=== PATIENT | male | born 1980 | race Caucasian/White ===

== ENCOUNTER 2022-01-26 17:06 | Outpatient (CLI) | payer OTHER, SELFPAY ==
--- OUTSIDE RECORDS SUMMARY | 2022-01-26 07:35 | XMS_ITS | Encounter Summary ---
:1980 Author Organization [facility] Address [address] [place] [address] Care Team Providers Name Role Phone Unavailable Primary Care Provider Unavailable Encounter Details Date Type Department Care Team Description 09/23/2020 [facility] Samantha Cortez Injury Of AND CLINICS Yefri Espinoza Unspecified Body [address] [place] [address] [facility] [place] [address] [place], [place] Encounter (Primary [phone] [id number] Dx) Social History Tobacco Use Types Packs/Day Years Used Date Smoking Tobacco: Never Smokeless Tobacco: Never Alcohol Use Standard Drinks/Week Comments No 0 (1 standard drink = 0.6 oz pure alcoho l) 2-3 mugs coffee daily Alcohol Habits Answer Date Recorded How often do you have a drink containing alcohol? Monthly or less 06/17/2020 How many drinks containing alcohol do you have on 1 or 2 06/17/2020 a typical day when you are drinking? How often do you have six or more drinks on one Never 05/04/2019 occasion? Comment: 2-3 mugs coffee daily 11/26/2017 Social Isolation Answer Date Recorded In a typical week, how many times do you talk on Twice a wee k 06/17/2020 the phone with family, friends, or neighbors? How often do you get together with friends or Never 06/17/2020 relatives? How often do you attend presybeterian or caodaism Never 05/04/2019 services? Do you belong to any clubs or organizations such No 06/17/2020 as presybeterian groups, unions, fraternal or athletic groups, or school groups? How often do you attend meetings of the clubs or 1 to 4 time s per year 06/17/2020 organizations you belong to? Are you now , , , 05/04/2019 , never or living with a partner? Physical Activity Answer Date Recorded On average, how many days per week do you engage in moderate to 3 days 06/17/2020 strenuous exercise (like walking fast, running, jogging, dancing, swimming, biking, or other activities that cause a light or heavy sweat)? On average, how many minutes do you engage in exercise at th is 60 min 06/17/2020 level? Stress Answer Date Recorded Do you feel stress - tense, restless, nervous, or To some ex tent 06/17/2020 anxious, or unable to sleep at night because your mind is troubled all the time - these days? Financial Resource Strain Answer Date Recorded How hard is it for you to pay for the very basics like Not v porter hard 06/17/2020 food, housing, medical care, and heating? Food Insecurity Answer Date Recorded Within the past 12 months, you worried that your food would Never true 05/04/2019 run out before you got money to buy more. Within the past 12 months, the food you bought just didn't N ever true 05/04/2019 last and you didn't have money to get more. Transportation Needs Answer Date Recorded In the past 12 months, has lack of transportation kept you f rom No 05/04/2019 medical appointments or from getting medications? In the past 12 months, has lack of transportation kept you f rom No 05/04/2019 meetings, work, or getting things needed for daily living? Education Answer Date Recorded What is the highest level of school Bachelor's degree (e.g., BA, AB, 05/04/2019 you have completed or the highest BS) degree you have received? 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
--- OUTSIDE RECORDS SUMMARY | 2022-01-26 07:35 | XMS_ITS | Encounter Summary ---
:1980 Author Organization [facility] Address [address] [place] [address] Care Team Providers Name Role Phone Unavailable Primary Care Provider Unavailable Reason for Visit MRI/CAT/PET Scan (Routine) - Closed Specialty Diagnoses / Procedures Referred By Contact Refer red To Contact Radiology Diagnoses Pain Low Back Unspecified Holli Belle P.A.-C., [facility] Procedures MR Lumbar Spine without and with IV Contrast MR Lumbar Spine without IV Contrast AL MRI LUMB SPINE WO CNTRST HC MRI LUMB SPINE WO CNTRST AL MRI LUMB SPINE WO/W CNTRST HC MRI LUMB SPINE WO/W CNTRST AL MRI LUMB SPINE WO/W CNTRST M.S. [address] [place] [phone] Referral ID Status Reason Start Date Expiration Date Visits Requ ested Visits Authorized [id number] Closed 02/28/2018 02/28/2019 1 1 Encounter Details Date Type Department Care Team Description 03/11/2018 Hospital Encounter Department of Radiology, Chidi Belle i, Pain Low Back el Uriarte P.A.-C., M.S. [place], [place] [address] [place] [address] [place] [phone] Social History Tobacco Use Types Packs/Day Years [...] 06/17/2020 relatives? How often do you attend hindu or gnosticism Never 05/04/2019 services? Do you belong to any clubs or organizations such No 06/17/2020 as hindu groups, unions, fraternal or athletic groups, or [...] or getting things needed for daily living? Sex Assigned at Date Recorded Not on file documented as of this encounter Medications at Time of Discharge Medication Sig Dispensed Refills Start Date End Date fenofibrate (LOFIBRA) 160 Take 160 mg by 0 2017 mg tablet mouth every morning. acetaminophen (TYLENOL) Take 1,000 mg by 0 05/08/2019 500 mg tablet mouth every 8 (eight) hours. ibuprofen (ADVIL,MOTRIN) Take 600 mg by 0 03/21/2020 200 mg capsule mouth every 8 (eight) hours as needed for pain (as needed). lisinopril Take 10 mg by mouth 0 11/02/201705/08 (PRINIVIL,ZESTRIL) 10 mg at bedtime. tablet omega-3 acid ethyl esters Take 2 g by mouth 0 05/08/2019 (LOVAZA) 1 gram capsule every morning. 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 documented in this encounter Results MR Lumbar Spine without and with IV Contrast (03/11/2018 1:26 PM CDT) Anatomical Region Laterality Modality Lumbar Spine, Neuroradiology RST LOS, Neuroradiology N/A Magnetic Resonance [facility], [facility] Specimen (Source) Anatomical Collection Method Collection Time Re ceived Time Location / / Volume Laterality 03/11/2018 1:52 PM CDT Impressions 03/11/2018 2:06 PM CDT IMPRESSION: Recurrent L4-5 disc herniation. See below. Narrative 03/11/2018 2:06 PM CDT EXAM: MR LUMBAR SPINE WITHOUT AND WITH IV CONTRAST FINDINGS: MRI lumbar spine without and w ith intravenous gadolinium 03/11/2018. Indication right lower extremity pain, h istory right L4-5 hemilaminectomy, discectomy, and foraminotomy 11/29/2017. Comparison 07/07/2017. The conus appears intact. L1-2: Normal. L2-3: A left lateral to far lateral disc herniation is not definitely changed. This results in mild left foraminal narr owing. L3-4: A central disc protrusion is not d efinitely changed. This minimally contacts the traversing L4 nerve roots. The neural foramina are patent. L4-5: There is a new large right postero lateral extrusion extending superiorly and inferiorly from the disc space. The bilobed rounded configuration suggests the possibility of sequestration. There is extension to the medial right neural foramen. There is effacement of the righ t ventral thecal sac. The traversing right L5 nerve root is not well visualiz ed at the level of the lateral recess. Mixed Modic type I and type II endplate change is again present. L5-S1: A central to left posterolateral protrusion is not definitely changed. There is minimal contact of the traversi ng left S1 nerve root. Minimal left foraminal narrowing. Procedure Note Michelet Agosto M.D. - 03/11/2018 EXAM: MR LUMBAR SPINE WITHOUT AND WITH I V CONTRAST FINDINGS: MRI lumbar spine without and w ith intravenous gadolinium 03/11/2018. Indication right lower extremity pain, h istory right L4-5 hemilaminectomy, discectomy, and foraminotomy 11/29/2017. Comparison 07/07/2017. The conus appears intact. L1-2: Normal. L2-3: A left lateral to far lateral disc herniation is not definitely changed. This results in mild left foraminal narr owing. L3-4: A central disc protrusion is not d efinitely changed. This minimally contacts the traversing L4 nerve roots. The neural foramina are patent. L4-5: There is a new large right postero lateral extrusion extending superiorly and inferiorly from the disc space. The bilobed rounded configuration suggests the possibility of sequestration. There is extension to the medial right neural foramen. There is effacement of the righ t ventral thecal sac. The traversing right L5 nerve root is not well visualiz ed at the level of the lateral recess. Mixed Modic type I and type II endplate change is again present. L5-S1: A central to left posterolateral protrusion is not definitely changed. There is minimal contact of the traversi ng left S1 nerve root. Minimal left foraminal narrowing. IMPRESSION: Recurrent L4-5 disc herniati on. See below. Holli Belle P.A.-C., M.S. IMG MRI PROCEDURES documented in this encounter Visit Diagnoses Diagnosis Pain Low Back Unspecified documented in this encounter Administered Medications Inactive Administered Medications - up to 3 most recent administrations Medication Order MAR Action Action Date Dose Rate Site gadobutrol injection 0.5-15 mL Given 03/11/2018 1:19 PM CDT 12 m L (GADAVIST) 0.5-15 mL, intravenous, Once in imaging, contrast, Starting on Wed03/11/18 at 1230, For 1 dose, Imaging Protocol Orders, Dose per Radiant Medication Guidelines documented in this encounter
--- OUTSIDE RECORDS SUMMARY | 2022-01-26 07:35 | XMS_ITS | Encounter Summary ---
:1980 Author Organization [facility] Address [address] [place] [address] Care Team Providers Name Role Phone Unavailable Primary Care Provider Unavailable Reason for Visit Appointment Request (Routine) - Closed Specialty Diagnoses / Procedures Referred By Contact Refer red To Contact Neurological Surgery Diagnoses Pain Low Back Unspecified Referral ID Status Reason Start Date Expiration Date Visits Requ ested Visits Authorized [id number] Closed 02/14/2020 02/13/2021 1 1 Encounter Details Date Type Department Care Team Description 03/26/2020 Comprehensive Visit Department of Blanche Marie Ba (Primary Neurologic Surgery Arlet Griffin APRN, Dx) in [facility] [address] [facility] [address] [place] [phone] Social History Tobacco Use Types Packs/Day Years [...] 06/17/2020 relatives? How often do you attend orthodox or rastafarian Never 05/04/2019 services? Do you belong to any clubs or organizations such No 06/17/2020 as orthodox groups, unions, fraternal or athletic groups, or [...] on file documented as of this encounter Consult Notes Arlet Marie APRN, C.N.P. - 03/26/2020 12:00 PM CST SUBJECTIVE Chief Complaint: Left buttock pain History of Present Illness: Mr. Parisi is a pleasant 39-year-old known to Neurosurgery from a prior lumbar diskectomy in 2018. Prior to that surgery he had been struggling with right leg symptoms, which resolved following surgery.In March of 2018, he had recurrent right leg symptoms, he had recurrent right leg symptoms and anMRI scan demonstrated a large disc reherniation. He chose to continue with conservative management and his symptoms did resolve. He has had some difficulties off and on, however a couple of months ago he had the onset of severe left buttock pain. This did not radiate down the leg. He was given oral steroids for 10 days which significantly improved his pain. He continues to struggle with some left buttock region pain, along with some right-sided pain at times. He has no radiating leg pain. He has no bowel or bladder symptoms. He has no new weakness in his legs. Review of Systems: The following systems were negative: GI, OBJECTIVE Physical Exam: Neuro: He has 5/5 strength in his bilateral upper and lower extremities. He has a negative straight leg raise. He does not have any tenderness to palpation of his spine or SI joints. He is able to stand on his heels and toes without difficulty. ASSESSMENT / PLAN #1 Left buttock pain Given his pain has been improving, we discussed continued conservative management at this point. If his pain recurs, we could trial oral steroids or alternatively consider facet injections if this continues to be primarily buttock region pain. He could certainly utilize NSAID's as needed. He can contin ue with the Pilates to work on his core strength. He could also trial massage, acupuncture, or chiropractic treatment for his low back if he wishes. He is welcome to call me at any point and we can make further recommendations as needed. I personally spent over half of a total 20 minutes face to face with the patient in counseling and discussion and/or coordination of care as described above. 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
--- OUTSIDE RECORDS SUMMARY | 2022-01-26 07:35 | XMS_ITS | Encounter Summary ---
:1980 Author Organization [facility] Address [address] [place] [address] Care Team Providers Name Role Phone Unavailable Primary Care Provider Unavailable Encounter Details Date Type Department Care Team Description 05/08/2019 Hospital Encounter Department of Malcolm Velasquez Hypereugenio ipidemia; Radiology, Lane Humphreys M.D. Hypertriglyceridemia Building, in [address] [place] [phone] [place] [address] [place], [place] (Work) [phone] Social History Tobacco Use Types Packs/Day Years [...] 06/17/2020 relatives? How often do you attend jehovah's witness or orthodox Never 05/04/2019 services? Do you belong to any clubs or organizations such No 06/17/2020 as jehovah's witness groups, unions, fraternal or athletic groups, or [...] Sig Dispensed Refills Start Date End Date amLODIPine (NORVASC) 5 mg Take 5 mg by mouth 3 tablet daily. fenofibrate (LOFIBRA) 160 Take 160 mg by mouth 0 10/02/2017 mg tablet every morning. metFORMIN XR Take 1 tablet by 0 02/09/2019 (GLUCOPHAGE-XR) 500 mg 24 mouth daily. hr tablet ibuprofen (ADVIL,MOTRIN) Take 600 mg by mouth 0 03/21/2020 200 mg capsule every 8 (eight) hours as needed for pain (as needed). 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 documented in this encounter Results DX Chest AP or PA and Lateral 2 Views (05/08/2019 11:03 AM LOCAL DELIVERY DRIVER) Anatomical Region Laterality Modality Chest, Thoracic RST LOS, Thoracic ARZ LOS, Thoracic N/A Digital Radiography FLA LOS Specimen (Source) Anatomical Collection Method Collection Time Re ceived Time Location / / Volume Laterality 05/08/2019 1:14 PM LOCAL DELIVERY DRIVER Impressions 05/08/2019 1:44 PM LOCAL DELIVERY DRIVER No priors available for comparison. Nega tive chest. Narrative 05/08/2019 1:44 PM LOCAL DELIVERY DRIVER EXAM: ??DX CHEST AP OR PA AND LATERAL 2 VIEWS Procedure Note Jacquie Martínez M.D. - 05/08/2019Format ting of this note might be different from the original. EXAM: DX CHEST AP OR PA AND LATERAL 2 EWS IMPRESSION: No priors available for comparison. Nega tive chest. Malcolm [facility]URJA[facility] documented in this encounter Visit Diagnoses Diagnosis Hyperlipidemia Hypertriglyceridemia documented in this encounter
--- OUTSIDE RECORDS SUMMARY | 2022-01-26 07:35 | XMS_ITS | Encounter Summary ---
:1980 Author Organization [facility] Address [address] [place] [address] Care Team Providers Name Role Phone Unavailable Primary Care Provider Unavailable Reason for Referral Outpatient (Routine) - Closed Specialty Diagnoses / Procedures Referred By Contact Refer red To Contact Diagnoses Pain Low Back Unspecified Myofascial Pain Syndrome Pain Knee Right Pain Shoulder Right Sandie Patel APRN, CNS, [facility] Procedures [facility] Massage Therapy D.N.P., M.S.N. [address] [place] [phone] Referral ID Status Reason Start Date Expiration Date Visits Requ ested Visits Authorized [id number] Closed 06/20/2020 06/20/2021 1 1 utpatient (Routine) - Closed Specialty Diagnoses / Procedures Referred By Contact Refer red To Contact Diagnoses Pain Low Back Unspecified Myofascial Pain Syndrome Pain Knee Right Pain Shoulder Right Sandie Patel APRN, CNS, [facility] Procedures [facility] Acupuncture D.N.P., M.S.N. [address] [place] [phone] Referral ID Status Reason Start Date Expiration Date Visits Requ ested Visits Authorized [id number] Closed 06/20/2020 06/20/2021 1 1 TION CONSULTANT Reason for Visit Outpatient (Routine) - Closed Specialty Diagnoses / Procedures Referred By Contact Refer red To Contact Pain Medicine Diagnoses Pain Low Back Unspecified Arlet Marie APRN, [place] C.N.P. [address] [place], [place] [phone] Referral ID Status Reason Start Date Expiration Date Visits V isits Requested Authorized [id number] Closed Specialty 06/04/2020 06/04/2021 1 1 Services Required Encounter Details Date Type Department Care Team Description 06/20/2020 Comprehensive Visit Division of Pain Sandie Patel ascial Pain Syndrome (Primary Dx); Medicine in [place], DIRECTOR MONEY, NARCOTICS AND VICE DETECTIVE, Pain Low Back; [place], [place] D.N.P., M.S.N. Pain Knee Right; [address] [facility] Pain Shoulder Right; [place], [place] Lumbar Disc D isorder; [id number] Pain Neck [phone] Social History Tobacco Use Types Packs/Day Years [...] 06/17/2020 relatives? How often do you attend samaritan or yazidi Never 05/04/2019 services? Do you belong to any clubs or organizations such No 06/17/2020 as samaritan groups, unions, fraternal or athletic groups, or [...] on file documented as of this encounter Last Filed Vital Signs Vital Sign Reading Time Taken Comments Blood Pressure 157/94 06/20/2020 2:25 PM SOLUTION CONSULTANT Pulse 97 06/20/2020 2:25 PM SOLUTION CONSULTANT Temperature - - Respiratory Rate - - Oxygen Saturation - - Inhaled Oxygen Concentration - - Weight 123 kg (271 lb 2.7 oz) 06/20/2020 2:25 PM SOLUTION CONSULTANT Height 199.5 cm (6' 6.54) 06/20/2020 2:25 PM SOLUTION CONSULTANT Body Mass Index 30.9 06/20/2020 2:25 PM SOLUTION CONSULTANT documented in this encounter Consult Notes Sandie Patel APRN, INDY, D.N.P., M.S.N. - 06/20/2020 2:30 PM CST CHIEF COMPLAINT / REASON FOR VISIT: Left low back and buttock pain Right knee pain Right shoulder pain Neck pain HISTORY OF PRESENT ILLNESS Mr. Parisi is a 39 y.o. male that has a past medical history of Hyperlipidemia, Hypertension NOS, Obstructive Sleep Apnea Adult, and Other Injury Of Unspecified Body Region (1993). He is presenting withmultiple areas of discomfort including: Right knee, right shoulder, neck and left low back and buttock pain. He is accompanied to this appointment by his He has been struggling with right leg symptoms and subsequently underwent a discectomy in 2018. In March of 2018, he had recurrent right leg symptoms, he had recurrent right leg symptoms and an MRI scan demonstrated a large disc reherniation. He continued with conservative management and his symptoms improved and eventually resolved. He was last seen in clinic by Arlet Marie APRN on 03/26/2020.I would refer the reader to her note for additional information. As mentioned above, he has many areas of discomfort and are as follows: His right knee pain started in 2004, his right shoulder pain started in 2009, his low back pain started in 2016, and is neck/shoulder pain started in 2019. He cannotrecall any specific event that caused his discomfort. However, he states that his pain is only goingto ???get worse ???. His overall pain comes and goes varies in the level of severity. His current pain score at this appointment is 2/10 but can be as high as 7/10. MANAGEMENT Current Medications: Ibuprofen Previous Medication Trials: Medrol Dosepak Previous Injections: Epidural steroid injections x2 for lumbar radiculopathy Right knee injection Physical Therapy: No formal physical therapy however participates in Pilates and perform stretching exercises. Ice and heat as needed REVIEW OF SYSTEMS: Tejas Parisi's history was reviewed including allergies, current medications, review of systems, family history, medical and surgical history, social history, and problem list. OBJECTIVE PHYSICAL EXAM GENERAL: Alert, oriented, and answering questions appropriately. SKIN: No gross rashes or lesions present. HEAD: Normocephalic and atraumatic. EYES: Sclera anicteric. LUNGS: Normal respiratory excursions. SPINE: Full range of motion cervical thoracic and lumbar spine. Negative facet loading. No pain identified in the SI PSIS areas. MUSCULOSKELETAL: SLR was negative. Hip exam demonstrated no pain identified with abduction are ad duction evaluation NEURO: Strength was grossly preserved all extremities. Reflexes were within normal limits Sensation was intact to light touch and pinprick. GAIT: Tandem gait intact able to walk on heels and toes. DIAGNOSTICS MRI lumbar spine 03/11/2018 Recurrent L4-5 disc herniation ASSESSMENT / PLAN #1 Low back pain #2 Lumbar radiculopathy #3 Right knee pain #4 Right shoulder pain #5 Neck pain # Chronic pain syndrome # Myofascial pain Mr. Garrido is a 39 y.o. male that has a past medical history of Hyperlipidemia, Hypertension NOS, Obstructive Sleep Apnea Adult, and Other Injury Of Unspecified Body Region (1993). He is presenting with multiple areas of discomfort. Findings on evaluation are consistent with chronic pain syndrome. RECOMMENDATIONS We discussed treatment options which include but not limited to: Medication management, injections, therapy, and neuromodulation. 1. In regards to medication, he does not want to begin any prescription medication at this time. We did discuss utilizing ibuprofen alternating with Tylenol to help with this pain flare. In addition, we discussed topical agents such as icy Hot, Biofreeze, Voltaren gel. It appears that he will begin Voltaren gel on his areas of discomfort. If the Voltaren gel does not prove beneficial, we also discussed a compounding agent. 2. A regards to therapy, he does not wish to participate in physical therapy at this time. We did discuss myofascial release which may help with his shoulder/neck discomfort. He will investigate massage and myofascial release closer to home. I did provide a prescription for massage therapy. We discussed aqua therapy. He does swim and will entertain this intervention in the future. In addition, we diddiscuss acupuncture. He is interested in this intervention. I provided a prescription to be completed closer to home. 3. If the above interventions to not provide significant relief, we also discussed the possibility of scrambler therapy. We discussed that the treatments are usually 10 consecutive this is days for 90 minutes sessions. Is not uncommon that the insurance does not always cover this treatment. I quoted acost 300 dollars per session for a total of 3000 dollars. 4. In regards to his right knee discomfort. In addition to physical therapy and injections, we did discuss a possible genicular block as a pathway to genicular ablation. At this time, his knee pain does not appear to be the main focus of this appointment. 5. We briefly discussed the role of trigger point injections for the myofascial discomfort if myofascial release and acupuncture massage do not work. 6. We talked about the role of epidural steroid injection if his low back and radicular pain becomesaggravated. Again, at this time, we will not entertain this intervention at this time. 7. Further discussed the role of peripheral nerve stimulation and neuromodulation we briefly discussed this role in this treatment planned. However, his pain does not appear to require this intervention at this time. Mr. Parisi agrees. 8. Lastly, we discussed the role of cognitive behavioral therapy. We discussed a wellness consult aswell as a multidisciplinary approach to pain management such as [facility]. This would provide as structural program with daily personal eyes physical therapy and application of cognitive behavioral therapies to address deconditioning and pain management strategies. FOLLOW-UP: As needed In our practice, we have a team model of care and any subsequent visits may be with one of my colleagues which include FRANSICO TOWNSEND, or attending physician. Patient education: The patient was ready to learn and had no apparent learning barriers. Their learning preferences includes listening. The diagnosis and treatment plans were explained and the patient expressed understanding of the content. 60 minutes were provided in this [id number] consultation with over 50% of the time devoted to patient education and coordination of care. This patient was seen under the supervision of Dr. Gifford. Sandie Patel APRN, NARCOTICS AND VICE DETECTIVE, D.N.P., M.S.N. DIAGNOSES Answers for HPI/ROS submitted by the patient on 06/17/2020 Fatigue: Yes No eye issues: Yes No ENT issues: Yes No heart issues: Yes No respiratory issues: Yes No GI issues: Yes Muscle pain/stiffness: Yes Pain or stiffness in the joints: Yes Joint swelling: Yes Back pain/stiffness: Yes No skin issues: Yes Headache: Yes Numbness or shooting pain in hands, arms, legs or feet: Yes Little interest or pleasure in doing things: Yes Feeling down, depressed, or hopeless: Yes Feeling nervous, anxious or on edge: Yes No blood/lymph issues: Yes No urinary/reproductive issues: Yes TION CONSULTANT documented in this encounter Plan of Treatment Scheduled Orders Name Type Priority Associated Diagnoses Order S chedule [facility] Acupuncture Procedures Routine Pain Low Back Expected: 06/20/2020 Myofascial Pain Syndrome (Approximate), Pain Knee Right Expires: 06/20/2023 Pain Shoulder Right [facility] Massage Therapy Procedures Routine Pain Low Zenon k Expected: 06/20/2020 Myofascial Pain Syndrome (Approximate), Pain Knee Right Expires: 06/20/2023 Pain Shoulder Right Scheduled Procedures Name Priority Associated Diagnoses Date/Time DECOMPRESSION SPINE - POSTERIOR LUMBAR Lumbar Di sc Disorder documented as of this encounter Visit Diagnoses Diagnosis Myofascial Pain Syndrome - Primary Pain Low Back Unspecified Pain Knee Right Pain Shoulder Right Lumbar Disc Disorder Pain Neck documented in this encounter
--- OUTSIDE RECORDS SUMMARY | 2022-01-26 07:35 | XMS_ITS | Encounter Summary ---
:1980 Author Organization [facility] Address [address] [place] [address] Care Team Providers Name Role Phone Unavailable Primary Care Provider Unavailable Encounter Details Date Type Department Care Team Description 02/10/2019 [facility]ef[facility] Espinoza (Primary Dx) CLINICS [address] [place] [address] [place] [address] [phone] Social History Tobacco Use Types Packs/Day Years [...] 06/17/2020 relatives? How often do you attend nondenominational or pentecostalism Never 05/04/2019 services? Do you belong to any clubs or organizations such No 06/17/2020 as nondenominational groups, unions, fraternal or athletic groups, or [...] as of this encounter Visit Diagnoses Diagnosis Hypertriglyceridemia - Primary documented in this encounter
--- OUTSIDE RECORDS SUMMARY | 2022-01-26 07:35 | XMS_ITS | Encounter Summary ---
:1980 Author Organization [facility] Address [address] [place] [address] Care Team Providers Name Role Phone Unavailable Primary Care Provider Unavailable Reason for Visit Outpatient (Routine) - Closed Specialty Diagnoses / Procedures Referred By Contact Refer red To Contact Neurological Surgery Holli Belle P.A.-C., M.S. [address] [place] [phone] Referral ID Status Reason Start Date Expiration Date Visits Requ ested Visits Authorized [id number] Closed 02/28/2018 02/28/2019 1 1 Encounter Details Date Type Department Care Team Description 03/11/2018 Office Visit Department of Evaristo Smith, Radicuhitesh davis Neurologic Surgery in [place]af[place] Lumbos acral (Primary [place], [place] Dx) [address] [place] [phone] Social History Tobacco Use Types Packs/Day Years [...] 06/17/2020 relatives? How often do you attend evangelical or voodoo Never 05/04/2019 services? Do you belong to any clubs or organizations such No 06/17/2020 as evangelical groups, unions, fraternal or athletic groups, or [...] Sign Reading Time Taken Comments Blood Pressure - - Pulse - - Temperature - - Respiratory Rate - - Oxygen Saturation - - Inhaled Oxygen Concentration - - Weight 120 kg (264 lb 5.3 oz) 03/11/2018 3:42 PM CDT Height 195 cm (6' 4.77) 03/11/2018 3:42 PM CDT Body Mass Index 31.53 03/11/2018 3:42 PM CDT documented in this encounter Progress Notes Evaristo Smith M.D. - 03/11/2018 3:30 PM CDT CHIEF COMPLAINT/REASON FOR VISIT Recurrent right leg pain. HISTORY OF PRESENT ILLNESS Mr. Parisi is a 37-year-old gentleman who I originally saw on 11/19/2017 for a right L5 radiculopathy that had failed nonoperative management. On 11/29/2017 he underwent a right L4-5 hemilaminectomy and microdiskectomy with myself and Dr. Briscoe. He had an uncomplicated hospital stay and he was discharged on 11/30/2017. I last saw him on 01/20/2018, at which time he was doing well and he had returned to work. He had wanted to start physical therapy, which he did start. On 02/28/2018, he had reoccurrenceof his right leg pain. It is not as severe as his pain that he had prior to surgery. At that time hewas having to use a gait aid and it was much worse. His current pain occurs mainly with activity and transitioning from sitting to standing. He is continuing to work. It does get worse with walking. It is exactly the same as his preoperative pain last time. OBJECTIVE PHYSICAL EXAMINATION Neurologic Exam: I could find no weakness. He had good strength in his bilateral lower extremities. He is able to walk on both his heels and toes without difficulty. DIAGNOSTICS I reviewed an MRI from today, March 11, 2018, which shows a very large recurrent L4-5 disk herniation ASSESSMENT / PLAN I discussed the findings of the MRI of Mr. Parisi and his significant other. He certainly has a largedisk reherniation, but given that his symptoms are minimum, I think he could proceed with an injection and nonoperative management again versus repeat surgery.Given the size of the herniation, I worry that it will not absorb. Overall, he would favor proceeding with surgery. I told him I would discuss the case with Dr. Briscoe to see if we should proceed with an injection first. We will work to figure this out within the next few days and proceed from there. ADDENDUM: Discussed the case further with Dr. Briscoe and he thinks proceeding with surgery is the best course of action given the size of the disk herniation. #1 Status post right L4-5 hemilaminectomy #2 Recurrent L4-5 disk herniation #3 L5 radiculopathy CONTROL SPECIALIST documented in this encounter Plan of Treatment Scheduled Procedures Name Priority Associated Diagnoses Date/Time DECOMPRESSION SPINE - POSTERIOR LUMBAR Lumbar Di sc Disorder documented as of this encounter Visit Diagnoses Diagnosis Radiculopathy Lumbosacral - Primary documented in this encounter
--- OUTSIDE RECORDS SUMMARY | 2022-01-26 07:35 | XMS_ITS | Encounter Summary ---
:1980 Author Organization [facility] Address [address] [place] [address] Care Team Providers Name Role Phone Unavailable Primary Care Provider Unavailable Encounter Details Date Type Department Care Team Description 02/09/2020 Clinical Communication Department of Spine Sergio singleton in [facility] [address] [place] [address] Social History Tobacco Use Types Packs/Day Years [...] 06/17/2020 relatives? How often do you attend confucianism or bahai Never 05/04/2019 services? Do you belong to any clubs or organizations such No 06/17/2020 as confucianism groups, unions, fraternal or athletic groups, or [...] documented as of this encounter Visit Diagnoses Not on filedocumented in this encounter
--- OUTSIDE RECORDS SUMMARY | 2022-01-26 07:35 | XMS_ITS | Encounter Summary ---
:1980 Author Organization [facility] Address [address] [place] [address] Care Team Providers Name Role Phone Unavailable Primary Care Provider Unavailable Encounter Details Date Type Department Care Team Description 09/25/2020 Orders Only Department of Neurologic Tim Matthews R.N. Surgery in [place], [facility] [address] [place], [place] [address] [facility] [phone] [place] [phone] Social History Tobacco Use Types Packs/Day Years [...] 06/17/2020 relatives? How often do you attend restorationism or hinduism Never 05/04/2019 services? Do you belong to any clubs or organizations such No 06/17/2020 as restorationism groups, unions, fraternal or athletic groups, or [...]
--- OUTSIDE RECORDS SUMMARY | 2022-01-26 07:35 | XMS_ITS | Encounter Summary ---
:1980 Author Organization [facility] Address [address] [place] [address] Care Team Providers Name Role Phone Unavailable Primary Care Provider Unavailable Reason for Referral Physical Therapy (Routine) - Closed Specialty Diagnoses / Procedures Referred By Contact Refer red To Contact Physical Therapy Diagnoses Lumbar Disc Disorder Evaristo Smith M.D. 200 [place] [address] Referral ID Status Reason Start Date Expiration Visits Visits Date Requested Authorized [id number] Closed Patient 01/20/2018 01/20/2019 1 1 Preference Reason for Visit Outpatient (Routine) - Closed Specialty Diagnoses / Procedures Referred By Contact Refer red To Contact Neurological Surgery Holli Belle P.A.-C., M.S. [address] [place] [phone] Referral ID Status Reason Start Date Expiration Date Visits Requ ested Visits Authorized [id number] Closed 11/30/2017 11/30/2018 1 1 Encounter Details Date Type Department Care Team Description 01/20/2018 Office Visit Department of Evaristo Smith, Lumbar Di sc Disorder Neurologic Surgery in [place] (Prima ry Dx) [place], [place] [address] [place] [phone] Social History Tobacco Use Types Packs/Day Years [...] 06/17/2020 relatives? How often do you attend yarsani or church Never 05/04/2019 services? Do you belong to any clubs or organizations such No 06/17/2020 as yarsani groups, unions, fraternal or athletic groups, or [...] on file documented as of this encounter Progress Notes Evaristo Smith M.D. - 01/20/2018 3:30 PM CDT CHIEF COMPLAINT/REASON FOR VISIT Followup of microdiskectomy. HISTORY OF PRESENT ILLNESS Mr. Parisi is a 37-year-old gentleman, who presented on 11/19/2017, in clinic with right leg pain consistent with a L5 radiculopathy for which she had failed nonoperative management. On 11/29/2017, he proceeded to the OR for a right L4-5 hemilaminectomy and microdiskectomy with myself and Dr. Briscoe. He comes for followup today. In the interim, he has been doing well. He has returned to work, which was a week after surgery. He has some occasional twinges of pain down his right leg and some occasional twinges of pain in the muscles around his incision, but overall is doing very well. He continues to have some numbness in the area of his big toe. ASSESSMENT / PLAN Mr. Parisi is doing well after his microdiskectomy. His right leg pain is gone. His incision is well healed. I provided a script for outpatient physical therapy and discussed weightlifting increase of 5pounds over the next 6 or so weeks until he is around 50 pounds, then he can begin activity as tolerated. I discussed that he needs no further followup but is welcome to contact me if any questions or other issues arise in the future. #1 Follow up after right L4-5 microdiskectomy documented in this encounter Plan of Treatment Scheduled Procedures Name Priority Associated Diagnoses Date/Time DECOMPRESSION SPINE - POSTERIOR LUMBAR Lumbar Di sc Disorder documented as of this encounter Visit Diagnoses Diagnosis Lumbar Disc Disorder - Primary documented in this encounter
--- OUTSIDE RECORDS SUMMARY | 2022-01-26 07:35 | XMS_ITS | Encounter Summary ---
:1980 Author Organization [facility] Address [address] [place] [address] Care Team Providers Name Role Phone Unavailable Primary Care Provider Unavailable Reason for Referral Outpatient (Routine) - Closed Specialty Diagnoses / Procedures Referred By Contact Refer red To Contact Neurological Surgery Holli Belle P.A.-C., M.S. [address] [place] [phone] Referral ID Status Reason Start Date Expiration Date Visits Requ ested Visits Authorized [id number] Closed 02/28/2018 02/28/2019 1 1 Encounter Details Date Type Department Care Team Description 02/28/2018 Orders Only Department of Neurologic Holli Belle P ain Low Back Surgery in [place], PMonica, M .S. [address] [place] [phone] (Wo rk) Social History Tobacco Use Types Packs/Day Years [...] 06/17/2020 relatives? How often do you attend restorationist or christianity Never 05/04/2019 services? Do you belong to any clubs or organizations such No 06/17/2020 as restorationist groups, unions, fraternal or athletic groups, or [...] - POSTERIOR LUMBAR Lumbar Di sc Disorder Scheduled Referrals Name Type Priority Associated Order Schedule Diagnoses 1 week - Neurological Outpatient Referral Routine Expected: Surgery office visit 018 (clinic) (Approximate), Expires: 02/28/2021 documented as of this encounter Visit Diagnoses Diagnosis Pain Low Back Unspecified documented in this encounter
--- OUTSIDE RECORDS SUMMARY | 2022-01-26 07:35 | XMS_ITS | Encounter Summary ---
:1980 Author Organization [facility] Address [address] [place] [address] Care Team Providers Name Role Phone Unavailable Primary Care Provider Unavailable Encounter Details Date Type Department Care Team Description 05/08/2019 Hospital Encounter Department of Malcolm Velasquezl ipidemia; Laboratory Medicine Yefri Humphreys Hypertriglyceridemia and Pathology, [address] [place] [address] in [facility] [address] [place] [phone] [place] [address] (Work) [place], [place] [phone] (Fax) [phone] Social History Tobacco Use Types Packs/Day Years [...] 06/17/2020 relatives? How often do you attend scientologist or restorationist Never 05/04/2019 services? Do you belong to any clubs or organizations such No 06/17/2020 as scientologist groups, unions, fraternal or athletic groups, or [...] Procedure Name Priority Date/Time Associated Comments Diagnosis PR-HEART CERAMIDE, P Routine 05/08/2019 9:23 Hyperlipide sarika Results for this AM [employer] Hypertriglyceridem procedure are in ia the results section. LIPID PANEL, S Routine 05/08/2019 9:23 Hyperlipidemia Results for this AM [employer] Hypertriglyceridem procedure are in ia the results section. THYROID FUNCTION Routine 05/08/2019 9:23 Hyperlipidemia Results for this CASCADE, S AM [employer] Hypertriglyceridem procedure are in ia the results section. CBC WITH DIFFERENTIAL, B Routine 05/08/2019 9:23 Hyperli pidemia Results for this AM [employer] Hypertriglyceridem procedure are in ia the results section. ALANINE AMINOTRANSFERASE Routine 05/08/2019 9:23 Hyperli pidemia Results for this (ALT), S/P AM [employer] Hypertriglyceridem procedure are in ia the results section. ASPARTATE Routine 05/08/2019 9:23 Hyperlipidemia Results for this AMINOTRANSFERASE (AST), AM [employer] Hypertriglyceride m procedure are in S/P ia the results section. SODIUM, S/P Routine 05/08/2019 9:23 Hyperlipidemia Results for this AM [employer] Hypertriglyceridem procedure are in ia the results section. POTASSIUM, S/P Routine 05/08/2019 9:23 Hyperlipidemia Results for this AM [employer] Hypertriglyceridem procedure are in ia the results section. GLUCOSE, FASTING, S/P Routine 05/08/2019 9:23 Hyperlipid emia Results for this AM [employer] Hypertriglyceridem procedure are in ia the results section. CREATININE WITH EGFR, Routine 05/08/2019 9:23 Hyperlipid emia Results for this S/P AM [employer] Hypertriglyceridem procedure are in ia the results section. documented in this encounter Results Sodium (05/08/2019 9:23 AM [employer]) P athologist Signature Sodium, S 139 135 - 145 05/08/2019 DTL mmol/L 10:32 AM [employer] Specimen Anatomical Collection Method Collection Time Receive d Time (Source) Location / / Volume Laterality Blood (Blood, 05/08/2019 9:23 AM 05/08/20 19 9:46 Venous) [facility] AM [employer] Malcolm Velasquez M.D. LAB BLOOD ADD-ON Performing Organization Address City/State/ZIP Code Phon e Number [facility] - [address] [place], [place] [address] [facility] [place] [address] [facility] [address] (ABNORMAL) PR-Heart Ceramide, Plasma (05/08/2019 9:23 AM [employer]) P athologist Signature PR-Heart 6 05/09/2019 DTL Ceramide Risk 3:26 PM [employer] [facility] Score Comment: Moderate Risk. Relative cardiovascular r isk is 1.5x baseline risk. ----REFERENCE VALUE---- 0-2 Lower Risk 3-6 Moderate Risk 7-9 Increased Risk 10-12 Higher Risk Ceramide (16:0) 0.39 (H) 0.19 - 0.36 mcmol/L 05/09/2019 3:2 6 PM [employer] DTL Ceramide (18:0) 0.16 (H) 0.05 - 0.14 mcmol/L 05/09/2019 3:2 6 PM [employer] [facility] DTL Ceramide (24:1) 1.25 0.65 - 1.65 mcmol/L 05/09/2019 3:2 6 PM [employer] [facility] DTL Ceramide (16:0)/(24:0) 0.07 <0.11 05/09/2019 3:26 P M [employer] [facility] DTL ratio Ceramide (18:0)/(24:0) 0.03 <0.05 05/09/2019 3:26 P M [employer] [facility] DTL ratio Ceramide (24:1)/(24:0) 0.22 <0.45 05/09/2019 3:26 P M [employer] [facility] DTL ratio Comment: ----ADDITIONAL INFORMATION---- Liquid Chromatography-Tandem Mass Spectr ometry (LC-MS/MS) This test was developed and its performa nce characteristics determined by [facility] in a manner consistent with CLIA requirements. This test has not been cleared or approved by the [place] d and Drug Administration. Specimen Anatomical Collection Method Collection Time Receive d Time (Source) Location / / Volume Laterality Blood (Blood, 05/08/2019 9:23 AM 05/08/20 19 Venous) [facility] [facility] 10:39 AM [employer] Malcolm Velasquez M.D. LAB BLOOD NON ADD-ON Performing Organization Address City/State/ZIP Code Phon e Number [facility] - [address] [place], [place] [address] [facility] [place] [address] [facility] [address] [facility] CBC with Differential (05/08/2019 9:23 AM [employer]) P athologist Signature Hemoglobin 14.3 13.2 - 05/08/2019 DTL 16.6 g/dL 10:14 AM [employer] Hematocrit 40.7 38.3 - 05/08/2019 DTL 48.6 % 10:14 AM [employer] Erythrocytes 4.60 4.35 - 05/08/2019 DTL 5.65 10:14 AM [employer] x10(12)/L MCV 88.5 78.2 - 05/08/2019 DTL 97.9 fL 10:14 AM [employer] RBC Distrib Width 12.2 11.8 - 05/08/2019 DTL 14.5 % 10:14 AM [employer] Platelet Count 267 135 - 317 05/08/2019 DTL x10(9)/L 10:14 AM [employer] Leukocytes 4.9 3.4 - 9.6 05/08/2019 DTL x10(9)/L 10:14 AM [employer] Neutrophils 2.64 1.56 - 05/08/2019 DTL 6.45 10:14 AM [employer] [facility] x10(9)/L Lymphocytes 1.62 0.95 - 05/08/2019 DTL 3.07 10:14 AM [employer] [facility] x10(9)/L Monocytes 0.38 0.26 - 05/08/2019 DTL 0.81 10:14 AM [employer] x10(9)/L Eosinophils 0.25 0.03 - 05/08/2019 DTL 0.48 10:14 AM [employer] x10(9)/L Basophils 0.05 0.01 - 05/08/2019 DTL 0.08 10:14 AM [employer] [facility] x10(9)/L Specimen Anatomical Collection Method Collection Time Receive d Time (Source) Location / / Volume Laterality Blood (Blood, 05/08/2019 9:23 AM 05/08/20 19 9:45 Venous) [employer] AM [employer] Malcolm Velasquez M.D. LAB BLOOD ADD-ON Performing Organization Address City/State/ZIP Code Phon e Number [facility] - [address] [place], [place] [address] [place] [address] Potassium (05/08/2019 9:23 AM [employer]) athologist Signature Potassium, S 4.6 3.6 - 5.2 05/08/2019 DTL mmol/L 10:32 AM [employer] Specimen Anatomical Collection Method Collection Time Receive d Time (Source) Location / / Volume Laterality Blood (Blood, 05/08/2019 9:23 AM 05/08/20 19 9:46 Venous) [employer] AM [employer] Malcolm Velasquez M.D. LAB BLOOD ADD-ON Performing Organization Address City/State/ZIP Code Phon e Number [facility] - 200 [place], [place] [address] [place] [id number] Thyroid Function [place] (05/08/2019 9:23 AM [employer]) athologist Signature TSH, Sensitive 0.9 0.3 - 4.2 05/08/2019 DTL mIU/L 10:32 AM [employer] Specimen Anatomical Collection Method Collection Time Receive d Time (Source) Location / / Volume Laterality Blood (Blood, 05/08/2019 9:23 AM 05/08/20 19 9:46 Venous) [employer] AM [employer] Malcolm Velasquez M.D. LAB BLOOD ADD-ON Performing Organization Address City/State/ZIP Code Phon e Number [facility] - 200 [place], [place] [address] [place] [address] Creatinine with Estimated GFR (05/08/2019 9:23 AM [employer]) athologist Signature Creatinine 0.90 0.74 - 05/08/2019 DTL 1.35 mg/dL 10:32 AM [employer] [facility] eGFR-Non >90 >=60 05/08/2019 DTL Black/ mL/min/BSA 10:33 AM [employer] [place] Comment: ----ADDITIONAL INFORMATION---- Estimated GFR calculated using the 2009 CKD_EPI creatinine equation. eGFR-Black/ >90 >=60 mL/min/BSA 2018 10:33 AM [employer] DT Comment: ----ADDITIONAL INFORMATION---- Estimated GFR calculated using the 2009 CKD_EPI creatinine equation. Specimen Anatomical Collection Method Collection Time Receive d Time (Source) Location / / Volume Laterality Blood (Blood, 05/08/2019 9:23 AM 05/08/20 9:46 Venous) [employer] AM [employer] Malcolm Velasquez M.D. LAB BLOOD ADD-ON Performing Organization Address City/State/ZIP Code Phon e Number [facility] - [address] [place] [address] [facility] [address] (ABNORMAL) ALT (Alanine Aminotransferase) (05/08/2019 9:23 AM [employer]) [facility] Method Time Signature Alanine 57 (H) 7 - 55 05/08/2019 DTL Aminotransferase U/L 10:32 AM [employer] (ALT), S Specimen Anatomical Collection Method Collection Time Receive d Time (Source) Location / / Volume Laterality Blood (Blood, 05/08/2019 9:23 AM 05/08/20 19 9:46 Venous) [employer] AM [employer] Malcolm Velasquez M.D. LAB BLOOD ADD-ON Performing Organization Address City/State/ZIP Code Phon e Number [facility] - [address] AST (Aspartate Aminotransferase) (05/08/2019 9:23 AM [employer]) [facility] Method Time Signature Aspartate 28 8 - 48 05/08/2019 DTL Aminotransferase U/L 10:32 AM [employer] (AST), S Specimen Anatomical Collection Method Collection Time Receive d Time (Source) Location / / Volume Laterality Blood (Blood, 05/08/2019 9:23 AM 05/08/20 19 9:46 Venous) [employer] AM [employer] Malcolm Velasquez M.D. LAB BLOOD ADD-ON Performing Organization Address City/State/ZIP Code Phon e Number [facility] - [address] [place] [phone] [place] [address] [facility] [address] (ABNORMAL) Glucose, Fasting (05/08/2019 9:23 AM [employer]) P athologist Signature Glucose, P 129 (H) 70 - 100 05/08/2019 DTL mg/dL 10:29 AM [employer] Last Intake 14 hr 05/08/2019 DTL 9:46 AM [employer] Specimen Anatomical Collection Method Collection Time Receive d Time (Source) Location / / Volume Laterality Blood (Blood, 05/08/2019 9:23 AM 05/08/20 9:46 Venous) [employer] AM [employer] Malcolm Velasquez M.D. LAB BLOOD NON ADD-ON Performing Organization Address City/State/ZIP Code Phon e Number [facility] - [address] [place], [place] [address] [facility] [place] [address] [facility] [address] (ABNORMAL) Lipid Panel (05/08/2019 9:23 AM [employer]) athologist Signature Cholesterol, 221 (H) mg/dL 05/08/2019 DTL Total 10:32 AM [employer] [facility] Comment: ----REFERENCE VALUE---- Desirable: < 200 Borderline high: 200 - 239 High: > or = 240 Triglycerides 448 (H) mg/dL 05/08/2019 10:32 AM [employer] DT L Comment: ----REFERENCE VALUE---- Normal: <150 Borderline high: 150-199 High: 200-499 Very high: > or =500 Cholesterol, HDL, S 36 (L) >=40 mg/dL 05/08/2019 10:32 AM [employer] [facility] DTL Calculated LDL CANCELED mg/dL 05/08/2019 10:32 AM [employer] D TL Comment: Triglyceride >400 mg/dL. Calculated LDL cholesterol is not valid. Non-HDL cholesterol may be used f or cardiovascular disease risk assessment when triglycerid es are >400 mg/dL. Result canceled by the ancillary. Cholesterol, Non-HDL, Calculated 185 (H) mg/dL 019 10:32 AM [employer] DTL Comment: ----REFERENCE VALUE---- Desirable: <130 Above Desirable: 130-159 Borderline high: 160-189 High: 190-219 Very high: > or =220 Specimen Anatomical Collection Method Collection Time Receive d Time (Source) Location / / Volume Laterality Blood (Blood, 05/08/2019 9:23 AM 05/08/20 19 9:46 Venous) [employer] AM [employer] Malcolm Velasquez M.D. LAB BLOOD ADD-ON Performing Organization Address City/State/ZIP Code Phon e Number [facility] - [address] [place], [place] [address] [place] [address] [facility] [address] documented in this encounter Visit Diagnoses Diagnosis Hyperlipidemia Hypertriglyceridemia documented in this encounter
--- OUTSIDE RECORDS SUMMARY | 2022-01-26 07:35 | XMS_ITS | Encounter Summary ---
:1980 Author Organization [facility] Address [address] [place] [address] Care Team Providers Name Role Phone Unavailable Primary Care Provider Unavailable Encounter Details Date Type Department Care Team Description 03/28/2018 Orders Only Department of Domingan, Tim Chinchilla, Lumbar Dis c Disorder Neurologic Surgery in R.N. (Primary Dx) [place], [place] [address] [facility] [address] [place] [phone] Social History Tobacco Use Types Packs/Day Years [...] 06/17/2020 relatives? How often do you attend zoroastrian or mormonism Never 05/04/2019 services? Do you belong to any clubs or organizations such No 06/17/2020 as zoroastrian groups, unions, fraternal or athletic groups, or [...]
--- OUTSIDE RECORDS SUMMARY | 2022-01-26 07:35 | XMS_ITS | Encounter Summary ---
:1980 Author Organization [facility] Address [address] [place] [address] Care Team Providers Name Role Phone Unavailable Primary Care Provider Unavailable Reason for Visit Reason Onset Date Comments Miscellaneous note needed 03/30/2018 Encounter Details Date Type Department Care Team Description 03/30/2018 Clinical Department of Kyle Briscoe note Communication Neurologic Surgery Shawna Brooks., Ph.D . needed in [place], [facility] [address] [place], [place] [address] [place] [id number] [place], [place] [phone] (Work) [phone] Social History Tobacco Use Types Packs/Day Years [...] 06/17/2020 relatives? How often do you attend islam or mandaeism Never 05/04/2019 services? Do you belong to any clubs or organizations such No 06/17/2020 as islam groups, unions, fraternal or athletic groups, or [...] on file documented as of this encounter Miscellaneous Notes Telephone Encounter - Kristine Mcclain - 04/04/2018 8:29 AM CST Called [facility] to let them know. AL TRANSPORTATION MANAGER Telephone Encounter - Evaristo Smith M.D. - 04/03/2018 9:40 PM CST Note is the chart. AL TRANSPORTATION MANAGER Telephone Encounter - Sherine Carter P.A.-C. - 04/01/2018 11:01 AM GLOBAL TRANSPORTATION MANAGER Are you able to do this letter discussing the surgical plan for surgery 04/11/18? AL TRANSPORTATION MANAGER Telephone Encounter - Chiara Betancourt R.N. - 03/30/2018 10:00 AM CST Kadie, This is a chief patient (Dr. Smith). Could you please forward this to Dr. Smith to take care of? Thanks AL TRANSPORTATION MANAGER Telephone Encounter - Kristine Mcclain - 03/30/2018 9:[address] Briscoe: Received a call from [facility]. They are asking if you can put a Miscellaneous note in patient chart stating what the surgical plan will be for 04/11/18 and why the patient is needing tohave surgery. They already submitted to insurance company but need this piece. Thanks. AL TRANSPORTATION MANAGER documented in this encounter Plan of Treatment Scheduled Procedures Name Priority Associated Diagnoses Date/Time DECOMPRESSION SPINE - POSTERIOR LUMBAR Lumbar Di sc Disorder documented as of this encounter Visit Diagnoses Not on filedocumented in this encounter
--- OUTSIDE RECORDS SUMMARY | 2022-01-26 07:35 | XMS_ITS | Encounter Summary ---
:1980 Author Organization [facility] Address [address] [place] [address] Care Team Providers Name Role Phone Unavailable Primary Care Provider Unavailable Reason for Referral Outpatient (Routine) - Closed Specialty Diagnoses / Procedures Referred By Contact Refer red To Contact Diagnoses Hyperlipidemia Hypertriglyceridemia Malcolm Velasquez M.D. [facility] Procedures Exercise ECG [address] [place], [place] [address] Referral ID Status Reason Start Date Expiration Date Visits Requ ested Visits Authorized [id number] Closed 04/04/2019 04/03/2020 1 1 UCTION MAINTENANCE MECHANIC Outpatient (Routine) - Closed Specialty Diagnoses / Procedures Referred By Contact Refer red To Contact Diagnoses Hyperlipidemia Hypertriglyceridemia Malcolm Velasquez M.D. [facility] Procedures ECG 12 Lead [address] [place] [address] Referral ID Status Reason Start Date Expiration Date Visits Requ ested Visits Authorized [id number] Closed 04/04/2019 04/03/2020 1 1 UCTION MAINTENANCE MECHANIC Reason for Visit Reason Onset Date Comments Pre-visit Testing Orders 04/04/2019 Encounter Details Date Type Department Care Team Description 04/04/2019 Clinical Department of Ron Pre-visit Test ing Communication Cardiovascular Malcolm Humphreys, Orders Medicine in Yefri Gomez [place] [address] [place] [phone] Social History Tobacco Use Types Packs/Day Years [...] 06/17/2020 relatives? How often do you attend pentecostal or jewish Never 05/04/2019 services? Do you belong to any clubs or organizations such No 06/17/2020 as pentecostal groups, unions, fraternal or athletic groups, or [...] sc Disorder documented as of this encounter Results DX Chest AP or PA and Lateral 2 Views (05/08/2019 11:03 AM PRODUCTION MAINTENANCE MECHANIC) Anatomical Region Laterality Modality Chest, Thoracic RST LOS, Thoracic ARZ LOS, Thoracic N/A Digital Radiography FLA LOS Specimen (Source) Anatomical Collection Method Collection Time Re ceived Time Location / / Volume Laterality 05/08/2019 1:14 PM PRODUCTION MAINTENANCE MECHANIC Impressions 05/08/2019 1:44 PM PRODUCTION MAINTENANCE MECHANIC No priors available for comparison. Nega tive chest. Narrative 05/08/2019 1:44 PM PRODUCTION MAINTENANCE MECHANIC EXAM: ??DX CHEST AP OR PA AND LATERAL 2 VIEWS Procedure Note Jacquie Martínez M.D. - 05/08/2019Format ting of this note might be different from the original. EXAM: DX CHEST AP OR PA AND LATERAL 2 EWS IMPRESSION: No priors available for comparison. Nega tive chest. Malcolm Velasquez M.D. IMG DIAGNOSTIC IMAGING PROCE DURES EXERCISE ECG (05/08/2019 10:35 AM PRODUCTION MAINTENANCE MECHANIC) Specimen (Source) Anatomical Collection Method Collection Time Re ceived Time Location / / Volume Laterality 05/08/2019 9:47 AM PRODUCTION MAINTENANCE MECHANIC Narrative MC CV MERGE - 05/08/2019 3:36 PM PRODUCTION MAINTENANCE MECHANIC This result has an attachment that is no t available. See PDF For Result Procedure Note Malcolm Velasquez M.D. - 05/08/2019Forma tting of this note might be different from the original. See PDF For Result Malcolm Velasquez M.D. CV STRESS PROCEDURES Performing Organization Address City/State/ZIP Code Phon e Number MC CV MERGE MC CV MERGE NA ECG 12 Lead (05/08/2019 9:40 AM PRODUCTION MAINTENANCE MECHANIC) P athologist Signature Ventricular Rate 78 BPM MUSE ECG/Min SC Interval 144 ms MUSE QRSD Interval 112 ms MUSE QT Interval 380 ms MUSE QTC Interval 433 ms MUSE P Spring 32 degrees MUSE R Spring 67 degrees MUSE T Wave [place] 28 degrees MUSE Specimen Anatomical Collection Method Collection Time Receive d Time (Source) Location / / Volume Laterality 05/08/2019 9:40 AM 9 9:47 PRODUCTION MAINTENANCE MECHANIC AM PRODUCTION MAINTENANCE MECHANIC Impressions MUSE - 05/08/2019 9:47 AM PRODUCTION MAINTENANCE MECHANIC Normal sinus rhythm Non-specific intra-ventricular conductio n delay No previous ECGs available Reviewed by KERI Hoff Narrative This result has an attachment that is no t available. Procedure Note Sly Johnson M.D. - 05/08/2019Format ting of this note might be different from the original. IMPRESSION: Normal sinus rhythm Non-specific intra-ventricular conductio n delay No previous ECGs available Reviewed by KERI Hoff Malcolm Velasquez M.D. ECG ORDERABLES Performing Organization Address City/State/ZIP Code Phon e Number MUSE MUSE NA Sodium (05/08/2019 9:23 AM PRODUCTION MAINTENANCE MECHANIC) athologist Signature Sodium, S 139 135 - 145 05/08/2019 DTL mmol/L 10:32 AM PRODUCTION MAINTENANCE MECHANIC Specimen Anatomical Collection Method Collection Time Receive d Time (Source) Location / / Volume Laterality Blood (Blood, 05/08/2019 9:23 AM 05/08/20 19 9:46 Venous) PRODUCTION MAINTENANCE MECHANIC AM PRODUCTION MAINTENANCE MECHANIC Malcolm Velasquez M.D. LAB BLOOD ADD-ON Performing Organization Address City/State/ZIP Code Phon e Number [facility] - [address] [place], [place] [address] [facility] [place] [address] [facility] [address] (ABNORMAL) DC-Heart Ceramide, Plasma (05/08/2019 9:23 AM PRODUCTION MAINTENANCE MECHANIC) athologist Signature DC-Heart 6 05/09/2019 DTL Ceramide Risk 3:26 PM PRODUCTION MAINTENANCE MECHANIC Score Comment: Moderate Risk. Relative cardiovascular r isk is 1.5x baseline risk. ----REFERENCE VALUE---- 0-2 Lower Risk 3-6 Moderate Risk 7-9 Increased Risk 10-12 Higher Risk Ceramide (16:0) 0.39 (H) 0.19 - 0.36 mcmol/L 05/09/2019 3:2 6 PM PRODUCTION MAINTENANCE MECHANIC DTL Ceramide (18:0) 0.16 (H) 0.05 - 0.14 mcmol/L 05/09/2019 3:2 6 PM PRODUCTION MAINTENANCE MECHANIC DTL Ceramide (24:1) 1.25 0.65 - 1.65 mcmol/L 05/09/2019 3:2 6 PM PRODUCTION MAINTENANCE MECHANIC DTL Ceramide (16:0)/(24:0) 0.07 <0.11 05/09/2019 3:26 P M PRODUCTION MAINTENANCE MECHANIC DTL ratio Ceramide (18:0)/(24:0) 0.03 <0.05 05/09/2019 3:26 P M PRODUCTION MAINTENANCE MECHANIC DTL ratio Ceramide (24:1)/(24:0) 0.22 <0.45 05/09/2019 3:26 P M PRODUCTION MAINTENANCE MECHANIC DTL ratio Comment: ----ADDITIONAL INFORMATION---- Liquid Chromatography-Tandem Mass Spectr ometry (LC-MS/MS) This test was developed and its performa nce characteristics determined by [facility] in a manner consistent with CLIA requirements. This test has not been cleared or approved by the [place] d and Drug Administration. Specimen Anatomical Collection Method Collection Time Receive d Time (Source) Location / / Volume Laterality Blood (Blood, 05/08/2019 9:23 AM 05/08/20 19 Venous) PRODUCTION MAINTENANCE MECHANIC 10:39 AM PRODUCTION MAINTENANCE MECHANIC Malcolm Velasquez M.D. LAB BLOOD NON ADD-ON Performing Organization Address City/State/ZIP Code Phon e Number [facility] - [address] [place], [place] [address] [facility] [place] [address] [facility] [address] CBC with Differential (05/08/2019 9:23 AM PRODUCTION MAINTENANCE MECHANIC) P athologist Signature Hemoglobin 14.3 13.2 - 05/08/2019 DTL 16.6 g/dL 10:14 AM PRODUCTION MAINTENANCE MECHANIC Hematocrit 40.7 38.3 - 05/08/2019 DTL 48.6 % 10:14 AM PRODUCTION MAINTENANCE MECHANIC Erythrocytes 4.60 4.35 - 05/08/2019 DTL 5.65 10:14 AM PRODUCTION MAINTENANCE MECHANIC x10(12)/L MCV 88.5 78.2 - 05/08/2019 DTL 97.9 fL 10:14 AM PRODUCTION MAINTENANCE MECHANIC RBC Distrib Width 12.2 11.8 - 05/08/2019 DTL 14.5 % 10:14 AM PRODUCTION MAINTENANCE MECHANIC Platelet Count 267 135 - 317 05/08/2019 DTL x10(9)/L 10:14 AM PRODUCTION MAINTENANCE MECHANIC Leukocytes 4.9 3.4 - 9.6 05/08/2019 DTL x10(9)/L 10:14 AM PRODUCTION MAINTENANCE MECHANIC Neutrophils 2.64 1.56 - 05/08/2019 DTL 6.45 10:14 AM PRODUCTION MAINTENANCE MECHANIC x10(9)/L Lymphocytes 1.62 0.95 - 05/08/2019 DTL 3.07 10:14 AM PRODUCTION MAINTENANCE MECHANIC x10(9)/L Monocytes 0.38 0.26 - 05/08/2019 DTL 0.81 10:14 AM PRODUCTION MAINTENANCE MECHANIC x10(9)/L Eosinophils 0.25 0.03 - 05/08/2019 DTL 0.48 10:14 AM PRODUCTION MAINTENANCE MECHANIC x10(9)/L Basophils 0.05 0.01 - 05/08/2019 DTL 0.08 10:14 AM PRODUCTION MAINTENANCE MECHANIC x10(9)/L Specimen Anatomical Collection Method Collection Time Receive d Time (Source) Location / / Volume Laterality Blood (Blood, 05/08/2019 9:23 AM 05/08/20 19 9:45 Venous) PRODUCTION MAINTENANCE MECHANIC AM PRODUCTION MAINTENANCE MECHANIC Malcolm Velasquez M.D. LAB BLOOD ADD-ON Performing Organization Address City/State/ZIP Code Phon e Number [facility] - [address] [place], [place] [address] [facility] [place] [address] [facility] [address] Potassium (05/08/2019 9:23 AM PRODUCTION MAINTENANCE MECHANIC) P athologist Signature Potassium, S 4.6 3.6 - 5.2 05/08/2019 DTL mmol/L 10:32 AM PRODUCTION MAINTENANCE MECHANIC Specimen Anatomical Collection Method Collection Time Receive d Time (Source) Location / / Volume Laterality Blood (Blood, 05/08/2019 9:23 AM 05/08/20 19 9:46 Venous) PRODUCTION MAINTENANCE MECHANIC AM PRODUCTION MAINTENANCE MECHANIC Malcolm Velasquez M.D. LAB BLOOD ADD-ON Performing Organization Address City/State/ZIP Code Phon e Number [facility] - [address] Thyroid Function [place] (05/08/2019 9:23 AM PRODUCTION MAINTENANCE MECHANIC) athologist Signature TSH, Sensitive 0.9 0.3 - 4.2 05/08/2019 DTL mIU/L 10:32 AM PRODUCTION MAINTENANCE MECHANIC Specimen Anatomical Collection Method Collection Time Receive d Time (Source) Location / / Volume Laterality Blood (Blood, 05/08/2019 9:23 AM 05/08/20 19 9:46 Venous) PRODUCTION MAINTENANCE MECHANIC AM PRODUCTION MAINTENANCE MECHANIC Malcolm Velasquez M.D. LAB BLOOD ADD-ON Performing Organization Address City/[facility] Phon e Number [facility] - [id number] [place] [address] Creatinine with Estimated GFR (05/08/2019 9:23 AM PRODUCTION MAINTENANCE MECHANIC) athologist Signature Creatinine 0.90 0.74 - 05/08/2019 DTL 1.35 mg/dL 10:32 AM PRODUCTION MAINTENANCE MECHANIC eGFR-Non >90 >=60 05/08/2019 DTL Black/ mL/min/BSA 10:33 AM PRODUCTION MAINTENANCE MECHANIC Portuguese Comment: ----ADDITIONAL INFORMATION---- Estimated GFR calculated using the 2009 CKD_EPI creatinine equation. eGFR-Black/ >90 >=60 mL/min/BSA 2018 10:33 AM PRODUCTION MAINTENANCE MECHANIC DTL Comment: ----ADDITIONAL INFORMATION---- Estimated GFR calculated using the 2009 CKD_EPI creatinine equation. Specimen Anatomical Collection Method Collection Time Receive d Time (Source) Location / / Volume Laterality Blood (Blood, 05/08/2019 9:23 AM 05/08/20 19 9:46 Venous) PRODUCTION MAINTENANCE MECHANIC AM PRODUCTION MAINTENANCE MECHANIC Malcolm Velasquez M.D. LAB BLOOD ADD-ON Performing Organization Address City/[facility]/ZIP [facility] Phon e Number [facility] [id number] [place] [address] (ABNORMAL) ALT (Alanine Aminotransferase) (05/08/2019 9:23 AM PRODUCTION MAINTENANCE MECHANIC) [facility] Method Time Signature Alanine 57 (H) 7 - 55 05/08/2019 DTL Aminotransferase U/L 10:32 AM PRODUCTION MAINTENANCE MECHANIC (ALT), S Specimen Anatomical Collection Method Collection Time Receive d Time (Source) Location / / Volume Laterality Blood (Blood, 05/08/2019 9:23 AM 05/08/20 19 9:46 Venous) PRODUCTION MAINTENANCE MECHANIC AM PRODUCTION MAINTENANCE MECHANIC Malcolm Velasquez M.D. LAB BLOOD ADD-ON Performing Organization Address City/State/ZIP Code Phon e Number [facility] - [address] [place] [address] [facility] [place] [address] [facility] [address] AST (Aspartate Aminotransferase) (05/08/2019 9:23 AM PRODUCTION MAINTENANCE MECHANIC) [facility] Method Time Signature Aspartate 28 8 - 48 05/08/2019 DTL Aminotransferase U/L 10:32 AM PRODUCTION MAINTENANCE MECHANIC (AST), S Specimen Anatomical Collection Method Collection Time Receive d Time (Source) Location / / Volume Laterality Blood (Blood, 05/08/2019 9:23 AM 05/08/20 19 9:46 Venous) PRODUCTION MAINTENANCE MECHANIC AM PRODUCTION MAINTENANCE MECHANIC Malcolm Velasquez M.D. LAB BLOOD ADD-ON Performing Organization Address City/State/ZIP Code Phon e Number [facility] - [address] [place] [address] [facility] [place] [address] [facility] [address] (ABNORMAL) Glucose, Fasting (05/08/2019 9:23 AM PRODUCTION MAINTENANCE MECHANIC) P athologist Signature Glucose, P 129 (H) 70 - 100 05/08/2019 DTL mg/dL 10:29 AM PRODUCTION MAINTENANCE MECHANIC Last Intake 14 hr 05/08/2019 DTL 9:46 AM PRODUCTION MAINTENANCE MECHANIC Specimen Anatomical Collection Method Collection Time Receive d Time (Source) Location / / Volume Laterality Blood (Blood, 05/08/2019 9:23 AM 05/08/20 19 9:46 Venous) PRODUCTION MAINTENANCE MECHANIC AM PRODUCTION MAINTENANCE MECHANIC Malcolm Velasquez M.D. LAB BLOOD NON ADD-ON Performing Organization Address City/State/ZIP Code Phon e Number [facility] - [address] [place] [address] [facility] [place] [address] [facility] [address] (ABNORMAL) Lipid Panel (05/08/2019 9:23 AM PRODUCTION MAINTENANCE MECHANIC) P athologist Signature Cholesterol, 221 (H) mg/dL 05/08/2019 DTL Total 10:32 AM PRODUCTION MAINTENANCE MECHANIC Comment: ----REFERENCE VALUE---- Desirable: < 200 Borderline high: 200 - 239 High: > or = 240 Triglycerides 448 (H) mg/dL 05/08/2019 10:32 AM PRODUCTION MAINTENANCE MECHANIC DT L Comment: ----REFERENCE VALUE---- Normal: <150 Borderline high: 150-199 High: 200-499 Very high: > or =500 Cholesterol, HDL, S 36 (L) >=40 mg/dL 05/08/2019 10:32 AM PRODUCTION MAINTENANCE MECHANIC DTL Calculated LDL CANCELED mg/dL 05/08/2019 10:32 AM PRODUCTION MAINTENANCE MECHANIC D TL Comment: Triglyceride >400 mg/dL. Calculated LDL cholesterol is not valid. Non-HDL cholesterol may be used f or cardiovascular disease risk assessment when triglycerid es are >400 mg/dL. Result canceled by the ancillary. Cholesterol, Non-HDL, Calculated 185 (H) mg/dL 019 10:32 AM PRODUCTION MAINTENANCE MECHANIC DTL Comment: ----REFERENCE VALUE---- Desirable: <130 Above Desirable: 130-159 Borderline high: 160-189 High: 190-219 Very high: > or =220 Specimen Anatomical Collection Method Collection Time Receive d Time (Source) Location / / Volume Laterality Blood (Blood, 05/08/2019 9:23 AM 05/08/20 19 9:46 Venous) PRODUCTION MAINTENANCE MECHANIC AM PRODUCTION MAINTENANCE MECHANIC Malcolm Velasquez M.D. LAB BLOOD ADD-ON Performing Organization Address City/State/ZIP Code Phon e Number [facility] - [address] [place], [place] [address] [facility] [place] [address] [facility] [address] documented in this encounter Visit Diagnoses Diagnosis Hyperlipidemia - Primary Hypertriglyceridemia Hyperlipidemia Hypertriglyceridemia Hyperlipidemia Hypertriglyceridemia documented in this encounter
--- OUTSIDE RECORDS SUMMARY | 2022-01-26 07:35 | XMS_ITS | Encounter Summary ---
:1980 Author Organization [facility] Address [address] [place] [address] Care Team Providers Name Role Phone Unavailable Primary Care Provider Unavailable Encounter Details Date Type Department Care Team Description 02/09/2019 [facility] Yefri Espinoza (Primary Dx) CLINICS [address] [place] [address] [place] [address] [phone] Social History Tobacco Use Types Packs/Day Years [...] 06/17/2020 relatives? How often do you attend jewish or nondenominational Never 05/04/2019 services? Do you belong to any clubs or organizations such No 06/17/2020 as jewish groups, unions, fraternal or athletic groups, or [...]
--- OUTSIDE RECORDS SUMMARY | 2022-01-26 07:35 | XMS_ITS | Encounter Summary ---
:1980 Author Organization [facility] Address [address] [place] [address] Care Team Providers Name Role Phone Unavailable Primary Care Provider Unavailable Reason for Visit Reason Comments Communication Encounter Details Date Type Department Care Team Description 03/19/2020 Clinical Communication Department of Arlet Marie ommunication Neurologic Surgery in [place], [place], [facility] [place], [place] [address] [facility] [address] [place] [phone] Social History Tobacco Use Types Packs/Day Years [...] 06/17/2020 relatives? How often do you attend taoist or orthodox Never 05/04/2019 services? Do you belong to any clubs or organizations such No 06/17/2020 as taoist groups, unions, fraternal or athletic groups, or [...]
--- OUTSIDE RECORDS SUMMARY | 2022-01-26 07:35 | XMS_ITS | Encounter Summary ---
:1980 Author Organization [facility] Address [address] [place] [address] Care Team Providers Name Role Phone Unavailable Primary Care Provider Unavailable Reason for Referral Outpatient (Routine) - Closed Specialty Diagnoses / Procedures Referred By Contact Refer red To Contact Diagnoses Hyperlipidemia Hypertriglyceridemia Malcolm Velasquez M.D. [facility] Procedures Exercise ECG [address] [place] [address] Referral ID Status Reason Start Date Expiration Date Visits Requ ested Visits Authorized [id number] Closed 04/04/2019 04/03/2020 1 1 OMER PROFESSIONAL Reason for Visit Outpatient (Routine) - Closed Specialty Diagnoses / Procedures Referred By Contact Refer red To Contact Diagnoses Hyperlipidemia Hypertriglyceridemia Malcolm Velasquez M.D. [facility] Procedures Exercise ECG [address] [place] [address] Referral ID Status Reason Start Date Expiration Date Visits Requ ested Visits Authorized [id number] Closed 04/04/2019 04/03/2020 1 1 Encounter Details Date Type Department Care Team Description 05/08/2019 Hospital Department of Malcolm Velasquez Hyperlipidem ia; Encounter Cardiovascular Yefri Humphreys Hypertriglyceridemia Diseases in [place], [address] [place], [place] [address] [facility] [address] [place], [place] [phone] (Work) [phone] Social History Tobacco Use Types Packs/Day Years [...] 06/17/2020 relatives? How often do you attend yazdanism or scientology Never 05/04/2019 services? Do you belong to any clubs or organizations such No 06/17/2020 as yazdanism groups, unions, fraternal or athletic groups, or [...] encounter Procedures Procedure Name Priority Date/Time Associated Diagnosis Comme nts EXERCISE ECG Routine 05/08/2019 10:35 AM Hyperlipidem ia Results for this CUSTOMER PROFESSIONAL Hypertriglyceridemia procedu re are in the results section . documented in this encounter Results EXERCISE ECG (05/08/2019 10:35 AM CUSTOMER PROFESSIONAL) Specimen (Source) Anatomical Collection Method Collection Time Re ceived Time Location / / Volume Laterality 05/08/2019 9:47 AM CUSTOMER PROFESSIONAL Narrative [facility] CV MERGE - 05/08/2019 3:36 PM CUSTOMER PROFESSIONAL This result has an attachment that is no t available. See PDF For Result Procedure Note Malcolm Velasquez M.D. - 05/08/2019Forma tting of this note might be different from the original. See PDF For Result Malcolm Velasquez M.D. CV STRESS PROCEDURES Performing Organization Address City/State/ZIP Code Phon e Number MC CV MERGE MC CV MERGE NA documented in this encounter Visit Diagnoses Diagnosis Hyperlipidemia Hypertriglyceridemia documented in this encounter
--- OUTSIDE RECORDS SUMMARY | 2022-01-26 07:35 | XMS_ITS | Encounter Summary ---
:1980 Author Organization [facility] Address [address] [place] [address] Care Team Providers Name Role Phone Unavailable Primary Care Provider Unavailable Reason for Visit Reason Comments Back Pain Encounter Details Date Type Department Care Team Description 02/28/2018 Documentation Department of Neurologic Holli Belle, Back Pain Surgery in [facility].[place], .[place] [address] [facility] [address] [place] [phone] (Wo rk) Social History Tobacco Use Types [...] 06/17/2020 relatives? How often do you attend baptist or druze Never 05/04/2019 services? Do you belong to any clubs or organizations such No 06/17/2020 as baptist groups, unions, fraternal or athletic groups, or [...] documented as of this encounter Progress Notes Holli Belle P.A.-C., M.S. - 02/28/2018 11:00 AM CDT The patient called in today, he is three months status post hemilaminectomy and diskectomy right L4-5. He was doing well postoperatively and so doctor Luis at six weeks. The patient has been going tophysical therapy to help with postoperative mobilization and strengthening. For the past week he hashad some progressive worsening of right lower extremity pain to the point where it feels similar to when he had prior to surgery. The differences that the pain does not hurt his back it is persistent colicky pain in his right gluteal and calf. He does not have any right lower extremity weakness. He uses Tylenol as needed. He states that walking exacerbates the pain and sitting and lying down helps. I discussed with patient that he can initiate using ibuprofen for pain control. I also offered a Medrol Dosepak which he declined at this time. He will hold of on physical therapy to see if this helps with this pain. Due to the worsening nature of his right lower extremity pain, similar to when he had preoperatively, we will order an MRI of the lumbar spine and future follow-up with doctor Smith. Should the patient's pain improved in the interim, he will cancel this appointment. documented in this encounter Plan of Treatment Scheduled Procedures Name Priority Associated Diagnoses Date/Time DECOMPRESSION SPINE - POSTERIOR LUMBAR Lumbar Di sc Disorder documented as of this encounter Visit Diagnoses Not on filedocumented in this encounter
--- OUTSIDE RECORDS SUMMARY | 2022-01-26 07:35 | XMS_ITS | Encounter Summary ---
:1980 Author Organization [facility] Address [address] [place] [address] Care Team Providers Name Role Phone Unavailable Primary Care Provider Unavailable Reason for Visit Appointment Request (Routine) - Closed Specialty Diagnoses / Procedures Referred By Contact Refer red To Contact Cardiovascular Disease Referral ID Status Reason Start Date Expiration Date Visits Requ ested Visits Authorized [id number] Closed 04/04/2019 04/03/2020 1 1 Encounter Details Date Type Department Care Team Description 05/08/2019 Comprehensive Visit Department of Vishal Velasquez Fasting Glucose (Primary Dx); Cardiovascular Malcolm Humphreys, Family Histor y Coronary Artery Disease; Medicine in [place], [place] Hyperlipidemia; [place] [address] [facility] [[email or web address]] Hypertension Essential Primary [address] [place] [phone] Social History Tobacco Use Types Packs/Day Years [...] How often do you attend evangelical or bahai Never 05/04/2019 services? Do you [...] Sign Reading Time Taken Comments Blood Pressure 127/83 05/08/2019 12:51 PM LEAD MANUFACTURING TECHNICIAN single Pulse 106 05/08/2019 12:51 PM LEAD MANUFACTURING TECHNICIAN Temperature - - Respiratory Rate - - Oxygen Saturation - - Inhaled Oxygen Concentration - - Weight 122 kg (269 lb 6.4 oz) 05/08/2019 12:51 PM LEAD MANUFACTURING TECHNICIAN Height 195.2 cm (6' 4.85) 05/08/2019 12:51 PM LEAD MANUFACTURING TECHNICIAN Body Mass Index 32.07 05/08/2019 12:51 PM LEAD MANUFACTURING TECHNICIAN documented in this encounter Progress Notes Olivia Severino M.D., M.P.H. - 05/08/2019 1:00 PM CST SUBJECTIVE Referring Provider: Dr. Cortez Mr. Tejas Parisi is a very pleasant 38 y.o. male who is seen today at [facility] for hypertriglyceridemia. Patient's past medical history includes TOM, HTN, HLD, Impaired fasting glucose, and lumbar disc disorder. Cardiovascular risk profile: DM/Impaired fasting glucose- yes, most recently was 129, no previous values to trend HTN- yes, currently managed with amlodipine 5 mg daily HLD- yes, he reports his triglycerides have been as high as 1800. TOM- yes, wears CPAP at night Family history- Father's side has significant cardiac history. Father had double bypass and valve replacement (unknown valve) in his 50s. Elevated TGs, HTN. PGF of LA in his 50s. PGM had a stroke and at age 87. Paternal uncle had a stroke in his 70s. Paternal aunt had a stroke at an unknown age. Social history- Low risk, does not use tobacco, drinks 2-3 drinks every 2-3 weeks, uses no recreational drugs Diet- eats a carbohydrate heavy diet, limited fruits and vegetables Exercise- Does Pilates once per week, and uses the treadmill once per week. Obesity- yes, BMI 32 HISTORY OF PRESENT ILLNESS Mr. Parisi is a 38 year old man who has consistently elevated triglycerides and significant family history of cardiac events. He feels well today. Denies chest pain, dyspnea, syncope, myalgias. He does report that he felt his heart skip a beat or two approximately two and a half weeks ago. This self resolved, and he has not had any symptoms since. He did not have chest pain, or feel lightheaded at the time. Regarding his diet, he is a self reported carb lover. His breakfast varies, and may include eggs, sausage, cereal, or yogurt. Lunch is usually a breaded chicken with rice, sandwich, or quesadilla. Dinner has recently consisted of instant pot recipes such as chicken and brown rice. He likes to snack on popcorn or veggie straws. Sometimes he will eat raw carrots or broccoli, or an apple. He does not consume many sweets. For exercise, he has recently gotten back into mountain biking, but is less able to do this over thewinter. He has a history of back problems, so is working on gaining core strength before returning to any sort of weight routine. He does pilates and uses a treadmill each once per week. He recently joined a fitness club, and is interested in increasing his physical activity. Regarding his family history, his father's side of the family has significant cardiac factors. His father had a double bypass, and a valve replacement (unsure which valve) in his 50s. He also has elevated triglycerides and HTN. Paternal grandfather had an LA in his 50s and . Paternal grandmother had a stroke at 87 and . Paternal uncle had a stroke in his 70s. Paternal aunt had a stroke at unknown age. His mother has been well, and was adopted, so family history is unknown on the maternal side. He uses NSAIDs only approximately once per month. He has never used tobacco products. Every 2-3 weeks he has 2-3 drinks at a time. No other alcohol use. No recreational drug use.#1 Family History Coronary Artery Disease #2 Impaired Fasting Glucose Patient's work up on this visit is significant for significantly elevated triglycerides. Stress testshowed no ischemia, however FAC was low at </= 70%. CXR was unremarkable. REVIEW OF SYSTEMS A comprehensive review of systems was completed; pertinent abnormalities are included in the Historyof Present Illness. Otherwise all systems negative. PAST MEDICAL, SURGICAL, SOCIAL, AND FAMILY HISTORY The following portions of the patient's history were reviewed and updated as appropriate: allergies,current medications, family history, medical history, social history, surgical history and problem list. OBJECTIVE BP 127/83 (BP Location: Left arm, Patient Position: Sitting, Cuff Size: Large) Comment: single Pulse 106 Ht 195.2 cm Wt 122 kg BMI 32.07 kg/m?? PHYSICAL EXAMINATION General: Oriented, alert. Well groomed. Psychiatric: Normal mood and affect. Oriented to person, place, and time. Eyes: No periorbital xanthelasma. Clear sclerae. ENT: No oral mucosal cyanosis or pallor. Heart: Regular rate and rhythm. No murmurs. Vessels: No bruits. Lungs: Normal to auscultation and percussion. Musculoskeletal: No clubbing or cyanosis of the digits. Extremities: No edema Skin: No stasis dermatitis or ulceration of the lower extremities. DIAGNOSTICS I have personally reviewed the patient's current laboratory, imaging, and other diagnostic studies and discussed these in detail with the patient. # Family History Coronary Artery Disease # Hyperlipidemia # Hypertriglyceridemia Has significant family history for increased cardiac risk factors as discussed above. We discussed that his hypertriglyceridemia puts him at increased risk for pancreatitis and cardiac events. He is already on fenofibrate, which is an appropriate choice for his elevated triglycerides. Also discussed restarting his fish oil supplement. Would aim for 2,000-4,000 mg daily. - Goal triglyceride range is less than 250, ideal would be less than 150 - Discussed the importance of lifestyle changes. Following a mediterranean diet, increasing physicalactivity to 45 min 6 times weekly would have significant impact on lowering his triglycerides - Plan to recheck lipids in 6 weeks time as he makes the above changes - When TGs lower, can calculated LDL. May likely have to initiate a statin. He reports he did not tolerate simvastatin in the past, and simvastatin has high side effect profile, so would consider different statin based on ASCVD risk. - To better assess current risk, would consider coronary calcium CT at age 39. Information was provided to Mr. Parisi about where he can get this scan. - Would avoid diuretics and beta blockers in the future as these can increase triglycerides - Given family history, will check lipoprotein a # Impaired Fasting Glucose He has multiple impaired fasting glucose values. Currently taking a low dose of metformin. Could consider increasing his metformin as this will help with his HLD as well as impaired fasting glucose. Will also add on A1c today. Most recent A1c was 5.4 a couple months ago at his home clinic. # Hypertension Recommended that he regularly check his blood pressures at home. His goal range is less than 130/80.He is currently on amlodipine 5 mg daily. He reports he has been on lisinopril in the past, but he has a habitual cough, so there was concern that the cough was caused by lisinopril. However, even after stopping lisinopril, his cough has persisted, and he reports it has been present since his childhood. Given his impaired fasting glucose, would consider switching amlodipine back to TONEY/ARB therapy. We recommended follow up in 6 weeks time with repeat lipid panel. ASCVD risk was not calculated as LDL was not able to be measured in the context of elevated triglycerides. [place] risk of LA in the next 10 years is 2.6%. Detailed diet and exercise counseling was provided. Case was discussed with Dr. Velasquez It was a great pleasure seeing Mr. Tejas Parisi today. Olivia Severino MD, MPH Resident PGY1 Pager [phone] Answers for HPI/ROS submitted by the patient on 05/04/2019 No general issues: Yes No eye issues: Yes Difficulty hearing: Yes Sinus congestion: Yes Rapid or fluttering heart beats: Yes No respiratory issues: Yes No GI issues: Yes Muscle pain/stiffness: Yes Pain or stiffness in the joints: Yes Back pain/stiffness: Yes No skin issues: Yes No neurologic issues: Yes No mental health issues: Yes No blood/lymph issues: Yes No urinary/reproductive issues: Yes MANUFACTURING TECHNICIAN documented in this encounter Consult Notes Malcolm Velasquez M.D. - 05/08/2019 1:00 PM CST REFERRAL SOURCE Alexis Cortez ?? CHIEF COMPLAINT / REASON FOR VISIT Hypertriglyceridemia ?? HISTORY OF PRESENT ILLNESS Assisted by: Olivia Severino I have reviewed and confirmed the evaluation of the patient by . I agree with her documentedassessment and plan. Mr. Parisi is a 38-year-old gentleman referred to us for the following: #1 Hypertriglyceridemia History of hypertriglyceridemia with levels as high as 1800 in the past. Has been on fenofibrate thepast 10 years. Triglycerides remain elevated, in the 400- 500 range. Has room for improvement in dietary and physical activity habits. Has central obesity. Has tried simvastatin and ni. acin in the pastbut stopped because of ???burning sensation???. #2 Impaired fasting glucose On metformin 500 mg daily. Room for improvement in dietary habits, exercise habits, and waistline reduction efforts. Last hemoglobin A1c was 5.4% in February through primary care provider's office. #3 Hypertension On amlodipine therapy. Does not check blood pressure on a regular basis but plans to start doing so.Was previously on lisinopril but this was stopped because of cough. His cough did not improve after stopping lisinopril however. #4 Central obesity #5 Family history of early-onset coronary artery disease Father underwent CABG surgery and had valve replacement in his 50s. He also had high triglycerides. His paternal grandfather had a myocardial infarction and in his 50s. The following portions of the patient's history were reviewed and updated as appropriate: allergies,current medications, family history, medical history, social history, surgical history, problem list, labs, diagnostics tests. I also reviewed pertinent clinical notes in the electronic health record. REVIEW OF SYSTEMS A comprehensive review of systems was completed; pertinent abnormalities are included in the Historyof Present Illness. LIFESTYLE ASSESSMENT Dietary habits: adherence to Mediterranean dietary pattern is moderate Physical activity: adherence to physical activity recommendations is moderate Tobacco exposure: None Alcohol intake: 2-3 drinks, every 2-3 weeks. MEDICATIONS Current Medications: ??? amLODIPine (NORVASC) 5 mg tablet, Take 5 mg by mouth daily. ??? fenofibrate (LOFIBRA) 160 mg tablet, Take 160 mg by mouth every morning. ??? ibuprofen (ADVIL,MOTRIN) 200 mg capsule, Take 600 mg by mouth every 8 (eight) hours as needed for pain (as needed). ??? metFORMIN XR (GLUCOPHAGE-XR) 500 mg 24 hr tablet, Take 1 tablet by mouth daily. VITALS Blood Pressure: 127/83 Height: 195.2 cm Weight: 122 kg BMI (Calculated): 32.1 kg/m?? PHYSICAL EXAMINATION General: No acute distress, alert, responsive. Gait: Normal. Psychiatric: Normal mood and affect. Oriented to person, place, and time. Eyes: No xanthelasma or conjunctivitis. Vessels: No carotid bruits. Normal pedal pulses. Heart: Regular rate and rhythm. Normal first and second heart sounds. No murmurs, gallops, or rubs. Jugular venous pressure and pulsation normal. Lungs: Normal respiratory effort and air movement. Clear to auscultation. Abdomen: No hepatosplenomegaly. No abdominal tenderness, no masses. Extremities: No clubbing or cyanosis. No lower extremity edema. Skin: No stasis dermatitis or ulceration. Atherosclerotic Cardiovascular Disease Risk The patient's 10-year risk of a cardiovascular event is estimated to be: The ASCVD Risk score (Van Hornyevgeniy STARR Jr., et al., 2013) failed to calculate for the following reasons: The 2013 ASCVD risk score is only valid for ages 40 to 79 DIAGNOSTIC REVIEW All labs and diagnostic studies were reviewed. Exercise ECG is negative for ischemia but exercise capacity is about 70% of predicted. Low heart rate recovery also noted. Elevated baseline blood pressure, with normal blood pressure response during exercise. Hemoglobin A1c is 5.3%. ALT is mildly elevated at 57, with normal less than 55. ?? ASSESSMENT / PLAN #1 Family History Coronary Artery Disease #2 Impaired Fasting Glucose #3 Hyperlipidemia #4 Hypertension Essential Primary Mr. Parisi has elevated risk for pancreatitis and for cardiovascular disease. He has significant dyslipidemia, impaired fasting glucose, hypertension, and family history of coronary artery disease. He has moderate central obesity. There's room for improvement in dietary and physical activity habits. To help further assess and manage cardiovascular risk, we recommend the followin. Work on improvements in dietary and physical activity habits that we discussed. 2. Work on waistline reduction to help with efforts to improve triglyceride, blood pressure, and blood sugar control. 3. Add fish oil, 1165-9351 mg of omega-3 fatty acid daily. 4. Recheck lipids and liver enzymes in 6 weeks through primary care provider's office. If triglycerides are still above 250, consider starting slow-release niacin 1000 mg daily (with food, in the evening, and with aspirin 81 mg daily, 1 hour prior to the niacin). 5. Once triglycerides are under control, at least below 250, but ideally less than 150, initiate statin therapy to help achieve an LDL that is ideally less than 70, in view of his impaired fasting glucose and elevated cardiovascular risk. 6. We'll check lipoprotein a level today. Could also check a coronary artery calcification scan in the [facility], to help with decision making regarding lipid-lowering drug therapy. If tests are abnormal, would aim toward an LDL less than 70. If tests are normal, would work toward an LDL less than 100 (in view of his elevated cardiovascular risk). 7. Check blood pressure at home 2 or 3 days a week, in the morning and evening, and track weekly average. If consistently above 130/80, patient should follow-up with primary care provider to discuss next steps. We had a discussion, questions were answered. PATIENT EDUCATION Ready to learn, no apparent learning barriers were identified; learning preferences include listening. Explained diagnosis and treatment plan; patient expressed understanding of the content. Malcolm Velasquez M.D. 05/08/2019 MANUFACTURING TECHNICIAN documented in this encounter Plan of Treatment Scheduled Procedures Name Priority Associated Diagnoses Date/Time DECOMPRESSION SPINE - POSTERIOR LUMBAR Lumbar Di sc Disorder documented as of this encounter Procedures Procedure Name Priority Date/Time Associated Comments Diagnosis LIPOPROTEIN (A), S/P Routine 05/08/2019 9:20 AM Family History Results for this LEAD MANUFACTURING TECHNICIAN Coronary Artery procedure ar e in Disease the results section. HEMOGLOBIN A1C, B Routine 05/08/2019 9:20 AM Resu lts for this LEAD MANUFACTURING TECHNICIAN procedure are i n the results section. documented in this encounter Results Hemoglobin A1c (05/08/2019 9:20 AM LEAD MANUFACTURING TECHNICIAN) athologist Signature Hemoglobin A1c, 5.3 4.0 - 5.6 05/08/2019 DTL B % 2:34 PM LEAD MANUFACTURING TECHNICIAN Specimen Anatomical Collection Method Collection Time Receive d Time (Source) Location / / Volume Laterality Blood 05/08/2019 9:20 AM 9 2:22 LEAD MANUFACTURING TECHNICIAN PM LEAD MANUFACTURING TECHNICIAN Malcolm Velasquez M.D. LAB BLOOD ADD-ON Performing Organization Address City/State/ZIP Code Phon e Number [facility] - [address] [place], [place] [address] [facility] [place] [address] [facility] [address] Lipoprotein (a) (05/08/2019 9:20 AM LEAD MANUFACTURING TECHNICIAN) athologist Signature Lipoprotein(a), <6 <=30 mg/dL 05/08/2019 DTL S 2:57 PM LEAD MANUFACTURING TECHNICIAN Specimen Anatomical Collection Method Collection Time Receive d Time (Source) Location / / Volume Laterality Blood (Blood, 05/08/2019 9:20 AM 05/08/20 19 2:40 Venous) LEAD MANUFACTURING TECHNICIAN PM LEAD MANUFACTURING TECHNICIAN Malcolm Velasquez M.D. LAB BLOOD ADD-ON Performing Organization Address City/State/[facility] Code Phon e Number [facility] - [address] [place], [place] [address] [facility] [place] [address] [facility] [address] documented in this encounter Visit Diagnoses Diagnosis Impaired Fasting Glucose - Primary Family History Coronary Artery Disease Hyperlipidemia Hypertension Essential Primary documented in this encounter
--- OUTSIDE RECORDS SUMMARY | 2022-01-26 07:35 | XMS_ITS | Encounter Summary ---
:1980 Author Organization [facility] Address [address] [place] [address] Care Team Providers Name Role Phone Unavailable Primary Care Provider Unavailable Reason for Referral Outpatient (Routine) - Closed Specialty Diagnoses / Procedures Referred By Contact Refer red To Contact Neurological Surgery Holli Belle P.A.-C., M.S. [address] [place] [address] Referral ID Status Reason Start Date Expiration Date Visits Requ ested Visits Authorized [id number] Closed 11/30/2017 11/30/2018 1 1 Encounter Details Date Type Department Care Team Description 11/30/2017 Orders Only Department of Neurologic Holli Belle, Surgery in [place], [place], M .S. [place] [address] [facility] [address] [place] [phone] (Wo rk) Social History Tobacco Use Types [...] 06/17/2020 relatives? How often do you attend protestant or rastafari Never 05/04/2019 services? Do you belong to any clubs or organizations such No 06/17/2020 as protestant groups, unions, fraternal or athletic groups, or [...] minutes do you engage in exercise at is 60 min 06/17/2020 level? Stress Answer [...] Surgery office visit 018 (clinic) (Approximate), Expires: 11/30/2020 documented as of this encounter Visit Diagnoses Not on filedocumented in this encounter
--- OUTSIDE RECORDS SUMMARY | 2022-01-26 07:35 | XMS_ITS | Encounter Summary ---
:1980 Author Organization [facility] Address [address] [place] [address] Care Team Providers Name Role Phone Unavailable Primary Care Provider Unavailable Encounter Details Date Type Department Care Team Description 04/03/2018 Documentation Department of Neurologic Evaristo Smith M.D. Surgery in [place], [place] [address] [place] [phone] Social History Tobacco Use Types Packs/Day Years [...] 06/17/2020 relatives? How often do you attend buddhism or baptist Never 05/04/2019 services? Do you belong to any clubs or organizations such No 06/17/2020 as buddhism groups, unions, fraternal or athletic groups, or [...] encounter Progress Notes Evaristo Smith M.D. - 04/03/2018 9:35 PM CST Mr. Parisi has had a large disk reherniation causing his right leg pain to reoccur. Given the size ofthis herniation as well as it occurred during physical therapy, I am worried that continuing with non-operative management would only make it worse and that it is such a large herniation, it will not diminish in size. Given this, a repeat exploration of the right L4-5 disk space has been recommended and scheduled. E CUTTER AND SWAGER documented in this encounter Plan of Treatment Scheduled Procedures Name Priority Associated Diagnoses Date/Time DECOMPRESSION SPINE - POSTERIOR LUMBAR Lumbar Di sc Disorder documented as of this encounter Visit Diagnoses Not on filedocumented in this encounter
--- OUTSIDE RECORDS SUMMARY | 2022-01-26 07:35 | XMS_ITS | Clinical Summary ---
:1980 Author Organization [facility] Address [address] [place] [address] Care Team Providers Name Role Phone Unavailable Primary Care Provider Unavailable Source Comments Patient records contain information from all sites at [facility]. For routine questions regarding patient records, call [phone] during business hours, M-F 8:00 AM - 5:00 PM Central Time. Record requests for emergency care only can be directed to [phone] at any time.[facility] Allergies Active Allergy Reactions Severity Noted Date Comments Pollen Extracts Cough 03/21/2020 Congestion Medications Medication Sig Dispensed Refills Start Date End Date Status fenofibrate (LOFIBRA) Take 160 mg by 0 10/02/2017 Active 160 mg tablet mouth every morning. amLODIPine (NORVASC) 5 Take 5 mg by 3 03/24/2019 Active mg tablet mouth daily. metFORMIN XR Take 1 tablet by 0 02/09/2019 Active (GLUCOPHAGE-XR) 500 mg mouth daily. 24 hr tablet docosahexaenoic acid/epa Take 3 capsules 0 Active (FISH OIL ORAL) by mouth daily. Take three 1,280 mg capsules daily. Active Problems Problem Noted Date Impaired Fasting Glucose 05/08/2019 Family History Coronary Artery Disease 05/08/2019 Lumbar Disc Disorder 11/23/2017 Overview: Added automatically from request for sean oswaldy [id number] Hyperlipidemia 11/19/2017 Obstructive Sleep Apnea Adult Hypertension NOS Family History Medical History Relation Name Comments Coronary artery disease Father Saúl Parisi double b ypass due to defect Diabetes Father Saúl Parisi Heart disease Father Saúl Parisi Hyperlipidemia Father Saúl Parisi Hypertension Father Saúl Parisi Stroke Father's Brother Everardo Parisi Stroke Father's Sister Krista Burns Other Mother Blanca Parisi Seizure disorder due to basil ganglia on corpus colosum Seizures Mother Blanca Parisi Coronary artery disease Paternal Grandfather Joe Parisi Hea rt attack Heart disease Paternal Grandfather Joe Parisi Stroke Paternal Grandmother Kailee Parisi Relation Name Status Comments Father Saúl Parisi Father's Brother Everardo Parisi Father's Sister Krista Burns Mother Blanca Parisi Paternal Grandfather Joe Parisi Paternal Grandmother Kailee Parisi Social History Tobacco Use Types Packs/Day Years [...] 06/17/2020 relatives? How often do you attend anabaptism or jain Never 05/04/2019 services? Do you belong to any clubs or organizations such No 06/17/2020 as anabaptism groups, unions, fraternal or athletic groups, or [...] to pay for the very basics like Brad buenrostro hard 06/17/2020 food, housing, medical care, and [...] Assigned at Date Recorded Not on file Last Filed Vital Signs Vital Sign Reading Time Taken Comments Blood Pressure 157/94 06/20/2020 2:25 PM [employer] Pulse 97 06/20/2020 2:25 PM [employer] Temperature 37.2 ??C (98.96 ??F) 11/30/2017 9:00 AM CDT Respiratory Rate 14 11/30/2017 9:00 AM CDT Oxygen Saturation 97% 11/30/2017 9:00 AM CDT Inhaled Oxygen Concentration - - Weight 123 kg (271 lb 2.7 oz) 06/20/2020 2:25 PM [employer] Height 199.5 cm (6' 6.54) 06/20/2020 2:25 PM [employer] Body Mass Index 30.9 06/20/2020 2:25 PM [employer] Plan of Treatment Scheduled Procedures Name Priority Associated Diagnoses Date/Time DECOMPRESSION SPINE - POSTERIOR LUMBAR Lumbar Di sc Disorder Health Maintenance Due Date Last Done Comments Hepatitis B Vaccines (1 of 1980 3 - 3-dose series) Hepatitis C Screening 1980 Fasting Glucose for 05/08/2020 05/08/2019, 05/08/2019 Diabetes Screening Lipid (Cholesterol) 05/08/2020 05/08/2019 Screening Office Visit for Blood 09/17/2020 06/20/2020 Pressure Check / Re-check COVID-19 Vaccine (3 - 10/21/2020 08/26/2020, 08/03/2020 Booster for Pfizer series) Depression Screening 05/10/2021 (Annual PHQ-2) Influenza Vaccine (#1) 2022 05/08/2016, 03/17/2007, 03/17/2007 DTaP,Tdap,and Td Vaccines 01/10/2029 01/10/2019, 02/23/2008 , (8 - Td or Tdap) 03/23/1996, Additional history exists Pneumococcal vaccine (0-64 Aged Out No lo nger eligible years) based on patient 's age to complete this topic Insurance Payer Benefit Plan / Subscriber ID Effective Dates Phone Addre ss Type Group BLUE CROSS [place] [id number] 2019-Maritza [phone] [address] [address] PPO BLUE SHIELD t 9 [place] [id number] Advance Directives For more information, please contact: [phone] Latest Code Status on File Code Status Date Activated Date Inactivated Comments Full Code 11/29/2017 2:17 PM 11/30/2017 12:01 PM Full Code: Not Discussed Due to: Patient not available
--- OUTSIDE RECORDS SUMMARY | 2022-01-26 07:35 | XMS_ITS | Clinical Summary ---
:1980 Author Organization [facility] [place] [address] Care Team Providers Name Role Phone Alexis Cortez MD Primary Care Provider [phone] Allergies Active Allergy Reactions Severity Noted Date Comments Unlisted Allergen (Include Detail Runny Nose 021 Smoke from campfires In Comments) Pollen Extracts Cough 03/21/2020 Congestion Medications Medication Sig Dispensed Refills Start Date End Date Status amLODIPine (NORVASC) Take 5 mg by mouth 0 03/24/2019 Active 5 mg tablet once daily. fenofibrate 160 mg Take 160 mg by mouth 0 08/22/2020 Active tablet once daily with a meal. metFORMIN Take 1 Tablet by 0 02/09/2019 Ac tive (GLUCOPHAGE XR) 500 mouth once daily. mg Extended-Release tablet acetaminophen Take 1 Tablet (500 0 10/19/2020 Active (TYLENOL EXTRA mg) by mouth every 4 STRGTH) 500 mg hours if needed (For tablet mild pain.). Max acetaminophen dose: 4000mg in 24 hrs. glucosamine 500 mg Take 1 Capsule (500 0 10/19/2020 Active capsule mg) by mouth. May resume in 1 week Active Problems Not on file Immunizations Name Administration Dates Next Due COVID-19 vaccine ([employer] 08/26/2020, 08/03/2020 30mcg/0.3mL) PF, MDV DTP 01/15/1982, 07/23/1980, 04/09/1980, 1980 Influenza, IIV3 (Age >=3 years) 03/17/2007 Influenza, IIV4 05/08/2016 MMR 12/28/1991, 01/28/1981 Oral Polio Vaccine 01/15/1982, 04/09/1980, 1979 Td (Age >=7 Years) 03/23/1996, 09/14/1991 Tdap 01/10/2019, 02/23/2008 Family History Medical History Relation Name Comments Diabetes Father Hyperlipidemia Father Hypertension Father Seizures Mother Relation Name Status Comments Father Mother Social History Tobacco Use Types Packs/Day Years Used Date Never Smoker Smokeless Tobacco: Never Used Alcohol Use Standard Drinks/Week Comments Yes 0 (1 standard drink = 0.6 oz pure alcoho l) occasionaly Alcohol Habits Answer Date Recorded How often do you have a drink containing alcohol? Never 10/10/2020 How many drinks containing alcohol do you have on a typical Not asked day when you are drinking? How often do you have six or more drinks on one occasion? No t asked Comment: occasionaly 10/10/2020 Sex Assigned at Date Recorded Not on file Obstetrics History Last Filed Vital Signs Vital Sign Reading Time Taken Comments Blood Pressure 142/99 10/19/2020 8:12 AM CDT Pulse 88 10/19/2020 8:12 AM CDT Temperature 36.7 ??C (98 ??F) 10/19/2020 8:12 AM CDT Respiratory Rate 16 10/19/2020 8:12 AM CDT Oxygen Saturation 100% 10/19/2020 8:12 AM CDT Inhaled Oxygen - - Concentration Weight 120.2 kg (265 lb) 11/26/2020 9:26 AM Pt. reporte d TB CDT 11-26-20 Height 195.6 cm (6' 5) 11/26/2020 9:26 AM Pt. reported TB CDT 11-26-20 Body Mass Index 31.42 11/26/2020 9:26 AM CDT Plan of Treatment Health Maintenance Due Date Last Done Comments Depression screening for age 12+ 1991 Hepatitis C screening for age 0510/07/1997 18-79 Lipids for age 35-44 10/07/2014 COVID-19 vaccine series (3 - 01/26/2021 08/26/2020, 021 Booster for Pfizer series) BMI (ht and wt on same day) for 11/26/2021 11/26/2020, 0607/2020 age 18+ Influenza for age 9-49 01/08/2022 05/08/2016, 03/17/2007 Tetanus booster 01/10/2029 01/10/2019, 02/23/2008, 03/23/1996, Additional history exists Tdap Completed 01/10/2019, 02/23/2008 Results Not on filefrom Last 3 Months Insurance Payer Benefit Plan / Subscriber ID Effective Dates Phone Addre ss Type Group BLUE CROSS BLUE CROSS OF [id number] 2020-Present [address] [address] [place] [address] Advance Directives Latest Code Status on File Code Status Date Activated Date Inactivated Comments Full Code 10/18/2020 10:40 AM 10/19/2020 12:30 PM Code Status Discussion: Per Existing Order Care Teams Public Information Director Relationship Specialty Start Date End Date Alexis Cortez MD PCP - General Family Practice 10/04/20 [address] [place] [address]
--- OUTSIDE RECORDS SUMMARY | 2022-01-26 07:35 | XMS_ITS | Encounter Summary ---
:1980 Author Organization [facility] Address [address] [place] [id number] Care Team Providers Name Role Phone Unavailable Primary Care Provider Unavailable Reason for Referral Outpatient (Routine) - Closed Specialty Diagnoses / Procedures Referred By Contact Refer red To Contact Pain Medicine Diagnoses Pain Low Back Unspecified Arlet Marie APRN, [facility] [address] [place] [phone] Referral ID Status Reason Start Date Expiration Date Visits V isits Requested Authorized [id number] Closed Specialty 06/04/2020 06/04/2021 1 1 Services Required [facility] Encounter Details Date Type Department Care Team Description 06/04/2020 Orders Only Department of Emmie Hanna, Pain Low B ack (Primary Neurologic Surgery in R.N. Dx) [place], [place] [address] [facility] [address] [place] [id number] [phone] Social History Tobacco Use Types Packs/Day Years [...] 06/17/2020 relatives? How often do you attend adventist or yazidism Never 05/04/2019 services? Do you belong to any clubs or organizations such No 06/17/2020 as adventist groups, unions, fraternal or athletic groups, or [...] Disorder Scheduled Referrals Name Type Priority Associated Diagnoses Order S chedule Pain Medicine - Outpatient Referral Routine Pain Low Back Expe cted: General consult 06/04/2020 (clinic) (Approximate), Expires: 06/04/2023 documented as of this encounter Visit Diagnoses Diagnosis Pain Low Back Unspecified - Primary documented in this encounter
--- OUTSIDE RECORDS SUMMARY | 2022-01-26 07:35 | XMS_ITS | Encounter Summary ---
:1980 Author Organization [facility] Address [address] [place] [address] Care Team Providers Name Role Phone Unavailable Primary Care Provider Unavailable Reason for Visit Auth/Cert Specialty Diagnoses / Procedures Referred By Contact Refer red To Contact Diagnoses Lumbar Disc Disorder unknown Procedures IN LMNOTOMY W DCMPRN 1 SPACE LUMB LAMINECTOMY LUMBAR WITH DISCECTOMY Referral ID Status Reason Start Date Expiration Date Visits Requ ested Visits Authorized [id number] 1 1 Encounter Details Date Type Department Care Team Description 11/29/2017 - Hospital Encounter [facility] ElderKyle Lumbar Disc 11/30/2017 [facility] M.D., Ph.D. Disorder ([facility], [place] [address]) [place], [place] Ninth Floor [id number] [place] [address] [place], [place] (Work) [phone] Social History Tobacco Use Types Packs/Day Years [...] 06/17/2020 relatives? How often do you attend holiness or baptist Never 05/04/2019 services? Do you belong to any clubs or organizations such No 06/17/2020 as holiness groups, unions, fraternal or athletic groups, or [...] Sign Reading Time Taken Comments Blood Pressure 160/101 11/30/2017 9:00 AM CDT Pulse 104 11/30/2017 9:00 AM CDT Temperature 37.2 ??C (98.96 ??F) 11/30/2017 9:00 AM CDT Respiratory Rate 14 11/30/2017 9:00 AM CDT Oxygen Saturation 97% 11/30/2017 9:00 AM CDT Inhaled Oxygen Concentration - - Weight 114 kg (252 lb 3.3 oz) 11/29/2017 6:58 AM CDT Height 194 cm (6' 4.38) 11/29/2017 6:58 AM CDT Body Mass Index 30.4 11/29/2017 6:58 AM CDT documented in this encounter Discharge Summaries Ari Duval M.D. - 11/30/2017 9:45 AM CDT DISCHARGE SUMMARY BRIEF OVERVIEW Discharge Provider: Dr. Briscoe No primary care provider on file. Primary Care Provider Phone Number: None Primary Care Provider Fax Number: None Other Providers: Carlos Smith MD Admission Date: 11/29/2017 Discharge Date: 11/30/2017 PRINCIPAL DIAGNOSIS Lumbar Disc Disorder SECONDARY DIAGNOSES Principal Problem: Lumbar Disc Disorder Resolved Problems: * No resolved hospital problems. * Operative Procedures: Scheduled (Jamey), Completed (Comp) or Canceled (Can) Case IDs Date Procedure Surgeon Location Status [id number] 11/29/17 Right L4-5 hemilaminectomy, microdiskectomy. Kyle Briscoe M.D., Ph.D. RST ROMB OR Comp DISCHARGE DISPOSITION Home or Self Care [1] ACTIVE ISSUES REQUIRING FOLLOW UP INCISION: The patient has a surgical incision, and should monitor for signs and symptoms of infection which include, but are not limited to, redness at the site of the incision, purulent drainage from the incision, separation of the wound edges, nausea, vomiting, general malaise, fevers greater than 101.5 degrees Fahrenheit, and chills. If these occur in combination or if there is gross purulence coming from the wound, the patient should call. The surgical wound should be kept clean, and this is best accomplished by letting shower water run across it. You may shower two days after surgery. The wound should not be directly rubbed or scrubbed for a period of at least six weeks. The wound should not be immersed in water (i.e. hot tub, bath tub, swimming, etc.) for a period of at least six weeks. WOUND CLOSURE The patient's skin wound has been approximated with dissolvable subcuticular sutures which require no further care. There are Steri-Strips across the incision, and these should be allowed to fall off spontaneously. If any remain 2 weeks after surgery please remove them. ACTIVITY: You are encouraged to walk as much as possible. No heavy lifting (greater than 15 pounds), repetitive bending, stooping, kneeling, or manual labor for 6 weeks. No strenuous exercise or activity, other than walking, for 6 weeks. It is okay to ride in a car, drive a car (when off narcotics), and climb stairs. PAIN MANAGEMENT: Take your pain medications as instructed. It is best to take pain medications before your pain becomes severe. This will allow you to take less medication yet have better pain relief. For the first 2 or 3 days it may be helpful to take your pain medications on a regular schedule (e.g. every 4 to 6 hours). This will help you to keep your pain under better control. You should then begin to take fewer medications each day until you no longer need them. Do not consume more than 4000 mg or 4 gm of Tylenol or acetaminophen-containing products (Percocet, Vicodin, etc.) within a 24 hour time period to avoid damage to your liver. Do not take pain medication on an empty stomach. This may lead to nausea and vomiting. Do not drive, operate heavy machinery, ride motorcycles or ATVs, drink alcohol, or take other drugs that make you tired or sleepy while taking narcotic pain medications (Percocet, Vicodin, oxycodone, etc.). Do not participate in any dangerous activity while taking pain medications. Pain medications may decrease your ability to make safe decisions. Neurosurgery will not refill narcotic prescriptions. If you require further narcotic medication, youshould contact your primary care provider who can determine if you are experiencing a complication from your surgery. None OUTPATIENT FOLLOW UP No future appointments. TEST RESULTS PENDING AT DISCHARGE DETAILS OF HOSPITAL STAY REASON FOR ADMISSION Lumbar Disc Disorder Lumbar Disc Disorder HOSPITAL COURSE Mr. Parisi was admitted to the hospital on 11/29/17 for a right L4-5 hemilaminectomy and microdiskectomy. The intraoperative and immediate postoperative courses were uncomplicated and the patient was transferred to the PACU for a brief stay following anesthesia. The patient was then transferred to the general neurosurgical floor where he was monitored overnight. He was evaluated by physical therapy formobilization and deemed to be medically stable for discharge home when he was ambulating and voidingindependently with pain well controlled on oral medications. CONSULTS ORDERED DURING THIS ADMISSION None CONDITION AT DISCHARGE stable Discharge instructions were provided to the patient and caregiver(s). documented in this encounter Medications at Time of Discharge Medication Sig Dispensed Refills Start Date End Date fenofibrate (LOFIBRA) 160 Take 160 mg by 0 2017 mg tablet mouth every morning. acetaminophen (TYLENOL) Take 1,000 mg by 0 05/08/2019 500 mg tablet mouth every 8 (eight) hours. gabapentin (NEURONTIN) 300 1 capsule 3 (three) 0 10/26/2017 01/20/2018 mg capsule times a day. lisinopril Take 10 mg by mouth 0 11/02/201705/08 (PRINIVIL,ZESTRIL) 10 mg at bedtime. tablet omega-3 acid ethyl esters Take 2 g by mouth 0 05/08/2019 (LOVAZA) 1 gram capsule every morning. traMADol (ULTRAM) 50 mg Take 50 mg by mouth 0 03/201801/20/2018 tablet 3 (three) times a day. documented as of this encounter Progress Notes Art Candelario M.D. - 11/30/2017 9:40 AM CDT Post Anesthesia Assessment Note Patient: Tejas Parisi General Info Post-procedure day: 1 Follow-up type: inpatient general/MAC Inpatient Follow-up Cardio system: hemodynamic (HR & BP) acceptable Level of consciousness: awake Respiratory status: patent airway with spontaneous effort Pain assessment: pain adequately controlled and /or at baseline Oxygen requirement: room air Nausea/vomiting: none Overall Comments Patient seen on hospital floor, doing well. Standing outside room, preparing to discharge from hospital. Pain improved compared to preoperative status, now able to stand straight on both feet. Pain 3/10 on tramadol and gabapentin. Mild nausea post-operatively yesterday which resolved spontaneously after a nap. Remembers preoxygenation then waking up in PACU. Satisfied with anesthetic. T Evaristo Smith M.D. - 11/30/2017 7:33 AM CDT Mr. Parisi is postop day 1 from a right L4-L5 hemilaminectomy and microdiskectomy. He has been ambulating around the room, voiding spontaneously, having no trouble with p.o. intake. His preoperative right leg pain is absent and he is walking without a cane. He moves his right leg well with good strength. Mr. Parisi will discharge home today. I will plan a 6 week followup which he can keep if you wants are cancel based on how he is doing. All other cares per the service note from today. If there are questions please page [phone]. T Lala Wright M.D. - 11/30/2017 6:41 AM CDT Neurosurgery Progress Note SUBJECTIVE No acute events overnight, pt has been ambulating and voiding independently, pain is controlled to 3/10 with oral Tramadol OBJECTIVE PHYSICAL EXAM A&Ox3 Motor strength full and intact in bilateral lower extremities INCISION Clean/dry/no redness or swelling of skin edges ASSESSMENT AND PLAN Tejas Parisi is a 37 y.o. male who is POD#1 s/p R L4-5 hemilaminectomy and microdiskectomy. ?? Plan: - Pain management with PO Tramadol and Gabapentin - Blood pressure goal systolic <160 with PRN hydralazine and labetalol - Bowel regimen senna/docusate, miralax and PRN - IV Zofran and Dramamine for nausea control - Continue home meds: fenofibrate, gabapentin, lisinopril, tramadol - Katelyn-operative antibiotic prophylaxis with Ancef x3 doses - Regular adult diet - Activity as tolerated, PT consulted for mobilization today before homegoing - SCDs. Holding DVT chemoprophylaxis. - Routine floor cares - Anticipate discharge home today ?? Please page the Neurosurgery Chief A service at [phone] with any questions or concerns. Lala Wright M.D. Holli Belle P.A.-C., M.S. - 11/29/2017 5:17 PM CDT SUBJECTIVE Postoperative check, patient reports a significant improvement in his radicular component, and tingling of his right big toe. The patient is mobilizing and voiding spontaneously. VITALS Temperature: [36.4 ??C-36.9 ??C] 36.9 ??C Heart Rate: [106-134] 106 Resp Rate: [8-19] 16 Blood Pressure: (118-159)/(72-106) 138/76 SpO2: [95 %-100 %] 97 % Flow Rate (L/min): [2 L/min] 2 L/min Pulse Rate: [93-135] 103 I&O Intake/Output Summary (Last 24 hours) at 11/29/17 1718 Last data filed at 11/29/17 1600 Gross per 24 hour Intake 2300 ml Output 1100 ml Net 1200 ml PHYSICAL EXAM Neuro: Lower extremity strength and sensation is intact. WOUND Dressing in place LABS PLAN #1 Lumbar Disc Disorder 1. Neurologically intact 2. Patient is voiding spontaneously and mobilizing 3. Tylenol and oxycodone as needed for pain 4. Zofran as needed for nausea 5. Complete three more doses of IV Ancef 6. Likely DC home in the morning Lala Wright M.D. - 11/29/2017 2:07 PM CDT Neurosurgery Progress Note SUBJECTIVE Pt feeling well, slightly nauseous post-operatively. States leg feels much stronger than pre-operatively. Does note some subjective paresthesias in the right big toe. OBJECTIVE PHYSICAL EXAM A&Ox3 Motor strength full and symmetric in bilateral lower extremities (hip flexion, knee flexion, knee extension, ankle dorsiflexion, ankle plantarflexion and extensor hallices longus) Sensory exam grossly intact in bilateral lower extremities, including R big toe, although pt does not subjective paresthesias in this area INCISION Covered by dressing in the immediate post-operative period ASSESSMENT AND PLAN Tejas Parisi is a 37 y.o. male who is POD#0 s/p R L4-5 hemilaminectomy and microdiskectomy. Plan: - Pain management with IV fentanyl, PO oxycodone and PO Tylenol - Blood pressure goal systolic <160 with PRN hydralazine and labetalol - Bowel regimen senna/docusate, miralax and PRN - IV Zofran and Dramamine for nausea control - Continue home meds: fenofibrate, gabapentin, lisinopril - Katelyn-operative antibiotic prophylaxis with Ancef x3 doses - Advance diet as tolerated post-operatively. - Activity as tolerated, PT consulted for mobilization - SCDs. Holding DVT chemoprophylaxis. - Routine floor cares Please page the Neurosurgery Chief A service at [phone] with any questions or concerns. Lala Wright M.D. documented in this encounter H&P Notes Ari Duval M.D. - 11/29/2017 6:27 AM CDT INTERVAL HISTORY AND PHYSICAL PRE-PROCEDURE UPDATE H&P reviewed. The patient was examined and there are no significant changes to the H&P. Ari Duval M.D. Source Note - Evaristo Smith M.D. - 11/19/2017 1:00 PM CDT REASON FOR VISIT: Right leg pain. HISTORY OF PRESENT ILLNESS Mr. Parisi is a 37-year-old male who was seen by Ada Pandey from the Neurosurgery Service. His history is well outlined in her notes. Briefly, he has had right leg pain on and off since 2013. The pain has grown more intense since March of last year. He describes the pain as starting over his right upper gluteal region and going down his leg and occasionally to the top of his right foot. It is a burning, grating sensation. It is not positional in the sense that it occurs with standing as well as lying down. He has tried multiple therapies including injections, medication, and physical therapy. He had a right L5 transforaminal injection recently, which he says has allowed him to get more sleep and taken away the burning sensation. He still has some pain in his right hip area, which he thinks is musculoskeletal and related the fact that he has had to change his gait and is now walking with a cane secondary to the leg pain. OBJECTIVE PHYSICAL EXAMINATION Neurologic: Normal strength in his bilateral lower extremities. DIAGNOSTICS I reviewed x-rays from today, November 19, 2017. These show a slight leftward curve, though it appears that the patient may actually be leaning to his right on the x-ray. They are not global spine films. On the lateral films, he has loss of disk height at L2-3, 3-4, 4-5, and L5-S1. He has 2 MRIs from July 07, 2017, and May 04, 2014. He has multilevel disk herniations most prominent at L3- 4, 4-5,and L5-S1. There is disk herniation at 4-5, which is rightward and would certainly impinge on the traversing L5 nerve root. ASSESSMENT / PLAN I think Mr. Parisi has clinical symptoms that are consistent with L5 radiculopathy caused by L4-5 disk herniation. He has failed conservative management. He has had a good response to a recent injection. I think a right L4-5 hemilaminectomy and microdiskectomy is a reasonable option for him. I discussed the risks and benefits of this. I quoted an 80% chance that his pain would be better after surgery.I discussed the risk of CSF leak for infection of 1% to 2%. He is going to think about whether he wants to proceed with surgery or not and contact me with a definitive decision. #1 Right L5 radiculopathy #2 L4-5 disk herniation documented in this encounter Nursing Notes Lydia Inman R.N. - 11/30/2017 9:46 AM CDT Goals: DISCHARGE PLANNING ??? Patient discharge needs identified Adequate for Discharge INFECTION - ADULT ??? Absence of infection during hospitalization Adequate for Discharge KNOWLEDGE DEFICIT ??? Patient/family/caregiver demonstrates understanding of disease process, treatment plan, medications, and discharge instructions Adequate for Discharge PAIN - ADULT ??? PT VERBALIZES/DEMONSTRATES ADEQUATE COMFORT LEVEL OR BASELINE Adequate for Discharge SAFETY ADULT ??? Maintain a safe environment Adequate for Discharge SAFETY ADULT - RISK FOR FALL AND OR FALL INJURY ??? Patient remains free from fall/fall injury Adequate for Discharge SKIN/TISSUE INTEGRITY ??? Skin/Tissue integrity maintained or improved Adequate for Discharge ??? Oral and Nasal mucous membranes remain intact Adequate for Discharge Identify possible barriers to meeting goals/advancing plan of care: None Stability of the patient: Moderately Stable - Low risk of patient condition declining or worsening End of Shift Summary: Patient doing very well, discharging home today (11/30). Twin Inman R.N. Esperanza Oneal R.N. - 11/30/2017 12:50 AM CDT Goals: To demonstrate safe habits while ambulating. Identify possible barriers to meeting goals/advancing plan of care: none Stability of the patient: Moderately Stable - Low risk of patient condition declining or worsening End of Shift Summary: Patient was ambulating with stand by assistance of one with no difficulty. Pain was well managed with an average pain score of 2. The call light was used appropriately and vital sign were stable with bouts of HTN, and tachycardia. Aryan Blair R.N. - 11/29/2017 5:33 PM CDT Goals: Identify possible barriers to meeting goals/advancing plan of care: none Stability of the patient: Moderately Stable - Low risk of patient condition declining or worsening End of Shift Summary: DISCHARGE PLANNING ??? Patient discharge needs identified Progressing INFECTION - ADULT ??? Absence of infection during hospitalization Progressing KNOWLEDGE DEFICIT ??? Patient/family/caregiver demonstrates understanding of disease process, treatment plan, medications, and discharge instructions Progressing PAIN - ADULT ??? PT VERBALIZES/DEMONSTRATES ADEQUATE COMFORT LEVEL OR BASELINE Progressing SAFETY ADULT ??? Maintain a safe environment Progressing SAFETY ADULT - RISK FOR FALL AND OR FALL INJURY ??? Patient remains free from fall/fall injury Progressing SKIN/TISSUE INTEGRITY ??? Skin/Tissue integrity maintained or improved Progressing ??? Oral and Nasal mucous membranes remain intact Progressing Pt arrived up on unit at 1400. Pt was able to walk off cart and complains of minimal pain. Pt is able to manage pain at this time with tylenol. Plan is to DC tomorrow morning. Aryan Blair R.N. documented in this encounter OR Notes Op Note - Kyle Briscoe M.D., Ph.D. - 11/29/2017 8:56 AM CDT FULL OP NOTE Procedure 1. Right L4-L5 hemilaminectomy and microdiskectomy, L5 foraminotomy 2. Intraoperative microscope use Surgeon(s) and Role: * Kyle Briscoe M.D., Ph.D. - Primary * Evaristo Smith M.D. - Chief Resident - Performing * Ari Duval M.D. * Lala Wright M.D. Anesthesia Type: General Pre-Operative Diagnosis: Lumbar Disk Disorder [M51.9]. Right L5 radiculopathy Post-Operative Diagnosis: Status post right L4-5 hemilaminectomy and microdiskectomy Findings: As expected Complications: None Description of Procedure: The patient was brought to OR 703 and placed under general anesthesia with endotracheal intubation. He was turned to the prone position on a Stephan table with all pressure points carefully padded and a face pillow. A planned incision was marked out to approximate the L4-L5 disc space. After the patient was sterilely prepped and draped and an appropriate operative pause, incision was made with a scalpel and electrocautery. This was carried down to expose a spinous process on the right and a lamina was exposed in a subperiosteal fashion. A marking stitch was placed on the spinous process and a Hilario clamp was placed on the back of the lamina and a localizing x-ray was taken. This showed the clamp on the back of the L4 lamina on the right. Dr. Briscoe performed the spine pause. The operative microscope was brought to the field after self retaining retractors were placed. A right L4-L5 hemilaminectomy was done respecting the pars of L4. A portion of the superior L5 was also drilled off. The yellow ligament was removed. The shoulder of the L5 nerve root was visualized and the pedicle of L5 was palpated. The L4-L5 disc space was found in entered using a 11 blade scalpel to create a small annulotomy. Several fragments of disc were removed that were consistent with the patient's preoperative MRI. The disc space was also entered and a small amount of disc was removed using pituitary punches. The surgical goals of decompressing the right L5 nerve root as well as performing a fragmentectomy were accomplished and the wound was irrigated. A x-ray was taken with a [place] 4 in the L4-5 disc space. Hemostasis was obtained using bipolar cautery and FloSeal. The wound was closed in anatomical layers using a reabsorbable subcuticular stitch to close the skin. Patient was turned back into the supine position, extubated, taken the PACU for recovery without complication. Estimated Blood Loss 100 mL Evaristo Smith M.D. Brief Op Note - Lala Wright M.D. - 11/29/2017 8:56 AM CDT BRIEF OP NOTE R L4-5 hemilaminectomy, microdiskectomy Surgeon(s) and Role: * Kyle Briscoe M.D., Ph.D. - Primary * Evaristo Smith M.D. - Chief Resident - Performing * Ari Duval M.D. * Lala Wright M.D. Anesthesia Type: General Pre-Operative Diagnosis: Lumbar Disk Disorder [M51.9]. Brief Operative Note Details Specimens * No specimens in log * Drains * No drains in log * Estimated Blood Loss 100 mL Implants * No implants in log * Lala Wright M.D. documented in this encounter Miscellaneous Notes Hospital Course - Lala Wright M.D. - 11/29/2017 7:18 PM CDT Mr. Parisi was admitted to the hospital on 11/29/17 for a right L4-5 hemilaminectomy and microdiskectomy. The intraoperative and immediate postoperative courses were uncomplicated and the patient was transferred to the PACU for a brief stay following anesthesia. The patient was then transferred to the general neurosurgical floor where he was monitored overnight. He was evaluated by physical therapy formobilization and deemed to be medically stable for discharge home when he was ambulating and voidingindependently with pain well controlled on oral medications. documented in this encounter Plan of Treatment Scheduled Procedures Name Priority Associated Diagnoses Date/Time DECOMPRESSION SPINE - POSTERIOR LUMBAR Lumbar Di sc Disorder documented as of this encounter Procedures Procedure Name Priority Date/Time Associated Comments Diagnosis REMOTE OXIMETRY Routine 11/29/2017 1:10 MONITORING CONT. PM CDT DX SPINE 1 VIEW RAD - Routine 11/29/2017 11:24 Results for this (most inpatients AM CDT procedure a re in and all the results outpatients) section. DX SPINE 1 VIEW RAD - Routine 11/29/2017 9:15 Results for this (most inpatients AM CDT procedure a re in and all the results outpatients) section. LAMINECTOMY LUMBAR 11/29/2017 7:36 Lumbar Disc WITH DISCECTOMY AM CDT Disorder documented in this encounter Results Dx Spine 1 View (11/29/2017 11:24 AM CDT) Anatomical Region Laterality Modality Spine, Musculoskeletal RST LOS N/A Digital R adiography Specimen (Source) Anatomical Collection Method Collection Time Re ceived Time Location / / Volume Laterality 11/29/2017 11:46 AM CDT Impressions 11/29/2017 11:47 AM CDT IMPRESSION: ??Image obtained for localization purposes. Presuming 5 lumbar type vertebral bodies, the tip of the metalli c instrument projects at the L4-5 interspace. Narrative 11/29/2017 11:47 AM CDT EXAM: ??DX SPINE 1 VIEW Procedure Note Barb Field M.D. - 11/29/2017Form atting of this note might be different from the original. EXAM: DX SPINE 1 VIEW IMPRESSION: Image obtained for localizat ion purposes. Presuming 5 lumbar type vertebral bodies, the tip of the metalli c instrument projects at the L4-5 interspace. Kyle Briscoe M.D., Ph.D. G DIAGNOSTIC IMAGING IN OCEDURES Dx Spine 1 View (11/29/2017 9:15 AM CDT) Anatomical Region Laterality Modality Spine, Musculoskeletal RST LOS N/A Digital R adiography Specimen (Source) Anatomical Collection Method Collection Time Re ceived Time Location / / Volume Laterality 11/29/2017 9:18 AM CDT Impressions 11/29/2017 9:19 AM CDT IMPRESSION: ??Intraoperative image(s) obtained for localization purposes. Narrative 11/29/2017 9:19 AM CDT EXAM: ??DX SPINE 1 VIEW Procedure Note Floyd Butler M.D. - 11/29/2017F ormatting of this note might be different from the original. EXAM: DX SPINE 1 VIEW IMPRESSION: Intraoperative image(s) obta ined for localization purposes. Kyle Briscoe M.D., Ph.D. IMG DIAGNOSTIC IMAGING IN OCEDURES documented in this encounter Visit Diagnoses Diagnosis Lumbar Disc Disorder - Primary documented in this encounter Admitting Diagnoses Diagnosis Lumbar Disc Disorder documented in this encounter Administered Medications Inactive Administered Medications - up to 3 most recent administrations Medication Order MAR Action Action Date Dose Rate Site acetaminophen injection 1,000 New Bag 11/29/2017 1:18 PM 1,000 mg 400 mL/hr mg (OFIRMEV) CDT 1,000 mg, intravenous, at 400 mL/hr, Administer over 15 Minutes, Once, On Wed11/29/17 at 1315, For 1 dose, PACU (only), Oral unless RASS less than -1 or nausea/vomiting. Do not use if given in last 6 hours, Restriction Criteria (Pharmacy will review and approve if criteria met): Unable to take or tolerate medications administered via the enteral route or orally (not just NPO) ceFAZolin in dextrose (iso-os) IVPB 2 New Bag 11/30/2017 4:23 AM CDT 2 g 200 mL/hr g (ANCEF) 2 g, intravenous, at 200 mL/hr, Administer over 30 Minutes, Every 8 hours, First dose on Wed11/29/17 at 2000, For 3 doses, Start within 8 hours of last IV dose. premix, Drug Monitoring Program: Pharmacist to adjust medication order based on comorbities and indication., Indications: Prophylaxis, medical New Bag 11/29/2017 9:32 PM CDT 2 g 200 mL/hr fenofibrate nanocrystallized tablet 48 mg Given 11/30/2017 9:02 AM CDT 48 mg (TRICOR) 48 mg, oral, Daily, First dose on Wed11/30/17 at 0900, fenofibrate < 120 mg oral daily was interchanged with fenofibrate nonocrystallized gabapentin capsule 300 mg (NEURONTIN) Given 11/30/2017 9:02 AM CDT 300 mg 300 mg, oral, 3 times daily, First dose on Wed11/29/17 at 2100, Drug Monitoring Program: Pharmacist to adjust medication order based on comorbities and indication. Given 11/29/2017 10:23 PM CDT 300 mg hydrALAZINE tablet 25 mg (APRESOLINE) 25 mg, oral, Every 6 hours PRN, For SBP>160, Starting on Wed11/29/17 at 1421 labetalol tablet 50 mg (NORMODYNE) 50 mg, oral, Every 6 hours PRN, For SBP>160, hold for HR<60, Starting on Wed11/29/17 at 1421 lactated ringers Continued from OR 11/29/2017 12:30 PM 20 mL/hr 20 mL/hr 20 mL/hr, intravenous, CDT Continuous, Starting on Wed11/29/17 at 1200, PACU & Post-Op lisinopril tablet 10 mg (PRINIVIL,ZESTRI L) Given 11/29/2017 10:23 PM CDT 10 mg 10 mg, oral, Daily at bedtime, First dose on Wed11/29/17 at 2100 methocarbamol tablet 500 mg (ROBAXIN) 500 mg, oral, Every 6 hours PRN, muscle spasms, Starti ng on Wed11/29/17 at 1934 polyethylene glycol powder packet 17 g Given 11/30/2017 9:00 AM CDT 17 g (MIRALAX) 17 g, oral, Daily, First dose on Wed11/30/17 at 0900, Hold for diarrhea Avoid mixing with starch-based thickened liquids. sennosides-docusate sodium 8.6-50 mg per Given 11/30/2017 9: 02 AM CDT 2 tablets tablet 2 tablet (SENOKOT-S) 2 tablet, oral, 2 times daily, First dose on Wed11/29/17 at 2100, Hold for diarrhea. Given 11/29/2017 10:23 PM CDT 2 tablets traMADol tablet 50 mg (ULTRAM) Given 11/30/2017 6:51 AM CDT 50 mg 50 mg, oral, Every 8 hours PRN, severe pain or score 7-10 of 10, Starting on Wed11/29/17 at 1858, Drug Monitoring Program: Pharmacist to adjust medication order based on comorbities and indication. Given 11/29/2017 7:29 PM CDT 50 mg documented in this encounter Active and Recently Administered Medications Times are shown in CDT. Scheduled Medication Order 11/28/2017 11/29/2017 11/30/2017 acetaminophen injection 1,000 mg (OFIRMEV) (COMPLETED) 1318 (New Bag - Provider: Ana Stapleton R.N.) 1,000 mg, intravenous, at 400 mL/hr, Adm inister over 15 Minutes, Once, On Wed11/29/17 at 1315, For 1 dose, PACU (only), Oral unless RASS less than -1 or nausea/vomiting. Do not use if given in last 6 ho urs, Restriction Criteria (Pharmacy will review and approve if criteria met): Unable to take or tolerate medications administered via the enteral route or orally (not just NPO) ceFAZolin in dextrose (iso-os) IVPB 2 g (ANCEF) 213 (New Bag - Provider: Esperanza Oneal RMaryN.) 0423 (New Bag - Provider: Esperanza mcdonald R.NMary) 2 g, intravenous, at 200 mL/hr, Administ er over 30 Minutes, Every 8 hours, First dose on Wed11/29/17 at 2000, For 3 doses, Start within 8 hours of last IV dose. premix, Drug Monitoring Program: Pharmaci st to adjust medication order based on c omorbities and indication., Indications: Prophylaxis, medical ceFAZolin injection 2 g (ANCEF) (COMPLETED) 2681 (Given - Provider: Art Candelario M.D.)1148 (Given - Provider: Jaqueline Higgins APRN, JB) 2 g, intravenous, Once, Wed11/29/17 at 0 830, For 1 dose, Intra-Op, Preoperatively within 1 hour prior to surgical incision [place] IV push over 3 minutes. Add 5 mL NS to 1 gram vial for a final concen tration of 200 mg/mL., Drug Monitoring P rogram: Pharmacist to adjust medication order based on comorbities and indication., Indications: Prophylaxis, Surgical fenofibrate nanocrystallized tablet 48 mg (TRICOR) 901 (Given - Provider: Lydia Inman R.N.) 48 mg, oral, Daily, First dose on Wed at 0900, fenofibrate < 120 mg oral daily was interchanged with fenofibrate nonocrystallized gabapentin capsule 300 mg (NEURONTIN) (Given - Provider: Esperanza Oneal R.N.) 901 (Given - Provider: Lydia Inman R.N.) 300 mg, oral, 3 times daily, First dose on Wed11/29/17 at 2100, Drug Monitoring Program: Pharmacist to adjust medication order based on comorbities and indication. lisinopril tablet 10 mg (PRINIVIL,ZESTRIL) 2222 (Given - Provider: Esperanza Oneal R.N.) 10 mg, oral, Daily at bedtime, First dose on Wed11/29/17 at 2100 polyethylene glycol powder packet 17 g (MIRALAX) 0900 (Given - Provider: Lydia Inman R.N.) 17 g, oral, Daily, First dose on 11/08 at 0900, Hold for diarrhea Avoid mixing with starch-based thickened liquids. sennosides-docusate sodium 8.6-50 mg per tablet 2 tablet (SE NOKOT-S) 2222 (Given - Provider: Esperanza Oneal R.N.) 09 (Given - Provider: Lydia Inman R.N.) 2 tablet, oral, 2 times daily, First dos e on Wed11/29/17 at 2100, Hold for diarrhea. Continuous Medication Order 11/28/2017 11/29/2017 11/30/2017 lactated ringers (CANCELED) 1230 (Contin ued from OR - Provider: Ana Stapleton R.N. - Comment: 350 ml remains in 1000 ml bag)1345 (Continue to Inpatient Floor - Provider: Ana Stapleton R.N. - Comment: 250 ml remains in 1000 ml bag) 20 mL/hr, intravenous, Continuous, Start ing on Wed11/29/17 at 1200, PACU & Post-Op NaCl 0.9% infusion 1430 (Stopped - Provider: Kaitlyn Blair R.N.) 80 mL/hr, intravenous, at 80 mL/hr, Cont inuous, Starting Wed11/29/17 at 1430, Continue until pt PO intake greater than 500 mL/day, then d/c phenylephrine 80 mcg/mL in NaCl 0.9% 250 mL infusion 0815 (Due) 0.1-1 mcg/kg/min ? 114.4 kg Dosing weight (8.58-85.8 mL/hr), intravenous, at 8.58-85.8 mL/hr, Continuous, Starting Wed11/29/17 at 0815, Intra-Op, Premix ba mg in 250 mL, Titrate: Per Provider PRN Medication Order 11/28/2017 11/29/2017 11/30/2017 acetaminophen tablet 650 mg (TYLENOL) 650 mg, oral, Every 6 hours PRN, fever, pain, Starting Wed at 1417 bacitracin-gentamicin 50,000 unit-80 mg/ 1000 mL in NaCl 0.9% irrigation (COMPLETED) 1109 (Given - Provider: Evaristo Smith M.D.) irrigation, Once in surgery, OR use only , Starting Wed11/29/17 at 0816, For 1 dose, Intra-Op, IRRIGATION USE ONLY benzocaine-menthol 15-3.6 mg per lozenge 1 lozenge (CEPACOL) 1 lozenge, oral, As needed, sore throat, throat irritation, Starting Wed11/29/17 at 1417 bisacodyl suppository 10 mg (DULCOLAX) 10 mg, rectal, Daily PRN, constipation, No bowel movement in 3 days, Starting Wed11/29/17 at 1417, Ordered sequence of administration: polyethylene glycol, then bisacodyl until BM achieved. dimenhyDRINATE injection 50 mg (DRAMAMINE) 50 mg, intravenous, Every 6 hours PRN, n ausea, Starting Wed11/29/17 at 1417, Give IV PUSH over 2 minutes. fentaNYL injection 25 mcg (SUBLIMAZE) 25 mcg, intravenous, Every 2 hour PRN, s evere pain or score 7-10 of 10, Starting Wed11/29/17 at 1417, For breakthrough pain unrelieved 30 minutes after PRN pain medication is used. May administer IV mike n medication concurrently with PRN oral medication if pain is greater than or equal to 7 in order to provide immediate relief. gelatin absorbable 12-7 mm sponge (GELFOAM) (CANCELED) 1002 (Given - Provider: Evaristo Smith M.D.) As needed, Starting Wed11/29/17 at 1002, Intra-Op hydrALAZINE tablet 25 mg (APRESOLINE) 25 mg, oral, Every 6 hours PRN, For SBP>160, Starting on 11/08 at 1421 labetalol tablet 50 mg (NORMODYNE) 50 mg, oral, Every 6 hours PRN, For SBP> 160, hold for HR<60, Starting on Wed11/29/17 at 1421 magnesium hydroxide suspension 30 mL (MILK OF MAGNESIA) 30 mL, oral, Daily PRN, constipation, No bowel movement in three days, Starting Wed11/29/17 at 1417, Give magnesium hydroxide if no bowel movement by post- operative day 3. methocarbamol tablet 500 mg (ROBAXIN) 500 mg, oral, Every 6 hours PRN, muscle spasms, Starti ng on Wed11/29/17 at 1934 naloxone injection 0.2 mg (NARCAN) 0.2 mg, intravenous, As needed, respirat ory depression, Starting Wed11/29/17 at 1417, For respiratory rate less than 8 breaths per minute or RASS score of -3, - 4, -5. Apply oxygen to keep oxygen saturations greater than 90% and notify service. ondansetron (PF) injection 4 mg (ZOFRAN) 4 mg, intravenous, Every 6 hours PRN, na usea, vomiting, Starting Wed11/29/17 at 1417 traMADol tablet 50 mg (ULTRAM) 1928 (Giv en - Provider: Esperanza Oneal R.N.) 7729 (Given - Provider: Esperanza craven R.N.) 50 mg, oral, Every 8 hours PRN, severe p ain or score 7-10 of 10, Starting on Wed11/29/17 at 1858, Drug Monitoring Program: Pharmacist to adjust medication order based on comorbities and indication. documented in this encounter
--- OUTSIDE RECORDS SUMMARY | 2022-01-26 07:35 | XMS_ITS | Encounter Summary ---
:1980 Author Organization [facility] Address [address] [place] [id number] Care Team Providers Name Role Phone Unavailable Primary Care Provider Unavailable Reason for Visit Reason Comments Appointment Encounter Details Date Type Department Care Team Description 02/14/2020 Clinical Communication Department of Arlet Marie Neurologic Surgery in [place], [employer], C .N[employer] [place], [place] [address] [facility] [place] [address] [place] [phone] Social History Tobacco Use Types Packs/Day Years [...] 06/17/2020 relatives? How often do you attend anabaptist or confucianist Never 05/04/2019 services? Do you belong to any clubs or organizations such No 06/17/2020 as anabaptist groups, unions, fraternal or athletic groups, or [...] this encounter Miscellaneous Notes Telephone Encounter - Preciouslouis Pa Humphreys - 02/14/2020 8:21 AM CDT Pauly Nice, I spoke with Mr. Parisi this morning and he recently had some X-Rays, but has not had a Lumbar MRI since the one he did here on March 11 2018. If you could please place orders we can set up imaging and then an appointment to see you. Please respond to the RST JOSE LUIS SCHEDULING Pool Thank You documented in this encounter Plan of Treatment Scheduled Procedures Name Priority Associated Diagnoses Date/Time DECOMPRESSION SPINE - POSTERIOR LUMBAR Lumbar Di sc Disorder documented as of this encounter Visit Diagnoses Diagnosis Pain Low Back Unspecified documented in this encounter
--- OUTSIDE RECORDS SUMMARY | 2022-01-26 07:36 | XMS_ITS | Encounter Summary ---
:1980 Author Organization [facility] Address [address] [place] [address] Care Team Providers Name Role Phone Unavailable Primary Care Provider Unavailable Reason for Visit Appointment Request (Routine) - Closed Specialty Diagnoses / Procedures Referred By Contact Refer red To Contact Alexis Hong M.D. [address] [place] [id number] Referral ID Status Reason Start Date Expiration Date Visits Requ ested Visits Authorized [id number] Closed 09/13/2017 03/12/2018 2 1 Encounter Details Date Type Department Care Team Description 11/19/2017 Comprehensive Visit Department of Evaristo Smith Pain Leg Right Neurologic Surgery Yefri Brooks (Primary Dx) in [place], [place] [address] [place] [address] Social History Tobacco Use Types Packs/Day Years Used Date Smoking Tobacco: Never Assessed Alcohol Habits Answer Date Recorded How often do you have a drink containing alcohol? Monthly or less 06/17/2020 How many drinks containing alcohol do you have on a 1 or 2 06/17/2020 typical day when you are drinking? How often do you have six or more drinks on one Never 05/04/2019 occasion? Comment: Not asked Social Isolation Answer Date Recorded In a typical week, how many times do you talk on Twice a wee k 06/17/2020 the phone with family, friends, or neighbors? How often do you get together with friends or Never 06/17/2020 relatives? How often do you attend jew or rastafarian Never 05/04/2019 services? Do you belong to any clubs or organizations such No 06/17/2020 as jew groups, unions, fraternal or athletic groups, or [...] documented as of this encounter Consult Notes Evaristo Smith M.D. - 11/19/2017 1:00 PM [...] L4-5 disk herniation documented in this encounter Plan of Treatment Scheduled Procedures Name Priority Associated Diagnoses Date/Time DECOMPRESSION SPINE - POSTERIOR LUMBAR Lumbar Di sc Disorder documented as of this encounter Results Staphylococcus aureus PCR (11/19/2017 1:48 PM CDT) [facility] Method Time Signature Staphylococcus NARES 11/20/2017 [facility] aureus PCR BILATERAL 1:41 PM LABORATORIES - Specimen Source SWAB CDT [facility] Result Negative Not 11/20/2017 [facility] Applicable 1:41 PM LABORATORIES - CDT [facility] Comment: ----ADDITIONAL INFORMATION---- This test was developed and its performa nce characteristics determined by [facility] in a manner consistent with CLIA requirements. This test has not been cleared or approved by the [place] d and Drug Administration. Specimen Anatomical Collection Method Collection Time Receive d Time (Source) Location / / Volume Laterality Varies (Nares) 11/19/2017 1:48 PM 018 2:20 CDT PM CDT Evaristo Smith M.D. LAB MICROBIOLOGY - GENERAL O [place] Performing Organization Address City/State/ZIP Code Phon e Number [facility] LABORATORIES - [address] [place], [place] [address] [facility] documented in this encounter Visit Diagnoses Diagnosis Pain Leg Right - Primary documented in this encounter
--- OUTSIDE RECORDS SUMMARY | 2022-01-26 07:36 | XMS_ITS | Encounter Summary ---
:1980 Author Organization [facility] Address [address] [place] [address] Care Team Providers Name Role Phone Unavailable Primary Care Provider Unavailable Reason for Visit Auth/Cert Specialty Diagnoses / Procedures Referred By Contact Refer red To Contact Diagnoses Lumbar Disc Disorder unknown Procedures IL LMNOTOMY W DCMPRN 1 SPACE LUMB LAMINECTOMY LUMBAR WITH DISCECTOMY Referral ID Status Reason Start Date Expiration Date Visits Requ ested Visits Authorized [id number] 1 1 Encounter Details Date Type Department Care Team Description 11/29/2017 Surgery [facility] MAIN OR Elder, Kyle Brooks, Right L4-5 [address] [facility] Yefri, Ph.D. hemilaminectomy, [place], [place] [address] [facility] microdiskectomy. [address] [place], [place] [phone] (Wo rk) Social History Tobacco Use Types [...] 06/17/2020 relatives? How often do you attend yazidism or jewish Never 05/04/2019 services? Do you belong to any clubs or organizations such No 06/17/2020 as yazidism groups, unions, fraternal or athletic groups, or [...] Sign Reading Time Taken Comments Blood Pressure 152/106 11/29/2017 6:58 AM CDT Pulse 93 11/29/2017 6:58 AM CDT Temperature 36.6 ??C (97.9 ??F) 11/29/2017 6:58 AM CDT Respiratory Rate 18 11/29/2017 6:58 AM CDT Oxygen Saturation 97% 11/29/2017 6:58 AM CDT Inhaled Oxygen Concentration - - [...] Case IDs Date Procedure Surgeon Location Status [id number] 11/29/17 Right L4-5 hemilaminectomy, microdiskectomy. Kyle Briscoe [...] waking up in PACU. Satisfied with anesthetic. Evaristo Smith M.D. - 11/30/2017 7:33 AM [...] today. If there are questions please page [phone]. Lala Hernandez M.D. - 11/30/2017 6:41 AM CDT Neurosurgery [...] page the Neurosurgery Chief A service at [phone] with any questions or concerns. Lala Wright [...] page the Neurosurgery Chief A service at [phone] with any questions or concerns. Lala Wright [...] Plan is to DC tomorrow morning. Aryan Blari R.N. documented in this encounter OR Notes [...] irrigated. A x-ray was taken with a Somis 4 in the L4-5 disc space. Hemostasis [...] Kyle Briscoe M.D., Ph.D. [facility] [place] [facility] Dx Spine 1 View (11/29/2017 9:15 [...] for localization purposes. Kyle Briscoe M.D., Ph.D. [facility] [place] [facility] documented in this encounter Visit Diagnoses Diagnosis Lumbar Disc Disorder - Primary Lumbar Disc Disorder documented in this encounter Admitting Diagnoses Diagnosis Lumbar Disc Disorder documented in this encounter Administered Medications Inactive Administered Medications - up to 3 most recent administrations Medication Order MAR Action Action Date Dose Rate Site bacitracin-gentamicin 50,000 Given 11/29/2017 11:09 AM CDT 1,000 mL unit-80 mg/1000 mL in NaCl 0.9% irrigation irrigation, Once in surgery, OR use only, Starting on Wed11/29/17 at 0816, For 1 dose, Intra-Op, IRRIGATION USE ONLY ceFAZolin in dextrose (iso-os) IVPB 2 New [...] Given 11/29/2017 10:23 PM CDT 300 mg gelatin absorbable 12-7 mm sponge (GELFO AM) Given 11/29/2017 10:02 AM CDT 1 each As needed, Starting on Wed11/29/17 at 1002, Intra-Op hydrALAZINE tablet 25 mg (APRESOLINE) 25 mg, oral, Every 6 hours PRN, For SBP>160, Starting on Wed11/29/17 at 1421 labetalol tablet 50 mg (NORMODYNE) 50 mg, oral, Every 6 hours PRN, For SBP>160, hold for HR<60, Starting on Wed11/29/17 at 1421 lisinopril tablet 10 mg (PRINIVIL,ZESTRI L) Given [...] 1318 (New Bag - Provider: Ana Stapleton RMaryNMary) 1,000 mg, intravenous, at 400 mL/hr, Adm [...] in dextrose (iso-os) IVPB 2 g (ANCEF) 2132 (New Bag - Provider: Esperanza Oneal RMaryNMary) 0423 (New Bag - Provider: Esperanza mcdonald RMaryN.) 2 g, intravenous, at 200 mL/hr, Administ er over 30 Minutes, Every 8 hours, First dose on Wed11/29/17 at 2000, For 3 doses, Start within 8 hours of last IV dose. premix, Drug Monitoring Program: Pharmaci st to adjust medication order based on c omorbities and indication., Indications: Prophylaxis, medical ceFAZolin injection 2 g (ANCEF) (COMPLETED) 1778 (Given - Provider: Art Candelario M.D.)1144 (Given - Provider: Jaqueline Higgins APRN, FLORAL DEPARTMENT SPECIALIST) 2 g, intravenous, Once, Wed11/29/17 at 0 [...] polyethylene glycol powder packet 17 g (MIRALAX) 899 (Given - Provider: Lydia Inman R.N.) 17 g, oral, Daily, First dose on 11/08 at 0900, Hold for diarrhea Avoid mixing with starch-based thickened liquids. sennosides-docusate sodium 8.6-50 mg per tablet 2 tablet (SE NOKOT-S) 2222 (Given - Provider: Esperanza Oneal R.N.) 901 (Given - Provider: Lydia Inman R.N.) 2 [...] in surgery, OR use only , Starting on Wed11/29/17 at 0816, For 1 dose, Intra-Op, [...] Provider: Evaristo Smith M.D.) As needed, Starting on Wed11/29/17 at 1002, Intra-Op hydrALAZINE tablet 25 [...] at 1417 traMADol tablet 50 mg (ULTRAM) 1929 (Giv en - Provider: Esperanza Oneal, RMaryN.) 0678 (Given - Provider: Esperanza craven R.N.) 50 mg, oral, Every 8 hours PRN, severe p ain or score 7-10 of 10, Starting on Wed11/29/17 at 1858, Drug Monitoring Program: Pharmacist to adjust medication order based on comorbities and indication. documented in this encounter
--- OUTSIDE RECORDS SUMMARY | 2022-01-26 07:36 | XMS_ITS | Encounter Summary ---
:1980 Author Organization [facility] Address [address] [place] [address] Care Team Providers Name Role Phone Unavailable Primary Care Provider Unavailable Reason for Visit Appointment Request (Routine) - Closed Specialty Diagnoses / Procedures Referred By Contact Refer red To Contact Spine Alexis Cortez M.D. [address] [place] [address] Referral ID Status Reason Start Date Expiration Date Visits Requ ested Visits Authorized [id number] Closed 09/13/2017 03/12/2018 2 1 Encounter Details Date Type Department Care Team Description 11/19/2017 Comprehensive Visit Department of Megan Radicul opathy Lumbosacral (Primary Dx); Neurologic Surgery Ada Rayo, Herniated Disc Lumbosacral in [facility] [address] [facility] [place] [address] [place] [phone] [phone] Social History Tobacco Use Types Packs/Day Years [...] How often do you attend protestant or taoism Never 05/04/2019 services? Do you belong to [...] - Inhaled Oxygen Concentration - - Weight 116 kg (255 lb 11.7 oz) 11/19/2017 9:45 AM CDT Height 194 cm (6' 4.38) 11/19/2017 9:45 AM CDT Body Mass Index 30.82 11/19/2017 9:45 AM CDT documented in this encounter Consult Notes Ada Pandey P.A.-C. - 11/19/2017 10:00 AM CDT Referring Provider: Alexis Cortez M.D. [address] [address] Back and right leg pain History of Present Illness: Mr. Parisi is a pleasant 37 y.o. male from [place], [place] who is seen in consultation regarding at the request of Alexis Cortez M.D. He is accompanied by his . 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 The patient describes a history of back pain that started in 2011 that has waxed and waned over the years. 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 In April 2014 he experienced an exacerbation of his symptoms and underwent lumbar imaging that showed multilevel disc degeneration with herniation at L4-5 and L3-4. His pain again resolved after undergoing PT. He symptoms started to worsen in March 2017. In fact he has started using a cane forthe last 4-6 weeks, not for weakness, but for increased pain. Today he reports 20% back and 80% right leg pain. He denies any symptoms in the left lower back or leg. The back pain starts in the right gl uteal area and radiates to the hip, skip the upper leg and continues at the lateral lower aspect legcrossing over to the big toe. He feels like his great toe feels either cold or burning. Aggravating activities are sitting, standing and the worst of all as prolonged lying down. Alleviating activitiesare ice, massage and tramadol. The patient denies weakness, numbness, tingling, although he previously had some numbness in the right lower lumbar region. He denies bowel/bladder dysfunction, saddle anesthesia. He reports difficulty sleeping, weakening after 2 hr because of pain. He was also diagnosedwith severe obstructive sleep apnea and is not currently using his CPAP machine as he has been having difficulty getting it covered by insurance. The pain has affected his quality of life and he is also not able to be as active as he would like. The patient has tried PT, chiropractic, flexeril, tramadol. He underwent 3 lumbar epidural injections, most recently a right L5 transforaminal epidural performed on 11/16/2017. With the intralaminar injection the head earlier his back pain improved. The following portions of the patient's history were reviewed and updated as appropriate: allergies,current medications, family history, medical history, social history, surgical history and problem list. Review of systems: Musculoskeletal: Positive for back pain. Neurological: Positive for numbness or shooting pain in hands, arms, legs, or feet (right leg pain).Negative for loss of balance or tendency to fall easily and weakness in arms or legs. The following systems were negative: Constitutional, Respiratory, GI, Past Surgical History: Procedure Laterality Date ??? WISDOM TOOTH EXTRACTION Radiology: Outside MRI 07/07/2017 Multilevel disc degeneration with left foraminal narrowing at L3-4, L5-S1 L4-5 there is an extrusion on the right impinging the traversing right L5 nerve root. Physical Exam: General: Pleasant 37 y.o. male in no acute distress. Psych: Alert and oriented, appropriate mood and affect, recent remote memory grossly intact Head: Normocephalic, atraumatic Gait:non-antalgic. Able to toe, heel walk. Spine: Neurologic: Lower extremity reflexes 2+ throughout, with the exception of 3+ in the right lower extremity. 2-3 beat clonus bilaterally. Romberg and tandem walk normal. Decreased sensation in the right medial ft, great toe webspace and right lateral lower leg. Straight leg raise on the right reproducesbuttock pain Musculoskeletal: LE strength 5/5 throughout Palpation: No tenderness over the lumbar spinous processes, paraspinals, SI joints. I am unable to reproduce is normal pain. Impression: Encounter Diagnoses Name Primary? Radiculopathy Lumbosacral Yes ??? Herniated Disc Lumbosacral The patient was educated using the spine model, printed material, dermatome map, and radiologic images. Plan: 1. The patient has a disc herniation with foraminal stenosis affecting the right L5 nerve root that is consistent with his symptoms. He has failed conservative treatments including physical therapy, medications and injections, and may benefit from decompression. He is meeting with Dr. Smith this afternoon to discuss possible surgical treatment. The patient's questions were answered and they are encouraged to contact our office if further questions arise after the visit. documented in this encounter Plan of Treatment Scheduled Procedures Name Priority Associated Diagnoses Date/Time DECOMPRESSION SPINE - POSTERIOR LUMBAR Lumbar Di sc Disorder documented as of this encounter Visit Diagnoses Diagnosis Radiculopathy Lumbosacral - Primary Herniated Disc Lumbosacral documented in this encounter
--- OUTSIDE RECORDS SUMMARY | 2022-01-26 07:36 | XMS_ITS | Encounter Summary ---
:1980 Author Organization [facility] Address [address] [place] [address] Care Team Providers Name Role Phone Unavailable Primary Care Provider Unavailable Reason for Visit Outpatient (Routine) - Closed Specialty Diagnoses / Procedures Referred By Contact Refer red To Contact General Surgery Diagnoses Lumbar Disc Disorder Evaristo Smith M.D. [address] [address] Referral ID Status Reason Start Date Expiration Date Visits Requ ested Visits Authorized [id number] Closed 11/23/2017 11/23/2018 1 1 Encounter Details Date Type Department Care Team Description 11/26/2017 Comprehensive Visit Preoperative Evaristo Smith M.D . Preanesthetic Medical Exam (Primary Dx); Evaluation Center Razia Burnett M.D. Lumbar Disc Disorder in [address] [address] Social History Tobacco Use Types Packs/Day Years [...] 06/17/2020 relatives? How often do you attend anglican or moravian Never 05/04/2019 services? Do you belong to any clubs or organizations such No 06/17/2020 as anglican groups, unions, fraternal or athletic groups, or [...] Sign Reading Time Taken Comments Blood Pressure 153/97 11/26/2017 9:14 AM CDT Pulse 74 11/26/2017 9:14 AM CDT Temperature 35.4 ??C (95.7 ??F) 11/26/2017 9:14 AM CDT Respiratory Rate - - Oxygen Saturation 98% 11/26/2017 9:14 AM CDT Inhaled Oxygen Concentration - - Weight 114 kg (251 lb 8.7 oz) 11/26/2017 9:14 AM CDT Height 194.9 cm (6' 4.73) 11/26/2017 9:14 AM CDT Body Mass Index 30.04 11/26/2017 9:14 AM CDT documented in this encounter H&P Notes Razia Burnett M.D. - 11/26/2017 9:15 AM CDT Preoperative Medical Evaluation Patient Name: Tejas Parisi Age: 37 y.o. Date of : 1980 Patient [address]: [address] [place] [id number] Primary Care Provider: No primary care provider on file. Referring Physician: Evaristo Smith M.D. Pending Procedure: Lumbar Laminectomy with Discectomy Surgeon: Dr. Briscoe and Dr. Smith The following portions of the patient's history were reviewed and updated as appropriate: current medications, family history and problem list. Subjective: Tejas Parisi is a 37 y.o. male with a history of right lumbar radiculopathy and TOM who presents to [facility] for preoperative evaluation prior to laminectomy and discectomy. He has never had anesthesia before. He denied family members having a history of anesthetic complications or bleeding disorders. He easily achieves > 4 METS by going up stairs and vacuuming his house, despite back/leg pain, and he denies CP/SOB with activity. Of note, he is aware he has TOM and does want to be on a CPAP, however for insurance reasons he has not yet obtained a CPAP machine. Preoperative assessment questions reviewed and completed Constitutional: Positive for fatigue. Gastrointestinal: Positive for constipation and heartburn. Musculoskeletal: Positive for arthralgias, back pain, pain or stiffness in the joints and muscle pain/stiffness. Neurological: Positive for numbness or shooting pain in hands, arms, legs, or feet and excessive daytime sleepiness. Psychiatric/Behavioral: Positive for excessive daytime sleepiness/tiredness. The following systems were negative: Skin, Eyes, ENT, CV, Respiratory, , Hematologic OBJECTIVE PHYSICAL EXAMINATION Airway (HEENT) Mallampati: I TM Distance: >3 FB Neck ROM: Full Cardiovascular Rhythm: Regular Rate: Normal Cardiovascular Assessment: Normal Functional Capacity: >4 METS Pulmonary Pulmonary Assessment: Clear Neurological Neurologic Assessment: Alert and oriented X 3 Dental Dental Assessment: Dentition intact General / Constitutional Constitutional Assessment: Normal Assessment / Plan Patient medically optimized for planned procedure: Yes Surgery Specific Risk Classification: Low Risk / Elevated Risk: Low Risk Further Recommendations: None Past Medical History: Diagnosis Date ??? Hyperlipidemia ??? Hypertension NOS ??? Obstructive Sleep Apnea Adult No CPAP used Past Surgical History: Procedure Laterality Date ??? WISDOM TOOTH EXTRACTION Current Outpatient Medications Medication Sig ??? acetaminophen (TYLENOL) 500 mg tablet Take 1,000 mg by mouth every 6 (six) hours as needed for pain. ??? fenofibrate (LOFIBRA) 160 mg tablet Take 160 mg by mouth every morning. ??? gabapentin (NEURONTIN) 300 mg capsule 1 capsule 3 (three) times a day. ??? lisinopril (PRINIVIL,ZESTRIL) 10 mg tablet Take 10 mg by mouth at bedtime. ??? omega-3 acid ethyl esters (LOVAZA) 1 gram capsule Take 2 g by mouth every morning. ??? traMADol (ULTRAM) 50 mg tablet Take 50 mg by mouth 3 (three) times a day. No Known Allergies #1 Lumbar Disc Disorder #2 Preanesthetic Medical Exam #3 Obstructive Sleep Apnea Adult #4 Hypertension NOS #5 Hyperlipidemia #1 Preoperative exam prior to lumbar laminectomy and discectomy Mr. Parisi has sufficient exercise tolerance, and is able to achieve >4 METs. He denies problems with chest pain, shortness of breath, or dyspnea on exertion. He is medically optimized for the above stated procedure. #2 TOM, untreated Recommend avoiding oversedation and excessive narcotic use. 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 Patient and his describe a history of multiple narcotic medications not working for him, including oxycodone. He was not aware of a diagnosis of ultrarapid metabolizer and is interested in obtaining lab work to see if this is something that he has, as it could be used as a guide for future narcotic prescribing. TESTS & LABORATORY WORKUP: None OTHER ANESTHESIA CONSIDERATIONS: Caffeine use: Yes, describe: 2-3 cups coffee every day Alcohol use: No Nicotine use: No History of prior problems with anesthesia: Never had anesthesia before Previous airway documentation: None MEDICATION INSTRUCTIONS: Medications to hold on the day of surgery: Lisinopril Medications to take on the day of surgery: Gabapentin and tramadol Anesthetic plan was discussed in general terms. All final anesthetic management decisions will be deferred to the anesthesiologist that is taking care of the patient on the day of surgery. NPO guidelines reviewed. Medications reviewed with patient. All questions satisfactorily answered. Case discussed with [facility] physician anesthesiologist, and agreed with the above plan. Razia Burnett MD Department of Anesthesiology & Perioperative Medicine [place] [phone] documented in this encounter Plan of Treatment Scheduled Procedures Name Priority Associated Diagnoses Date/Time DECOMPRESSION SPINE - POSTERIOR LUMBAR Lumbar Di sc Disorder documented as of this encounter Visit Diagnoses Diagnosis Preanesthetic Medical Exam - Primary Lumbar Disc Disorder documented in this encounter
--- OUTSIDE RECORDS SUMMARY | 2022-01-26 07:36 | XMS_ITS | Encounter Summary ---
:1980 Author Organization [facility] Address [address] [place] [address] Care Team Providers Name Role Phone Unavailable Primary Care Provider Unavailable Reason for Visit Reason Onset Date Comments Pre-visit Testing Orders 09/13/2017 Encounter Details Date Type Department Care Team Description 09/13/2017 Clinical Department of Prescheduling, Pre-visit Te sting Communication Spine in Provider Orders [place], [place] [address] [place] [address] Social History Tobacco Use Types Packs/Day Years [...] 06/17/2020 relatives? How often do you attend caodaism or episcopal Never 05/04/2019 services? Do you belong to any clubs or organizations such No 06/17/2020 as caodaism groups, unions, fraternal or athletic groups, or [...] this encounter Miscellaneous Notes Telephone Encounter - Ana Paula Mueller - 09/13/2017 12:42 PM CDT [facility] Question Set documented in this encounter Plan of Treatment Scheduled Procedures Name Priority Associated Diagnoses Date/Time DECOMPRESSION SPINE - POSTERIOR LUMBAR Lumbar Di sc Disorder documented as of this encounter Visit Diagnoses Not on filedocumented in this encounter
--- OUTSIDE RECORDS SUMMARY | 2022-01-26 07:36 | XMS_ITS | Encounter Summary ---
:1980 Author Organization [facility] Address [address] [place] [address] Care Team Providers Name Role Phone Unavailable Primary Care Provider Unavailable Reason for Visit Reason Comments Patient Education Appointment Request (Routine) - Closed Specialty Diagnoses / Procedures Referred By Contact Refer red To Contact Patient Education Referral ID Status Reason Start Date Expiration Date Visits Requ ested Visits Authorized [id number] Closed 11/26/2017 11/26/2018 1 1 Encounter Details Date Type Department Care Team Description 11/26/2017 Education Department of Patient Jonny Vega Education in [address] [address] [place] [address] [place] [phone] Social History Tobacco Use Types Packs/Day [...] How often do you attend orthodox or presybeterian Never 05/04/2019 services? Do you belong to [...]
--- OUTSIDE RECORDS SUMMARY | 2022-01-26 07:36 | XMS_ITS | Encounter Summary ---
:1980 Author Organization [facility] Address [address] [place] [address] Care Team Providers Name Role Phone Unavailable Primary Care Provider Unavailable Reason for Visit Auth/Cert Specialty Diagnoses / Procedures Referred By Contact Refer red To Contact Diagnoses Lumbar Disc Disorder unknown Procedures NE LMNOTOMY W DCMPRN 1 SPACE LUMB LAMINECTOMY LUMBAR WITH DISCECTOMY Referral ID Status Reason Start Date Expiration Date Visits Requ ested Visits Authorized [id number] 1 1 Encounter Details Date Type Department Care Team Description 11/29/2017 Anesthesia Event RST ROMB MAIN OR Ike Mcdonald Jr., M.D. [address] [facility] Casie Moseley M.D. [address] [place] [id number] [place] [address] Anesthesia Record Procedure Summary Procedure Name Responsible Anesthesia Start Anesthesia Stop Time Anesthesiologist Time Right L4-5 Ike Mcdonald Jr., 11/29/17 0809 11/29/17 1229 Yefri richards microdiskectomy. (Right) Events Date Time Event Comment 11/29/2017 0809 An Start Machine/Equipmen t Checked Infection Precautions Foll owed Procedure/Site Verified NPO Sta tus Verified Supine Standard ASA Mon itors Applied 0818 An Induction 0825 An Intubation 0825 Turnover to Proceduralist 0852 Quick Note CO2 absorbent ch anged 1210 Turnover to ANE Staff 1219 Airway Removal Criteria Met 1219 Extubation/Airway Removed 1221 an stop data 1229 An End I completed my h andoff to the receiving staff during [facility] we 1. Identified the patient 2. Ident ified the responsible provider 3. Revi ewed the pertinent medical history 4. Discussed the surgical course 5. Review ed intra-op anesthesia management and i ssues during anesthesia 6. Set expectati ons for post-procedure period 7. Allowe d opportunity for questions and ac knowledgement of understanding. Name Total fentanyl injection 50 mcg/mL 100 mcg lidocaine 2% (mg) injection 40 mg propofol 10 mg/mL 250 mg ondansetron 4 mg/2 mL injection 4 mg phenylephrine 100 mcg/mL injection 200 mcg vecuronium 10 mg injection 18 mg dexamethasone 4 mg/mL injection 4 mg ceFAZolin injection 2 g (ANCEF) 4 g HYDROmorphone 2 mg/mL injection 2 mg glycopyrrolate 0.2 mg/mL injection 1 mg neostigmine 1 mg/mL injection 5 mg ketamine 10 mg/mL injection 10 mg Lactated Ringers Free Drip 1,600 mL Agents No agents on file. Blood No blood administrations on file. Lines, Drains, and Airways Type Details Placement Removal Peripheral IV Placement Date: 11/29/17; 11/29/17722 by 11/30 0000 by Placement Time: 722; Leta White Sam antha S, Catheter Size: 20 G; R.N. Orientation: Left; Location: Hand; Site Prep: Chlorhexidine (Preferred); Removal Date: 11/30/17; Removal Reason: No longer in place ETT Placement Date: 11/29/17; 11/29/17 0825 by 11/29 1219 by Placement Time: 0825 Casie Moseley M.D. Huang, Jeffrey, M.D. (created via procedure documentation); Mask Ventilation: Difficult mask (ie. two-handed); Type: Standard ETT; Single Lumen Tube Size: 7 mm; Cuffed: Yes; Blade Size: Velasquez 2; Location: Oral; Removal Date: 11/29/17; Removal Time: 1219 (RETIRED) Incision 11/29/17; 913; Back; 11/29/17 0914 by 1418 by Right; STRP STRS SKBENTONLSR Mary Grace Jenkins, [facility] NWVN 4X0.5 (x1), ADH MSL M.S.N., R.N. d, [place] LQ SKN 2/3ML (x1), DRSG Automate d Batch Job PRM WND NONADH X6 (x1); 01/28/21 (Removed by background completion utility); 1418 (Removed by background completion utility) documented in this encounter Social History Tobacco Use Types Packs/Day Years [...] 06/17/2020 relatives? How often do you attend christian or tenriism Never 05/04/2019 services? Do you belong to any clubs or organizations such No 06/17/2020 as christian groups, unions, fraternal or athletic groups, or [...] on file documented as of this encounter OR Notes Anesthesia Postprocedure Evaluation - Omi Moreno M.D. - 11/29/2017 1:33 PM CDT Patient: Tejas Parisi Procedure Summary Date: 11/29/17 Room / Location: [address] / [facility] in [place], [place] Anesthesia Start: 08 Anesthesia Stop: 122 Procedure: Right L4-5 hemilaminectomy, microdiskectomy. (Right ) Diagnosis: Lumbar Disc Disorder (Lumbar Disk Disorder [M51.9].) Provider: Kyle Briscoe M.D., Ph.D. Responsible Provider: Ike Mcdonald Jr., M.D. Anesthesia Type: general ASA Status: 2 Anesthesia Type: general Last vitals BP 128/72 (11/29/17 1300) Temp 36.9 ??C (11/29/17 1230) Pulse (!) 111 (11/29/17 1300) Resp (!) 9 (11/29/17 1300) SpO2 97 % (11/29/17 1300) Anesthesia Post Evaluation 11/29/2017 1:33 PM Patient Disposition: general care unit Cardiovascular status: hemodynamics (HR & BP) acceptable Respiratory status: patent airway with spontaneous effort Temperature: normothermic Oxygen requirements: nasal cannula Level of consciousness: awake Pain score: pain adequately controlled and/or at baseline Post Op nausea/vomiting: none Hydration status: euvolemic Comments: Anesthesia Procedure Notes - Casie Moseley M.D. - 11/29/2017 8:45 AM CDT Associated Order(s): AIRWAY MANAGEMENT Airway Date/Time: 11/29/2017 8:25 AM Patient location during procedure: OR / Procedure Area Performed by: CASIE MOSELEY Authorized by: IKE MCDONALD JR. Pre procedure details Pre evaluation for airway management: procedure Urgency: elective Preop assessment of probable difficulty: no difficulty anticipated Sedation level: anesthetized Preoxygenation: bag valve mask Procedure details Mask difficulty assessment: difficult mask (i.e.two-handed) Final airway type: direct laryngoscopy, intubation Laryngeal Manipulation: no Final airway difficulty of direct laryngoscopy (DL): 0-easy Final best view of glottic structures - Cormack/Lehane Score: grade 2A ETT location: oral Adult blade type: Velasquez 2 Adult tube size: 7 Adult ETT distance at teeth/gum: 24 Oral tube type: standard ETT Cuffed: yes Number of attempt to successful placement: 1 Airway confirmation: bilateral breath sounds, positive ETCO2 and bilateral chest rise Other previous techniques attempted: none Post procedure details Procedure outcome: successful Airway event: no complications Additional Comments Roberts, 2-handed mask with oral airway due to configuration of OR (anesthesia machine located to the left of the patient during induction). Likely would be easy 1-handed mask with oral airway with normal OR setup. Easy DL. Anesthesia Preprocedure Evaluation - Ike Mcdonald Jr., M.D. - 11/29/2017 5:46 AM CDT Anesthesia Pre-Evaluation Pertinent components of the patient's history including current problem list, medical history, surgical history, family history, social history, medications and allergies were reviewed and updated as appropriate. The patient was examined and the Pre-op diagnosis, planned procedure, and H&P were reviewed and remain unchanged. PROBLEM LIST Relevant Problems CV (+) Hypertension NOS RESP (+) Obstructive Sleep Apnea Adult Other (+) Hyperlipidemia (+) Lumbar Disc Disorder Procedure(s): Right L4-5 hemilaminectomy, microdiskectomy. (Right) Surgeon(s) and Role: * Kyle Briscoe M.D., Ph.D. - Primary * Evaristo Smiht M.D. - Chief Resident - Performing Medications the Patient Reported Taking acetaminophen (TYLENOL) 500 mg tablet fenofibrate (LOFIBRA) 160 mg tablet gabapentin (NEURONTIN) 300 mg capsule lisinopril (PRINIVIL,ZESTRIL) 10 mg tablet omega-3 acid ethyl esters (LOVAZA) 1 gram capsule traMADol (ULTRAM) 50 mg tablet ALLERGIES No Known Allergies SOCIAL HISTORY Social History Substance Use Topics ??? Smoking status: Never Smoker ??? Smokeless tobacco: Never Used ??? Alcohol use No Comment: 2-3 mugs coffee daily OBJECTIVE VITAL SIGNS There were no vitals filed for this visit. There is no height or weight on file to calculate BMI. LABS OBJECTIVE PHYSICAL EXAMINATION Airway (HEENT) Mallampati: II TM Distance: >3 FB Neck ROM: Full Cardiovascular Rhythm: Regular Rate: Normal Cardiovascular Assessment: Normal Functional Capacity: >4 METS Pulmonary Pulmonary Assessment: Clear Neurological Normal Dental Normal General / Constitutional Normal ASSESSMENT / PLAN ANESTHESIA PLAN ASA: 2 Anesthesia Plan: general Tejas Parisi is a 37 y.o. male who presents for right L4-5 hemilaminectomy and microdiskectomy.Plan for GETA with PIV x 1. Standard monitors. IV induction. Volatile maintenance. Antiemesis with dexamethasone and ondansetron. Analgesia with premed acetaminophen and opioids. -Casie Moseley MD (CA-2). Patient seen and allergies reviewed; anesthesia plan and risks discussed directly with patient / legal guardian, or through an caterpillar tractor operator; patient evaluated and approved for anesthesia / sedation. Use of blood products discussed with patient who consented to blood products. documented in this encounter Plan of Treatment Scheduled Procedures Name Priority Associated Diagnoses Date/Time DECOMPRESSION SPINE - POSTERIOR LUMBAR Lumbar Di sc Disorder documented as of this encounter Procedures Procedure Name Priority Date/Time Associated Diagnosis Comme nts AIRWAY MANAGEMENT Routine 11/29/2017 8:45 AM Resu lts for this CDT procedure are i n the results section. documented in this encounter Results AIRWAY MANAGEMENT (11/29/2017 8:45 AM CDT) Narrative Casie Moseley M.D. - 11/29/2017 8:45 A M CDT Casie Moseley M.D. ? 11/29/2017 ??8:47 AM Airway Date/Time: 11/29/2017 8:25 AM Patient location during procedure: OR / Procedure Area Performed by: CASIE MOSELEY Authorized by: IKE MCDONALD JR. Pre procedure details ?? Pre evaluation for airway management : procedure ?? Urgency: elective ?? Preop assessment of probable difficu lty: no difficulty anticipated ?? Sedation level: anesthetized ?? Preoxygenation: bag valve mask Procedure details ??Mask difficulty assessment: difficult mask (i.e.two-handed) ?? Final airway type: direct laryngosco py, intubation Laryngeal Manipulation: no ? Final airway difficulty of direct la ryngoscopy (DL): 0-easy ?? Final best view of glottic structure s - Cormack/Lehane Score: grade 2A ?? ETT location: oral ?? Adult blade type: Velasquez 2 ?? Adult tube size: 7 ?? Adult ETT distance at teeth/gum: 24 ?? Oral tube type: standard ETT ?? Cuffed: yes ?? Number of attempt to successful plac ement: 1 ?? Airway confirmation: bilateral breat h sounds, positive ETCO2 and bilateral chest rise ?? Other previous techniques attempted: none Post procedure details ?? Procedure outcome: successful ? Airway event: no complications Additional Comments Roberts, 2-handed mask with oral airway du e to configuration of OR (anesthesia machine located to the left of the patient during induction). Likely would be easy 1-handed mask with oral airway with normal OR setup. Easy DL. ?? Procedure Note Casie Moseley M.D. - 11/29/2017 8:45 A M CDT Airway Date/Time: 11/29/2017 8:25 AM Patient location during procedure: OR / Procedure Area Performed by: CASIE MOSELEY Authorized by: IKE MCDONALD JR. Pre procedure details Pre evaluation for airway management: p rocedure Urgency: elective Preop assessment of probable difficulty : no difficulty anticipated Sedation level: anesthetized Preoxygenation: bag valve mask Procedure details Mask difficulty assessment: difficult m ask (i.e.two-handed) Final airway type: direct laryngoscopy, intubation Laryngeal Manipulation: no Final airway difficulty of direct laryn goscopy (DL): 0-easy Final best view of glottic structures - Cormack/Lehane Score: grade 2A ETT location: oral Adult blade type: Velasquez 2 Adult tube size: 7 Adult ETT distance at teeth/gum: 24 Oral tube type: standard ETT Cuffed: yes Number of attempt to successful placeme nt: 1 Airway confirmation: bilateral breath s ounds, positive ETCO2 and bilateral chest rise Other previous techniques attempted: no ne Post procedure details Procedure outcome: successful Airway event: no complications Additional Comments Roberts, 2-handed mask with oral airway du e to configuration of OR (anesthesia machine located to the left of the patient during induction). Likely would be easy 1-handed mask with oral airway with normal OR setup. Easy DL. Ike Mcdonald Jr., M.D. ANESTHESIA ORDERABLES documented in this encounter Visit Diagnoses Not on filedocumented in this encounter Administered Medications Inactive Administered Medications - up to 3 most recent administrations Medication Order MAR Action Action Date Dose Rate Site ceFAZolin injection 2 g (ANCEF) Given 11/29/2017 11:44 AM CDT 2 g 2 g, intravenous, Once, On Wed11/29/17 at 0830, For 1 dose, Intra-Op, Preoperatively within 1 hour prior to surgical incision [place] IV push over 3 minutes. Add 5 mL NS to 1 gram vial for a final concentration of 200 mg/mL., Drug Monitoring Program: Pharmacist to adjust medication order based on comorbities and indication., Indications: Prophylaxis, surgical Given 11/29/2017 8:42 AM CDT 2 g dexamethasone injection (DECADRON) Given 11/29/2017 8:42 AM CDT 4 mg As needed, Starting on Wed11/29/17 at 0842, Anesthesia Intra-op fentaNYL injection (SUBLIMAZE) Given 11/29/2017 8:18 AM CDT 100 mcg intravenous, As needed, severe pain or score 7-10 of 10, Starting on Wed11/29/17 at 0818, Anesthesia Intra-op glycopyrrolate injection (ROBINUL) Given 11/29/2017 11:26 AM CDT 1 mg As needed, Starting on Wed11/29/17 at 1126, Anesthesia Intra-op HYDROmorphone injection (DILAUDID) Given 11/29/2017 11:20 AM CDT 0.2 mg As needed, severe pain or score 7-10 of 10, Starting on Wed11/29/17 at 0859, Anesthesia Intra-op Given 11/29/2017 11:02 AM CDT 0.2 mg Given 11/29/2017 10:48 AM CDT 0.2 mg ketamine injection (KETALAR) Given 11/29/2017 11:10 AM CDT 10 mg As needed, Starting on Wed11/29/17 at 1110, Anesthesia Intra-op lactated ringers New Bag 11/29/2017 9:30 AM CDT intravenous, Continuous Infusion: Per Instructions PRN, Starting on Wed11/29/17 at 0809, Anesthesia Intra-op New Bag 11/29/2017 8:09 AM CDT lidocaine (PF) (cardiac) injection Given 11/29/2017 8:18 AM CDT 40 mg intravenous, As needed, Starting on Wed11/29/17 at 0818, Anesthesia Intra-op neostigmine methylsulfate injection Given 11/29/2017 11:27 AM CD T 5 mg (BLOXIVERZ) As needed, reversal, Starting on Wed11/29/17 at 1127, Anesthesia Intra-op ondansetron (PF) injection (ZOFRAN) Given 11/29/2017 11:27 AM CDT 4 mg intravenous, As needed, nausea, vomiting, Starting on Wed11/29/17 at 1127, Anesthesia Intra-op phenylephrine injection Given 11/29/2017 10:22 AM CDT 100 mcg intravenous, As needed, Starting on Wed11/29/17 at 0945, Anesthesia Intra-op Given 11/29/2017 9:45 AM CDT 100 mcg propofol injection (DIPRIVAN) Given 11/29/2017 8:18 AM CDT 250 mg intravenous, As needed, Starting on Wed11/29/17 at 0818, Anesthesia Intra-op vecuronium injection (NORCURON) Given 11/29/2017 10:54 AM CDT 1 mg As needed, Starting on Wed11/29/17 at 0819, Anesthesia Intra-op Given 11/29/2017 10:37 AM CDT 1 mg Given 11/29/2017 10:21 AM CDT 2 mg documented in this encounter
--- OUTSIDE RECORDS SUMMARY | 2022-01-26 07:36 | XMS_ITS | Encounter Summary ---
:1980 Author Organization [facility] Address [address] [place] [address] Care Team Providers Name Role Phone Unavailable Primary Care Provider Unavailable Reason for Visit Reason Onset Date Comments Communication 11/22/2017 Encounter Details Date Type Department Care Team Description 11/22/2017 Clinical Communication Department of Evaristo Smith mmunication Neurologic Surgery in Yefri Brooks [place], [place] [address] [place] [address] Social History Tobacco Use Types Packs/Day Years [...] How often do you attend samaritan or taoism Never 05/04/2019 services? Do you [...] this encounter Miscellaneous Notes Telephone Encounter - Tim Matthews R.N. - 11/22/2017 10:10 AM CDT Any Surgical Dates? Telephone Encounter - Pa Galicia - 11/22/2017 8:15 AM CDT Pauly Tim, Pt's called in and they want to schedule surgery. Could you please call them back to set up surgery? Thank You documented in this encounter Plan of Treatment Scheduled Procedures Name Priority Associated Diagnoses Date/Time DECOMPRESSION SPINE - POSTERIOR LUMBAR Lumbar Di sc Disorder documented as of this encounter Visit Diagnoses Not on filedocumented in this encounter
--- OUTSIDE RECORDS SUMMARY | 2022-01-26 07:36 | XMS_ITS | Encounter Summary ---
:1980 Author Organization [facility] Address [address] [place] [address] Care Team Providers Name Role Phone Unavailable Primary Care Provider Unavailable Encounter Details Date Type Department Care Team Description 11/23/2017 Documentation Department of Neurologic Domingan, Tim Chinchilla R.N. Surgery in [place], [address] [place] [address] [address] [facility] [address] [place] [address] [phone] Social History Tobacco Use Types Packs/Day Years [...] 06/17/2020 relatives? How often do you attend advent or lutheran Never 05/04/2019 services? Do you belong to any clubs or organizations such No 06/17/2020 as advent groups, unions, fraternal or athletic groups, or [...] documented as of this encounter Progress Notes Tim Matthews R.N. - 11/23/2017 10:28 AM CDT Pt sent [id number] Checklist for surgical patients, and MC 4374 with two packets of Hibiclens soap. Instructed patient on use. Patient was assessed per the Pre- operative Staphylococcus aureus screening protocol #[id number]. Patient meets inclusion criteria. Patient had no exclusion criteria. Surgery scheduled for (11/29/2017). Lab results came back negative. documented in this encounter Plan of Treatment Scheduled Procedures Name Priority Associated Diagnoses Date/Time DECOMPRESSION SPINE - POSTERIOR LUMBAR Lumbar Di sc Disorder documented as of this encounter Visit Diagnoses Not on filedocumented in this encounter
--- OUTSIDE RECORDS SUMMARY | 2022-01-26 07:36 | XMS_ITS | Encounter Summary ---
:1980 Author Organization [facility] Address [address] [place] [address] Care Team Providers Name Role Phone Unavailable Primary Care Provider Unavailable Encounter Details Date Type Department Care Team Description 11/19/2017 Hospital Encounter Department of Renard Guzman Radiology, Abe Caballero [facility], [address] [place] [address] [place] [address] [place], [place] [phone] (Work) [phone] Social History Tobacco Use Types Packs/Day Years [...] 06/17/2020 relatives? How often do you attend rastafari or lutheran Never 05/04/2019 services? Do you belong to any clubs or organizations such No 06/17/2020 as rastafari groups, unions, fraternal or athletic groups, or [...] a day. documented as of this encounter Plan of Treatment Scheduled Procedures Name Priority Associated Diagnoses Date/Time DECOMPRESSION SPINE - POSTERIOR LUMBAR Lumbar Di sc Disorder documented as of this encounter Procedures Procedure Name Priority Date/Time Associated Diagnosis Comme nts DX LUMBAR SPINE RAD - Routine 11/19/2017 7:51 Radiculopathy Results for this 2-3 VIEWS (most inpatients AM CDT Lumbosacral procedure a re in and all the results outpatients) section. documented in this encounter Results DX Lumbar Spine 2-3 Views (11/19/2017 7:51 AM CDT) Anatomical Region Laterality Modality Lumbar Spine, Musculoskeletal RST LOS N/A Di gital Radiography Specimen (Source) Anatomical Collection Method Collection Time Re ceived Time Location / / Volume Laterality 11/19/2017 7:53 AM CDT Impressions 11/19/2017 7:55 AM CDT IMPRESSION: ??Lumbar curve convex to the left. Lumbar facet arthritis. Slight degenerative narrowing of the L4 intersp padmini. Lumbar spine otherwise negative. Narrative 11/19/2017 7:55 AM CDT EXAM: ??DX LUMBAR SPINE 2-3 VIEWS Procedure Note Vic Olivera M.D. - 11/19/2017Forma tting of this note might be different from the original. EXAM: DX LUMBAR SPINE 2-3 VIEWS IMPRESSION: Lumbar curve convex to the l eft. Lumbar facet arthritis. Slight degenerative narrowing of the L4 intersp padmini. Lumbar spine otherwise negative. Ada Guzman P.A.-C. [facility] OCEDURES documented in this encounter Visit Diagnoses Diagnosis Radiculopathy Lumbosacral documented in this encounter
--- OUTSIDE RECORDS SUMMARY | 2022-01-26 07:36 | XMS_ITS | Encounter Summary ---
:1980 Author Organization [facility] Address [address] [place] [address] Care Team Providers Name Role Phone Unavailable Primary Care Provider Unavailable Encounter Details Date Type Department Care Team Description 10/19/2017 Orders Only Department of Megan, Radiculopathy Neurologic Surgery in Ada Rayo P.A.-C. Lumbosacral (Primary [place], [place] [address] [facility]) [address] [place] [phone] Social History Tobacco Use Types Packs/Day Years [...] 06/17/2020 relatives? How often do you attend alevism or amish Never 05/04/2019 services? Do you belong to any clubs or organizations such No 06/17/2020 as alevism groups, unions, fraternal or athletic groups, or [...] documented as of this encounter Results DX Lumbar Spine 2-3 [...] Lumbar spine otherwise negative. Ada Guzman P.A.-C. [facility] [place] OCEDURES documented in this encounter Visit Diagnoses Diagnosis Radiculopathy Lumbosacral - Primary Radiculopathy Lumbosacral documented in this encounter
--- OUTSIDE RECORDS SUMMARY | 2022-01-26 07:36 | XMS_ITS | Encounter Summary ---
:1980 Author Organization [facility] Address [address] [place] [address] Care Team Providers Name Role Phone Unavailable Primary Care Provider Unavailable Reason for Referral Outpatient (Routine) - Closed Specialty Diagnoses / Procedures Referred By Contact Refer red To Contact General Surgery Diagnoses Lumbar Disc Disorder Evaristo Smith M.D. [address] [address] Referral ID Status Reason Start Date Expiration Date Visits Requ ested Visits Authorized [id number] Closed 11/23/2017 11/23/2018 1 1 Scheduling Instructions URGENT. Encounter Details Date Type Department Care Team Description 11/23/2017 Orders Only Department of Domingan, Tim Chinchilla, Lumbar Dis c Disorder Neurologic Surgery in R.N. (Primary Dx) [address] [place] [phone] Social History Tobacco Use Types Packs/Day Years [...] 06/17/2020 relatives? How often do you attend oriental orthodox or uatsdin Never 05/04/2019 services? Do you belong to any clubs or organizations such No 06/17/2020 as oriental orthodox groups, unions, fraternal or athletic groups, [...] Name Type Priority Associated Order Schedule Diagnoses Preoperative Outpatient Referral Routine Lumbar Disc Expected : Evaluation MARII Disorder 11/23/2017 Consult (Clinic) (Approximat e), Expires: 11/23/2020 documented as of this encounter Visit Diagnoses Diagnosis Lumbar Disc Disorder - Primary documented in this encounter
--- OUTSIDE RECORDS SUMMARY | 2022-01-26 07:36 | XMS_ITS | Encounter Summary ---
:1980 Author Organization [facility] Address [address] [place] [address] Care Team Providers Name Role Phone Unavailable Primary Care Provider Unavailable Encounter Details Date Type Department Care Team Description 11/19/2017 Hospital Encounter Department of Evaristo Smith Pai n Leg Right Laboratory Medicine Yefri and Pathology, [facility], in [place], [place] [address] [place] [address] Social History Tobacco Use Types Packs/Day Years [...] How often do you attend caodaism or gnosticist Never 05/04/2019 services? Do you belong to [...] Procedure Name Priority Date/Time Associated Comments Diagnosis STAPHYLOCOCCUS AUREUS, Routine 11/19/2017 1:48 PM Pain Leg Rig ht Results for this PCR CDT procedure are i n the results section. documented in this encounter Results Staphylococcus aureus PCR (11/19/2017 1:48 PM CDT) [facility] Method Time Signature Staphylococcus NARES 11/20/2017 [facility] aureus PCR BILATERAL 1:41 PM LABORATORIES - Specimen Source SWAB CDT [facility] Result Negative Not 11/20/2017 [facility] Applicable 1:41 PM LABORATORIES - CDT [facility] Comment: ----ADDITIONAL INFORMATION---- This test was developed and its performa nce characteristics determined by [facility] in a manner consistent with CLIA [...] Organization Address City/State/ZIP Code Phon e Number [facility] - [address] [place], [place] [address] [facility] documented in this encounter Visit Diagnoses Diagnosis Pain Leg Right documented in this encounter
--- OUTSIDE RECORDS SUMMARY | 2022-01-26 07:36 | XMS_ITS | Encounter Summary ---
:1980 Author Organization [facility] Address [address] [place] [address] Care Team Providers Name Role Phone Unavailable Primary Care Provider Unavailable Encounter Details Date Type Department Care Team Description 10/23/2017 Abstract DATA ABSTRACTION Provider, Historical Social History Tobacco Use Types Packs/Day Years [...] 06/17/2020 relatives? How often do you attend confucianist or mormonism Never 05/04/2019 services? Do you belong to any clubs or organizations such No 06/17/2020 as confucianist groups, unions, fraternal or athletic groups, or [...]
[2022-01-26 10:15] LABS: Chloride* 103 mmol/L (96-114); Potassium* 4.1 mmol/L (3.6-5.1); Sodium* 137 mmol/L (135-149)
[2022-01-26 10:17] LABS: Cholesterol* 251 mg/dL (90-199)
[2022-01-26 10:18] LABS: Alanine Aminotransferase* 58 U/L (4-50); Blood Urea Nitrogen* 15 mg/dL (5-24); Calcium* 9.6 mg/dL (8.4-10.6); Carbon Dioxide* 25 mmol/L (20-32); Creatinine* 0.8 mg/dL (0.5-1.5); Estimated Glomerular Filt Rate 113 ml/min; Glucose* 164 mg/dL (60-115)
[2022-01-26 10:19] LABS: HDL Cholesterol* 35 mg/dL (>=40); LDL Cholesterol Calculated 126 mg/dL (<100)
[2022-01-26 10:26] LABS: Triglycerides* 450 mg/dL (40-149)
== END 2022-01-26 17:07 | disposition home or self-care (01) ==
PROVIDERS: PCP Family Medicine; Visit Provider Family Medicine
DX: I10 Essential (primary) hypertension (principal); E78.5 Hyperlipidemia, unspecified; E11.9 Type 2 diabetes mellitus without complications; M17.11 Unilateral primary osteoarthritis, right knee
CPT/HCPCS: 80048; 80061; 84460

== ENCOUNTER 2022-08-05 08:10 | Outpatient (CLI) | payer OTHER, SELFPAY | END 2022-08-05 08:11 | disposition home or self-care (01) | LOC: NFLDREF 08-06 01:31 | PROVIDERS: PCP Family Medicine; Referring Provider Family Medicine; Visit Provider Family Medicine | DX: R73.03 Prediabetes (principal); Z13.6 Encounter for screening for cardiovascular disorders | CPT/HCPCS: 80061 ==

== ENCOUNTER 2022-11-16 16:34 | Outpatient (CLI) | payer OTHER, SELFPAY ==
[2022-11-16 22:45] LABS: Vitamin B12* 344 pg/mL (243-894)
== END 2022-11-16 16:35 | disposition home or self-care (01) ==
PROVIDERS: PCP Family Medicine; Visit Provider Family Medicine
DX: Z00.00 Encounter for general adult medical examination without abnormal findings (principal); E11.9 Type 2 diabetes mellitus without complications; I10 Essential (primary) hypertension; E78.5 Hyperlipidemia, unspecified; R73.03 Prediabetes; Z79.899 Other long term (current) drug therapy
CPT/HCPCS: 80053; 80061; 82043; 82570; 82607; 84156

== ENCOUNTER 2022-11-18 10:15 | Outpatient (CLI) | payer OTHER, SELFPAY ==
--- NOTE | 2022-11-18 10:15 | CRLHL7_ITS ---
For Patients: As a result of the Century Cures Act, medical imaging exams and procedure reports are released immediately into your electronic medical record. You may view this report before your referring provider. If you have questions, please contact your health care provider. Indication: Right shoulder pain. Procedure : Informed consent was obtained. The site was marked. Time-out was performed. The skin of the right shoulder was cleansed with ChloraPrep. A sterile drape was placed. 8 cc of 1 percent lidocaine was administered for superficial anesthesia. Subsequently a 22 gauge spinal needle was introduced into the right shoulder joint under intermittent fluoroscopic guidance. Injection of 2 cc nonionic Omnipaque 240 contrast confirmed intra-articular location. Subsequently 11 cc of dilute gadolinium were injected. The needle was removed and hemostasis achieved with direct pressure. A dressing was placed. The patient tolerated the procedure well without immediate complication and was immediately sent to MRI for imaging. Total fluoroscopy time 18 seconds. Impression: Successful fluoroscopically guided right shoulder arthrogram for MRI. Dictated by Michelet Ca MD @ 11/18/2022 11:09:42 AM (Electronically Signed)
--- NOTE | 2022-11-18 11:00 | MR_ITS ---
[address] [address] Phone:?[phone] Fax:?[phone] Referring Physician Information: Eligio Hightower M.D. [id number] [facility] [address] Phone:?[phone] Fax:?[phone] Patient:Paris Parisi D.O.B:?1980 Sex:?Male Phone:?[phone] [facility] MRN:?[id number] Exam Date:?11/18/2022 EXAM: MR ARTHROGRAM of the RIGHT SHOULDER, without contrast CLINICAL: Male, 42 years old, with right shoulder pain. INDICATION: Evaluate for superior glenoid labrum tear and evaluate rotator cuff. PRIOR SURGERY: None reported. PLAIN FILMS: None available. COMPARISONS: 05/22/2020 MRI of the right shoulder. TECHNICAL: This examination performed after gadolinium contrast arthrography, reported separately. Using a 1.5T MR scanner and a localizing shoulder surface coil: 3.0 mm?coronal obliques: PD, T2FS, T1FS 3.0 mm?sagittal obliques: T2, PDFS 3.0 mm?axials: PD, PDFS SEDATION: None. CONTRAST: None. IMPRESSION: 1. Moderate right glenohumeral osteoarthritis, progressed from that also present on 05/22/2020. 2. Mild supraspinatus tendinosis and minor shallow surface irregularity/wear, without larger or full-thickness tear. 3. Broad based labrum attenuation and irregularity as well as a more well- defined linear tear of the superior labrum at as well as anterior and posterior to the biceps anchor, seemingly progressed since 05/22/2020. 4. Chondral debris in joint recesses. 5. No convincing significant biceps tendon pathology. FINDINGS: Glenohumeral joint: Contrast/cyst: Contrast distends joint capsule. No paralabral ganglion cyst. Articular cartilage: Humeral head: Broad-based grade III-IV chondral thinning/loss of most of the humeral head has progressed from that also present on 05/22/2020, without subjacent reactive marrow edema. Glenoid: More localized areas of grade II-III chondromalacia of the glenoid, relatively unchanged since 05/22/2020. Loose bodies: Chondral debris in all joint recesses. Capsule: No convincing adhesive capsulitis or capsular injury. Labrum: Linear tear of the superior labrum at and anterior posterior biceps anchor appears more prominent than the labral degeneration present on the prior 05/22/2020 MRI exam. Marked attenuation and some irregularity of entire anterior into inferior labrum. Also small and somewhat irregular posterior labrum. Bones: Proximal humerus: Moderate inferomedial marginal osteophyte formation of the humeral head reflects the glenohumeral osteoarthritis. The proximal humerus is otherwise intact. No humeral Hill-Sachs or reverse Hill- Sachs lesion/impaction or contusion. Glenoid: No fracture or marrow edema/pathology. No osseous Bankart lesion. Coracoacromial arch: Acromion morphology: Type III acromion with moderate broad-based subacromial spur/enthesophyte. No mesoacromion or preacromion. Acromiohumeral space: Within normal limits at a minimum of 6 mm. Coracohumeral space: Widely patent. Acromioclavicular joint: Joint: No acute injury, arthropathy, or inferior hypertrophy. Ligaments: Coracoclavicular ligaments are intact. Bursae: Subacromial-subdeltoid: No contrast in the subacromial space. Borderline abnormal slender subacromial bursal edema, decreased from that present on 05/22/2020. Subcoracoid: No convincing subcoracoid bursal thickening/bursitis. Rotator cuff and muscles/tendons: Supraspinatus: Mild tendinosis of the supraspinatus tendon with some areas of expected minor superficial and deep surface irregularity but without larger or more well-defined coalescence of partial- or full-thickness tear. No tendon or myotendinous junction retraction. No muscle atrophy. Infraspinatus: No tendinopathy, tear or atrophy. Teres minor: No tendinopathy, tear or atrophy. Subscapularis: No tendinopathy, tear or atrophy. Deltoid: No strain or atrophy. Biceps tendon, long head: Intraarticular and extraarticular segments are intact without rupture, tendinopathy or displacement. [facility] Electronically signed on 11/19/2022 5:57:00 AM by Rasta Fabian M.D.
== END 2022-11-18 10:16 | disposition home or self-care (01) ==
LOC: RAD 10:15
PROVIDERS: PCP Family Medicine; Visit Provider Orthopaedic Surgery Sports Medicine
DX: M25.511 Pain in right shoulder (principal); M75.101 Unspecified rotator cuff tear or rupture of right shoulder, not specified as traumatic; S43.431A Superior glenoid labrum lesion of right shoulder, initial encounter; M19.011 Primary osteoarthritis, right shoulder
CPT/HCPCS: 23350; 73222; 77002; Q9966

== ENCOUNTER 2022-11-23 08:06 | Outpatient (CLI) | payer OTHER, SELFPAY | END 2022-11-23 08:07 | disposition home or self-care (01) | LOC: NFLDREF 11-24 16:42 | PROVIDERS: PCP Family Medicine; Referring Provider Family Medicine; Visit Provider Family Medicine | DX: E78.1 Pure hyperglyceridemia (principal) | CPT/HCPCS: 80061 ==

== ENCOUNTER 2022-12-08 08:01 | Outpatient (CLI) | payer OTHER, SELFPAY | END 2022-12-08 08:02 | disposition home or self-care (01) | LOC: NFLDREF 12-10 09:59 | PROVIDERS: PCP Family Medicine; Referring Provider Family Medicine; Visit Provider Family Medicine | DX: R73.03 Prediabetes (principal); E78.5 Hyperlipidemia, unspecified | CPT/HCPCS: 80053; 80061 ==

== ENCOUNTER 2023-04-16 09:17 | Outpatient (CLI) | payer OTHER, SELFPAY | END 2023-04-16 09:18 | disposition home or self-care (01) | LOC: RAD 09:17 | PROVIDERS: PCP Family Medicine; Visit Provider Family Medicine | DX: I51.7 Cardiomegaly (principal) | CPT/HCPCS: 93306 ==

== ENCOUNTER 2023-06-16 07:30 | Outpatient (RCR) | payer OTHER, SELFPAY | END 2023-10-14 23:59 | disposition home or self-care (01) | PROVIDERS: PCP Family Medicine; Visit Provider Orthopaedic Surgery | DX: M17.11 Unilateral primary osteoarthritis, right knee (principal); Z51.89 Encounter for other specified aftercare | CPT/HCPCS: 97016; 97032; 97110; 97140; 97161 ==

== ENCOUNTER 2024-01-27 13:00 | Outpatient (CLI) | payer OTHER, SELFPAY | END 2024-01-27 13:01 | disposition home or self-care (01) | LOC: FRMREF 13:00 | PROVIDERS: PCP Family Medicine; Visit Provider Family Medicine | DX: E11.9 Type 2 diabetes mellitus without complications (principal); E78.1 Pure hyperglyceridemia; I10 Essential (primary) hypertension; Z13.21 Encounter for screening for nutritional disorder | CPT/HCPCS: 80053; 80061; 82043; 82570; 82607 ==

== ENCOUNTER 2024-07-13 11:42 | Outpatient (CLI) | payer OTHER, SELFPAY | END 2024-07-13 11:43 | disposition home or self-care (01) | PROVIDERS: PCP Family Medicine; Visit Provider Family Medicine | DX: E78.1 Pure hyperglyceridemia (principal); I10 Essential (primary) hypertension; R74.01 Elevation of levels of liver transaminase levels; E11.9 Type 2 diabetes mellitus without complications; R11.0 Nausea | CPT/HCPCS: 80053; 83690 ==

== ENCOUNTER 2024-07-24 07:13 | Outpatient (CLI) | payer OTHER, SELFPAY ==
--- NOTE | 2024-07-24 08:07 | P.ANES_ITS ---
Anesthesia Charges Start Date/Time Anesthesia Start Date: 07/24/24 Anesthesia Start Time: 07:48 Stop Date/Time Anesthesia Stop Date: 07/24/24 Anesthesia Stop Time: 08:02 Coding CPT Codes CPT Codes: ANES UPR GI NDSC PX NOS - 19175 ([id number]) P2 - PATIENT W/MILD SYST DISEASE, QX - GLASS PULVERIZER EQUIPMENT OPERATOR SVC W/ MD MED DIRECTION, QK - ART SALES CONSULTANT 2-4 CNCRNT ANES PROC
--- NOTE | 2024-07-24 08:07 | W.ANESCHARGE ---
Anesthesia Charges Start Date/Time Anesthesia Start Date: 07/24/24 Anesthesia Start Time: 07:48 Stop Date/Time Anesthesia Stop Date: 07/24/24 Anesthesia Stop Time: 08:02 Coding CPT Codes CPT Codes: ANES UPR GI NDSC PX NOS - 47439 ([id number]) P2 - PATIENT W/MILD SYST DISEASE, QX - SALOONKEEPER SVC W/ MD MED DIRECTION, QK - INTRUSION ANALYST 2-4 CNCRNT ANES PROC
--- NOTE | 2024-07-24 09:27 | P.ANES_ITS ---
Anesthesia Charges Start Date/Time Anesthesia Start Date: 07/24/24 Anesthesia Start Time: 07:48 Stop Date/Time Anesthesia Stop Date: 07/24/24 Anesthesia Stop Time: 08:02 Coding CPT Codes CPT Codes: ANES UPR GI NDSC PX NOS - 28634 ([id number]) QK - COMMISSIONER OF RELOCATION SERVICES 2-4 CNCRNT ANES PROC, QX - MEMBERSHIP SOLICITOR SVC W/ MD MED DIRECTION, P2 - PATIENT W/MILD SYST DISEASE
--- NOTE | 2024-07-24 09:27 | W.ANESCHARGE ---
Anesthesia Charges Start Date/Time Anesthesia Start Date: 07/24/24 Anesthesia Start Time: 07:48 Stop Date/Time Anesthesia Stop Date: 07/24/24 Anesthesia Stop Time: 08:02 Coding CPT Codes CPT Codes: ANES UPR GI NDSC PX NOS - 34106 ([id number]) QK - CABLE FERRY OPERATOR 2-4 CNCRNT ANES PROC, QX - PLASTICS REPAIRER SVC W/ MD MED DIRECTION, P2 - PATIENT W/MILD SYST DISEASE
== END 2024-07-24 07:14 | disposition home or self-care (01) ==
LOC: OP CLINIC 07:13
PROVIDERS: PCP Family Medicine; Visit Provider Internal Medicine
DX: R10.13 Epigastric pain (principal)
CPT/HCPCS: 00731; 43239; J2704; J3490

== ENCOUNTER 2024-10-17 12:53 | Outpatient (CLI) | payer OTHER, SELFPAY | END 2024-10-17 12:54 | disposition home or self-care (01) | PROVIDERS: PCP Family Medicine; Visit Provider Family Medicine | DX: E11.9 Type 2 diabetes mellitus without complications (principal); I10 Essential (primary) hypertension; R63.4 Abnormal weight loss; R74.01 Elevation of levels of liver transaminase levels; R53.83 Other fatigue; Z79.899 Other long term (current) drug therapy | CPT/HCPCS: 80053; 80061; 82306; 84443 ==

== ENCOUNTER 2025-04-02 07:30 | Outpatient (CLI) | payer OTHER, SELFPAY | END 2025-04-02 07:31 | disposition home or self-care (01) | PROVIDERS: PCP Family Medicine; Visit Provider Family Medicine | DX: E78.1 Pure hyperglyceridemia (principal); I10 Essential (primary) hypertension; E11.9 Type 2 diabetes mellitus without complications; Z11.59 Encounter for screening for other viral diseases | CPT/HCPCS: 80053; 80061; 82043; 82570; 82607; 86803; G0103 ==